=== PATIENT | male | born 1960 | race American Indian/Alaskan Native ===

== ENCOUNTER 2017-04-11 05:03 | Emergency (ER) | payer BC, OTHER ==
[2017-04-11 05:11] VITALS: BP 169/98
--- NOTE | 2017-04-11 05:18 | EDM.PDOC ---
ED HPI GENERAL MEDICAL PROBLEM - General Chief Complaint: Fever Stated Complaint: CHILLS AND CANT WARM UP Time Seen by Provider: 04/11/17 05:17 Source of Information: Reports: Patient History Limitations: Reports: No Limitations - History of Present Illness INITIAL COMMENTS - FREE TEXT/NARRATIVE: c/o chills shaky past few hours not getting any better. - Related Data Allergies Allergy/AdvReac Type Severity Reaction Status Date / Time No Known Allergies Allergy Verified 04/11/17 05:13 Home Meds: Home Meds Acetaminophen [Tylenol] 650 mg PO TID 04/11/17 [History] Aspirin [Ecotrin] 81 mg PO DAILY 04/11/17 [History] Gabapentin [Neurontin] 300 mg PO TID 04/11/17 [History] Insulin Aspart [NovoLOG] 18 unit SUBCUT TIDAC 04/11/17 [History] Insulin Detemir [Levemir] 32 unit SQ BID 04/11/17 [History] Lisinopril [Prinivil] 5 mg PO DAILY 04/11/17 [History] Past Medical History HEENT History: Reports: Impaired Vision Cardiovascular History: Reports: Hypertension Genitourinary History: Reports: Diabetic Nephropathy Musculoskeletal History: Reports: Osteoarthritis Neurological History: Reports: Neuropathy, Diabetic Endocrine/Metabolic History: Reports: Diabetes, Type II, Obesity/BMI 30+ - Past Surgical History GI Surgical History: Reports: Cholecystectomy Social & Family History - Family History Family Medical History: Noncontributory - Tobacco Use Smoking Status *Q: Former Smoker (quit at age 40.) Second Hand Smoke Exposure: No - Recreational Drug Use Recreational Drug Use: No - Living Situation & Occupation Living situation: Reports: with Family Occupation: Disabled ED ROS GENERAL - Review of Systems Review Of Systems: ROS reveals no pertinent complaints other than HPI. ED EXAM, GENERAL - Physical Exam Exam: See Below Exam Limited By: No Limitations General Appearance: Alert, WD/WN, Mild Distress, Other (general discomfort) Ears: Hearing Grossly Normal Throat/Mouth: Normal Voice, No Airway Compromise, Inflammation Head: Atraumatic Neck: Non-Tender, Full Range of Motion Respiratory/Chest: No Respiratory Distress, Lungs Clear, Normal Breath Sounds Cardiovascular: Regular Rate, Rhythm GI/Abdominal: Soft, Non-Tender Neurological: Alert, Oriented, Normal Cognition, Normal Gait, No Motor/Sensory Deficits Psychiatric: Tearful Skin Exam: Warm, Dry Lymphatic: No Adenopathy Course - Vital Signs Last Recorded V/S: Last Vital Signs Temp 37.6 C 04/11/17 05:09 Pulse 118 H 04/11/17 05:09 Resp 16 04/11/17 05:09 BP 169/98 H 04/11/17 05:09 Pulse Ox 95 04/11/17 05:09 - Orders/Labs/Meds Orders: Active Orders 24 hr Category Date Time Status CULTURE STREP A CONFIRMATION [] Stat Lab 04/11/17 05:12 Results STREP SCRN A RAPID W CULT CONF [] Stat Lab 04/11/17 05:12 Results Ketorolac [Toradol] Med 04/11/17 05:53 Once 30 mg IM ONETIME ONE cefTRIAXone 1 GM,Lidocaine 1% 2.1 ML Med 04/11/17 05:53 Ordered cefTRIAXone [Rocephin] 1 gm Lidocaine 1% [Xylocaine-MPF 1%] 2.1 ml IM ONETIME - Re-Assessments/Exams Free Text/Narrative Re-Assessment/Exam: 04/11/17 05:54 results discussed with pt & spouse Departure - Departure Time of Disposition: 05:54 Disposition: Home, Self-Care 01 Condition: Good Clinical Impression: Tonsillitis, Viral syndrome - Discharge Information Instructions: Fever, Adult, [id number] Forms: ED Department Discharge Additional Instructions: 1) drink lots of liquids 2) take aspirin 4 hourly for fever & chills 3) recheck as needed - My Orders Last 24 Hours: My Active Orders 04/11/17 05:12 CULTURE STREP A CONFIRMATION [] Stat STREP SCRN A RAPID W CULT CONF [] Stat 04/11/17 05:53 Ketorolac [Toradol] 30 mg IM ONETIME ONE cefTRIAXone 1 GM,Lidocaine 1% 2.1 ML cefTRIAXone [Rocephin] 1 gm Lidocaine 1% [ Xylocaine-MPF 1%] 2.1 ml IM ONETIME - Assessment/Plan Last 24 Hours: My Active Orders 04/11/17 05:12 CULTURE STREP A CONFIRMATION [RM] Stat STREP SCRN A RAPID W CULT CONF [] Stat 04/11/17 05:53 Ketorolac [Toradol] 30 mg IM ONETIME ONE cefTRIAXone 1 GM,Lidocaine 1% 2.1 ML cefTRIAXone [Rocephin] 1 gm Lidocaine 1% [ Xylocaine-MPF 1%] 2.1 ml IM ONETIME
[2017-04-11] MEDS ORDERED: cefTRIAXone 1 GM, Lidocaine 1% 2.1 ML IM ONE ×2 (05:53)
[2017-04-11] MEDS ORDERED: Ketorolac 30 MG/ML SDV IM ONE (05:53)
== END 2017-04-11 06:26 | disposition home or self-care (01) ==
LOC: DL.ED 05:03
DX: J03.90 Acute tonsillitis, unspecified (principal); B34.9 Viral infection, unspecified; H54.7 Unspecified visual loss; I10 Essential (primary) hypertension; E11.21 Type 2 diabetes mellitus with diabetic nephropathy; E11.40 Type 2 diabetes mellitus with diabetic neuropathy, unspecified; E66.9 Obesity, unspecified; Z90.49 Acquired absence of other specified parts of digestive tract; Z87.891 Personal history of nicotine dependence; Z79.899 Other long term (current) drug therapy; Z79.82 Long term (current) use of aspirin; Z79.4 Long term (current) use of insulin
CPT/HCPCS: 87081; 87430; 87804; 99283; J0696; J1885

== ENCOUNTER 2017-06-04 11:08 | Emergency (ER) | payer OTHER ==
[2017-06-04] MEDS ORDERED: Sodium Chloride 0.9% 10 ML Syringe FLUSH PRN (11:26)
--- NOTE | 2017-06-04 11:52 | EDM.PDOC ---
<Kaylie Cruz - Last Filed: 06/04/17 18:08> ED HPI GENERAL MEDICAL PROBLEM - General Chief Complaint: General Stated Complaint: Weakness, nausea, vomiting Time Seen by Provider: 06/04/17 11:15 Source of Information: Reports: Patient, Family History Limitations: Reports: No Limitations - History of Present Illness INITIAL COMMENTS - FREE TEXT/NARRATIVE: Patient presents to the clinic with his with c/o weakness beginning Wednesday. The weakness has been increasing throughout the week with nausea and vomiting beginning yesterday. states they do have a grandchild in the home that has strep throat. The patient states he is diabetic and is blood sugars have been running high. states he has been running fevers for the past few days. Denies chest pains or sob. Onset: Gradual Onset Date: 05/31/17 Severity: Moderate Improves with: Reports: None Worsens with: Reports: Movement Associated Symptoms: Reports: Nausea/Vomiting, Weakness - Related Data Allergies Allergy/AdvReac Type Severity Reaction Status Date / Time No Known Allergies Allergy Verified 04/11/17 05:13 Home Meds: Home Meds Acetaminophen [Tylenol] 650 mg PO TID 04/11/17 [History] Aspirin [Ecotrin] 81 mg PO DAILY 04/11/17 [History] Gabapentin [Neurontin] 300 mg PO TID 04/11/17 [History] Insulin Aspart [NovoLOG] 18 unit SUBCUT TIDAC 04/11/17 [History] Insulin Detemir [Levemir] 32 unit SQ BID 04/11/17 [History] Losartan [Cozaar] 1 tab PO DAILY 06/04/17 [History] Pioglitazone [Actos] 1 tab PO DAILY 06/04/17 [History] Tamsulosin HCl 1 tab PO DAILY 06/04/17 [History] Past Medical History HEENT History: Reports: Impaired Vision Cardiovascular History: Reports: Hypertension Genitourinary History: Reports: Diabetic Nephropathy Musculoskeletal History: Reports: Osteoarthritis Neurological History: Reports: Neuropathy, Diabetic Endocrine/Metabolic History: Reports: Diabetes, Type II, Obesity/BMI 30+ - Infectious Disease History Infectious Disease History: Reports: None - Past Surgical History GI Surgical History: Reports: Cholecystectomy Social & Family History - Family History Family Medical History: Noncontributory - Tobacco Use Smoking Status *Q: Former Smoker (quit at age 40.) Used Tobacco, but Quit: Yes Month Tobacco Last Used: 1999 Second Hand Smoke Exposure: No - Caffeine Use Caffeine Use: Reports: Coffee, Soda, Tea - Recreational Drug Use Recreational Drug Use: No - Living Situation & Occupation Living situation: Reports: with Family Occupation: Disabled ED ROS GENERAL - Review of Systems Review Of Systems: ROS reveals no pertinent complaints other than HPI. ED EXAM, GENERAL - Physical Exam Exam: See Below Exam Limited By: No Limitations General Appearance: Alert, WD/WN, Anxious Eye Exam: Bilateral Eye: Normal Inspection, PERRL Ears: Normal External Exam Nose: Normal Inspection Throat/Mouth: Normal Inspection Head: Atraumatic, Normocephalic Neck: Normal Inspection Respiratory/Chest: No Respiratory Distress, Lungs Clear, Normal Breath Sounds, No Accessory Muscle Use, Chest Non-Tender Cardiovascular: Normal Peripheral Pulses, Regular Rate, Rhythm, No Edema, No Gallop, No JVD, No Murmur, No Rub Peripheral Pulses: 1+: Radial (L), Radial (R) GI/Abdominal: Normal Bowel Sounds, Soft, Non-Tender (Male) Exam: Deferred Rectal (Males) Exam: Deferred Back Exam: Normal Inspection, Full Range of Motion Extremities: Normal Inspection, Normal Range of Motion Neurological: Alert, Oriented, Normal Cognition Psychiatric: Anxious Skin Exam: Warm, Dry, Intact Lymphatic: No Adenopathy Course - Vital Signs Last Recorded V/S: Last Vital Signs Temp 36.3 C 06/04/17 11:16 Pulse 90 06/04/17 11:16 Resp 36 H 06/04/17 11:16 BP 154/87 H 06/04/17 11:16 Pulse Ox 98 06/04/17 11:16 - Orders/Labs/Meds Orders: Active Orders 24 hr Category Date Time Status Blood Glucose Check, Bedside [RC] ONETIME Care 06/04/17 11:10 Active EKG Documentation Completion [RC] STAT Care 06/04/17 11:26 Active Peripheral IV Care [RC] . DIRECTED Care 06/04/17 11:29 Active Peripheral IV Insertion Adult [OM.PC] Stat Oth 06/04/17 11:26 Ordered Labs: Laboratory Tests 06/04/17 06/04/17 06/04/17 Range/Units 11:22 11:40 11:40 WBC 11.9 H (5.0-10.0) 10^3/uL RBC 5.97 (4.6-6.2) 10^6/uL Hgb 15.5 (14.0-18.0) g/dL Hct 48.0 (40.0-54.0) % MCV 80.4 (80-100) fL MCH 26.0 L (27.0-34.0) pg MCHC 32.3 L (33.0-35.0) g/dL Plt Count 210 (150-450) 10^3/uL Neut % (Auto) 82.5 H (42.2-75.2) % Lymph % (Auto) 10.6 L (20.5-50.1) % Bennett % (Auto) 6.3 (2-8) % Eos % (Auto) 0.2 L (1.0-3.0) % Baso % (Auto) 0.4 (0.0-1.0) % Sodium 138 (135-145) mmol/L Potassium 4.1 (3.6-5.0) mmol/L Chloride 103 (101-111) mmol/L Carbon Dioxide 24.0 (21.0-31.0) mmol/L Anion Gap 15.1 BUN 30 H (7-18) mg/dL Creatinine 1.7 H (0.6-1.3) mg/dL Est Cr Clr Drug Dosing TNP Estimated GFR (MDRD) 42 BUN/Creatinine Ratio 17.64 Glucose 315 H (74-105) mg/dL POC Glucose 321 H (70-105) mg/dl Lactic Acid (0.5-2.2) mmol/L Calcium 9.0 (8.4-10.2) mg/dl Magnesium 2.1 (1.8-2.5) mg/dL Total Bilirubin 0.5 (0.2-1.0) mg/dL AST 18 (10-42) IU/L ALT 25 (10-60) IU/L Alkaline Phosphatase 90 (42-121) IU/L Troponin I < 0.02 (0.00-0.02) ng/ml C-Reactive Protein (0.0-1.3) mg/dL Total Protein 7.4 (6.7-8.2) g/dl Albumin 3.2 (3.2-5.5) g/dl Globulin 4.2 Albumin/Globulin Ratio 0.76 TSH, Ultra Sensitive (0.35-7.0) uIu/mL 06/04/17 06/04/17 Range/Units 11:40 11:40 WBC (5.0-10.0) 10^3/uL RBC (4.6-6.2) 10^6/uL Hgb (14.0-18.0) g/dL Hct (40.0-54.0) % MCV (80-100) fL MCH (27.0-34.0) pg MCHC (33.0-35.0) g/dL Plt Count (150-450) 10^3/uL Neut % (Auto) (42.2-75.2) % Lymph % (Auto) (20.5-50.1) % Bennett % (Auto) (2-8) % Eos % (Auto) (1.0-3.0) % Baso % (Auto) (0.0-1.0) % Sodium (135-145) mmol/L Potassium (3.6-5.0) mmol/L Chloride (101-111) mmol/L Carbon Dioxide (21.0-31.0) mmol/L Anion Gap BUN (7-18) mg/dL Creatinine (0.6-1.3) mg/dL Est Cr Clr Drug Dosing Estimated GFR (MDRD) BUN/Creatinine Ratio Glucose (74-105) mg/dL POC Glucose (70-105) mg/dl Lactic Acid 1.9 (0.5-2.2) mmol/L Calcium (8.4-10.2) mg/dl Magnesium (1.8-2.5) mg/dL Total Bilirubin (0.2-1.0) mg/dL AST (10-42) IU/L ALT (10-60) IU/L Alkaline Phosphatase (42-121) IU/L Troponin I (0.00-0.02) ng/ml C-Reactive Protein 0.7 (0.0-1.3) mg/dL Total Protein (6.7-8.2) g/dl Albumin (3.2-5.5) g/dl Globulin Albumin/Globulin Ratio TSH, Ultra Sensitive 1.24 (0.35-7.0) uIu/mL Meds: Medications Discontinued Medications Generic Name Dose Route Start Last Admin Trade Name Freq PRN Reason Stop Dose Admin Ondansetron HCl 4 mg 06/04/17 12:16 06/04/17 12:24 Zofran IV 06/04/17 12:17 4 mg ONETIME ONE Administration Sodium Chloride 10 ml 06/04/17 11:26 06/04/17 11:23 Saline Flush FLUSH 10 ml ASDIRECTED PRN Administration Keep Vein Open Departure - Departure Time of Disposition: 12:56 Disposition: DC/Tfer to Acute Hospital 02 Clinical Impression: CVA, Cerebrovascular accident Nontraumatic cerebellar hemorrhage Qualifiers: Laterality: unspecified laterality Qualified Code(s): I61.4 - Nontraumatic intracerebral hemorrhage in cerebellum - Discharge Information Referrals: Skip Reyez [Primary Care Provider] - Forms: ED Department Discharge, Interfacility Transfer EMTDOMENICA <Huang Payne - Last Filed: 06/05/17 10:57> Course - Radiology Interpretation Free Text/Narrative:: CT Head: acute cerebellar hemorrhage, see Rad. report. Departure - Departure Condition: Critical
[2017-06-04 12:06] LABS: CHLORIDE,CL 103 mmol/L (101-111); SODIUM,NA 138 mmol/L (135-145)
--- NOTE | 2017-06-04 12:10 | CT ---
Clinical history: 57-year-old morbidly obese hypertensive, insulin-dependent diabetic with severe shelly tigo (baby aspirin). Scan technique: Volume acquisition of data emergency unenhanced CT scan of the head and brain obtaine d with patient lying supine on the Siemens multi slice scanner [facility]. All data archived in the PACS system for storage, reformatting axial/sagittal/coronal plane s and study (bone/brain windows). Interpretation: Abnormal. 1. *Prominent 2.2 cm diameter hematoma (acute bleed) cerebellum on the right with surrounding edema a nd mass effect, partially compromising the fourth ventricle in the posterior fossa. 2. No sign of acute supratentorial intracerebral/intraventricular/subarachnoid blood. No epidural or subdural hematoma. 3. Mirror-image normal lateral ventricles and midline third ventricle. No supratentorial or posterior fossa mass lesion. 4. Brainstem unremarkable. 5. Uniformly thick bony calvarium. Symmetric clear pneumatization of the mastoid and paranasal sinuse s.
--- NOTE | 2017-06-04 12:12 | CR ---
Clinical history: 57-year-old hypertensive diabetic male with severe vertigo (acute posterior fossa, cerebellar, bleed). Interpretation: No acute cardiopulmonary abnormality identified despite less than optimal inspiratory effort obese patient. Normal cardiac silhouette without alveolar edema or dependent effusion. No lung mass, hilar lymphadenopathy or focal lobar pneumonia. No atelectasis/collapse. No pneumothorax.
[2017-06-04] MEDS ORDERED: Ondansetron 4 MG/2 ML SDV IV ONE (12:16)
[2017-06-04 12:17] VITALS: BP 154/87
--- NOTE | 2017-06-06 13:13 | EKG ---
06/04/2017 - AVTAR BETANCUR - A 12-lead EKG interpretation shows possible atrial flutter with irregular rate. No significant ST elevation or ST depression noted on this 12-lead EKG. Nonspecific ST-T wave changes noted on lead V2 and V3. [facility] /[id number]
== END 2017-06-04 12:56 ==
LOC: DL.ED 11:08
DX: I61.4 Nontraumatic intracerebral hemorrhage in cerebellum (principal); H54.7 Unspecified visual loss; I10 Essential (primary) hypertension; E66.9 Obesity, unspecified; E11.40 Type 2 diabetes mellitus with diabetic neuropathy, unspecified; M19.90 Unspecified osteoarthritis, unspecified site; Z87.891 Personal history of nicotine dependence; Z79.82 Long term (current) use of aspirin; Z90.49 Acquired absence of other specified parts of digestive tract
CPT/HCPCS: 36415; 70450; 71010; 80053; 82962; 83605; 83735; 84443; 84484; 85025; 86140; 87430; 93005; 96374; 99285; J2405; J7050

== ENCOUNTER 2017-06-23 20:35 | Emergency (ER) | payer OTHER ==
[2017-06-23 21:46] VITALS: BP 159/116
[2017-06-23] MEDS ORDERED: Insulin Regular, Human 100 Units/ML 3 ML Vial IV ONE (21:55)
[2017-06-23] MEDS ORDERED: Morphine 2 MG/ML Syringe IVPUSH ONE (22:03)
[2017-06-23] MEDS ORDERED: HYDROmorphone 1 MG/ML Syringe IVPUSH ONE (22:08)
[2017-06-23] MEDS ORDERED: Sodium Chloride 0.9% 1,000 ML IV ONE (22:09)
--- NOTE | 2017-06-24 05:46 | EDM.PDOC ---
ED HPI GENERAL MEDICAL PROBLEM - General Chief Complaint: Neuro Symptoms/Deficits Stated Complaint: HX OF BRAIN BLEED,SPEECH ETC, [id number] Time Seen by Provider: 06/23/17 21:45 Source of Information: Reports: Patient History Limitations: Reports: No Limitations - History of Present Illness INITIAL COMMENTS - FREE TEXT/NARRATIVE: ED with with c/o increased weakness and tremor to left arm, with confusion. Hx intracranial bleed 06/04 and surgery to remove mass on 06/12. reports blod sugar last eleazar 528 and in 300 range today. Patient had been on steroids but thinks he has completed course. Unsure of current medications. BP medications have changed. Frontal Headache Pain Score (Numeric/FACES): 8 - Related Data Allergies Allergy/AdvReac Type Severity Reaction Status Date / Time No Known Allergies Allergy Verified 04/11/17 05:13 Home Meds: Home Meds Acetaminophen [Tylenol] 650 mg PO TID 04/11/17 [History] Aspirin [Ecotrin] 81 mg PO DAILY 04/11/17 [History] Gabapentin [Neurontin] 300 mg PO TID 04/11/17 [History] Insulin Aspart [NovoLOG] 18 unit SUBCUT TIDAC 04/11/17 [History] Insulin Detemir [Levemir] 32 unit SQ BID 04/11/17 [History] Losartan [Cozaar] 1 tab PO DAILY 06/04/17 [History] Pioglitazone [Actos] 1 tab PO DAILY 06/04/17 [History] Tamsulosin HCl 1 tab PO DAILY 06/04/17 [History] Past Medical History HEENT History: Reports: Impaired Vision Other HEENT History: wears glasses Cardiovascular History: Reports: Hypertension Genitourinary History: Reports: Diabetic Nephropathy Musculoskeletal History: Reports: Osteoarthritis Neurological History: Reports: Neuropathy, Diabetic Endocrine/Metabolic History: Reports: Diabetes, Type II, Obesity/BMI 30+ - Infectious Disease History Infectious Disease History: Reports: None - Past Surgical History GI Surgical History: Reports: Cholecystectomy Social & Family History - Family History Family Medical History: Noncontributory - Tobacco Use Smoking Status *Q: Unknown Ever Smoked Used Tobacco, but Quit: Yes Month Tobacco Last Used: 1999 Second Hand Smoke Exposure: No - Caffeine Use Caffeine Use: Reports: Coffee, Soda - Recreational Drug Use Recreational Drug Use: No - Living Situation & Occupation Living situation: Reports: with Family Occupation: Disabled ED ROS GENERAL - Review of Systems Review Of Systems: See Below Constitutional: Reports: Weakness HEENT: Reports: No Symptoms Respiratory: Reports: Other (Breathing fast). Denies: Cough Cardiovascular: Reports: No Symptoms Endocrine: Reports: High Glucose GI/Abdominal: Reports: No Symptoms : Reports: Frequency Musculoskeletal: Reports: No Symptoms Skin: Reports: Wound (surgical occipital) Neurological: Reports: Confusion, Headache, Tremors, Difficulty Walking, Gait Disturbance ED EXAM, NEURO - Physical Exam Exam: See Below Exam Limited By: No Limitations General Appearance: Alert, Lethargic Eye Exam: Bilateral Eye: EOMI, Normal Fundi, PERRL Ears: Normal External Exam, Normal TMs Nose: Normal Inspection Throat/Mouth: Normal Inspection Head Exam: Normocephalic, Other (sugical incision occiptial CDI) Respiratory/Chest: Lungs Clear, Other (tachpnea). No: Rales, Rhonchi, Wheezing Cardiovascular: Regular Rate, Rhythm, Tachycardia GI/Abdominal: Normal Bowel Sounds, Soft, Non-Tender Neurological: Alert, Normal Dorsiflexion, Tremor (left), Difficulty Walking ( transfer with assist . equal strong community center worker strength, no pronator drift. ). No: Oriented x 3 (oreinted person, confused time place, question on date would state [place]. responses delayed), Abnormal Finger to Nose Extremities: Normal Inspection Psychiatric: Flat Affect Skin Exam: Warm, Dry, Intact, Normal Color Course - Vital Signs Last Recorded V/S: Last Vital Signs Temp 99.4 F 06/23/17 21:44 Pulse 130 H 06/23/17 21:44 Resp 20 06/23/17 21:44 BP 159/116 H 06/23/17 21:44 Pulse Ox 95 06/23/17 21:44 - Orders/Labs/Meds Orders: Active Orders 24 hr Category Date Time Status Glucose [Blood Glucose Check, Bedside] [RC] ONETIME Care 06/23/17 21:02 Active Glucose [Blood Glucose Check, Bedside] [RC] ONETIME Care 06/23/17 23:40 Active CULTURE BLOOD [BC] Stat Lab 06/23/17 21:30 Received CULTURE BLOOD [BC] Stat Lab 06/23/17 21:48 Received Blood Culture x2 Reflex Set [OM.PC] Stat Oth 06/23/17 21:02 Ordered Labs: Laboratory Tests 06/23/17 06/23/17 06/23/17 Range/Units 21:30 21:30 21:30 WBC 16.8 H (5.0-10.0) 10^3/uL RBC 6.20 (4.6-6.2) 10^6/uL Hgb 16.3 (14.0-18.0) g/dL Hct 48.9 (40.0-54.0) % MCV 78.9 L (80-100) fL MCH 26.3 L (27.0-34.0) pg MCHC 33.3 (33.0-35.0) g/dL Plt Count 297 D (150-450) 10^3/uL Neut % (Auto) 87.1 H (42.2-75.2) % Lymph % (Auto) 5.8 L (20.5-50.1) % [place] % (Auto) 5.8 (2-8) % Eos % (Auto) 1.1 (1.0-3.0) % Baso % (Auto) 0.2 (0.0-1.0) % PT 9.0 (9.0-12.0) SEC INR 0.9 (0.9-1.2) Sodium 126 L D (135-145) mmol/L Potassium 5.1 H (3.6-5.0) mmol/L Chloride 91 L D (101-111) mmol/L Carbon Dioxide 24.0 (21.0-31.0) mmol/L Anion Gap 16.1 BUN 46 H (7-18) mg/dL Creatinine 2.0 H (0.6-1.3) mg/dL Est Cr Clr Drug Dosing 40.75 mL/min Estimated GFR (MDRD) 35 BUN/Creatinine Ratio 23.00 Glucose 382 H (74-105) mg/dL POC Glucose (70-105) mg/dl Lactic Acid (0.5-2.2) mmol/L Calcium 8.4 (8.4-10.2) mg/dl Total Bilirubin 0.4 (0.2-1.0) mg/dL AST 52 H (10-42) IU/L ALT 112 H (10-60) IU/L Alkaline Phosphatase 198 H (42-121) IU/L Total Protein 7.1 (6.7-8.2) g/dl Albumin 2.5 L (3.2-5.5) g/dl Globulin 4.6 Albumin/Globulin Ratio 0.54 Urine Color (YELLOW) Urine Appearance (CLEAR) Urine pH (5.0-9.0) Ur Specific [place] (1.005-1.030) Urine Protein (NEGATIVE) Urine Glucose (UA) (NEGATIVE) Urine Ketones (NEGATIVE) Urine Occult Blood (NEGATIVE) Urine Nitrite (NEGATIVE) Urine Bilirubin (NEGATIVE) Urine Urobilinogen (0.2-1.0) mg/dL Ur Leukocyte Esterase (NEGATIVE) Urine RBC /HPF Urine WBC (0-5/HPF) /HPF Ur Epithelial Cells /HPF Amorphous Sediment (0/HPF) /HPF Urine Bacteria (0-FEW/HPF) /HPF Granular Casts /LPF Fine Granular Casts (0/LPF) /LPF 06/23/17 06/23/17 06/23/17 Range/Units 21:30 21:41 22:10 WBC (5.0-10.0) 10^3/uL RBC (4.6-6.2) 10^6/uL Hgb (14.0-18.0) g/dL Hct (40.0-54.0) % MCV (80-100) fL MCH (27.0-34.0) pg MCHC (33.0-35.0) g/dL Plt Count (150-450) 10^3/uL Neut % (Auto) (42.2-75.2) % Lymph % (Auto) (20.5-50.1) % [place] % (Auto) (2-8) % Eos % (Auto) (1.0-3.0) % Baso % (Auto) (0.0-1.0) % PT (9.0-12.0) SEC INR (0.9-1.2) Sodium (135-145) mmol/L Potassium (3.6-5.0) mmol/L Chloride (101-111) mmol/L Carbon Dioxide (21.0-31.0) mmol/L Anion Gap BUN (7-18) mg/dL Creatinine (0.6-1.3) mg/dL Est Cr Clr Drug Dosing mL/min Estimated GFR (MDRD) BUN/Creatinine Ratio Glucose (74-105) mg/dL POC Glucose 417 H* (70-105) mg/dl Lactic Acid 1.5 (0.5-2.2) mmol/L Calcium (8.4-10.2) mg/dl Total Bilirubin (0.2-1.0) mg/dL AST (10-42) IU/L ALT (10-60) IU/L Alkaline Phosphatase (42-121) IU/L Total Protein (6.7-8.2) g/dl Albumin (3.2-5.5) g/dl Globulin Albumin/Globulin Ratio Urine Color Dark yellow (YELLOW) Urine Appearance Cloudy (CLEAR) Urine pH 5.0 (5.0-9.0) Ur Specific [place] 1.020 (1.005-1.030) Urine Protein >=300 H (NEGATIVE) Urine Glucose (UA) 500 H (NEGATIVE) Urine Ketones Negative (NEGATIVE) Urine Occult Blood Moderate H (NEGATIVE) Urine Nitrite Negative (NEGATIVE) Urine Bilirubin Negative (NEGATIVE) Urine Urobilinogen 0.2 (0.2-1.0) mg/dL Ur Leukocyte Esterase Negative (NEGATIVE) Urine RBC 5-10 H /HPF Urine WBC 0-5 (0-5/HPF) /HPF Ur Epithelial Cells Rare /HPF Amorphous Sediment Few (0/HPF) /HPF Urine Bacteria Few (0-FEW/HPF) /HPF Granular Casts Moderate /LPF Fine Granular Casts Rare H (0/LPF) /LPF 06/23/17 Range/Units 23:44 WBC (5.0-10.0) 10^3/uL RBC (4.6-6.2) 10^6/uL Hgb (14.0-18.0) g/dL Hct (40.0-54.0) % MCV (80-100) fL MCH (27.0-34.0) pg MCHC (33.0-35.0) g/dL Plt Count (150-450) 10^3/uL Neut % (Auto) (42.2-75.2) % Lymph % (Auto) (20.5-50.1) % [place] % (Auto) (2-8) % Eos % (Auto) (1.0-3.0) % Baso % (Auto) (0.0-1.0) % PT (9.0-12.0) SEC INR (0.9-1.2) Sodium (135-145) mmol/L Potassium (3.6-5.0) mmol/L Chloride (101-111) mmol/L Carbon Dioxide (21.0-31.0) mmol/L Anion Gap BUN (7-18) mg/dL Creatinine (0.6-1.3) mg/dL Est Cr Clr Drug Dosing mL/min Estimated GFR (MDRD) BUN/Creatinine Ratio Glucose (74-105) mg/dL POC Glucose 309 H (70-105) mg/dl Lactic Acid (0.5-2.2) mmol/L Calcium (8.4-10.2) mg/dl Total Bilirubin (0.2-1.0) mg/dL AST (10-42) IU/L ALT (10-60) IU/L Alkaline Phosphatase (42-121) IU/L Total Protein (6.7-8.2) g/dl Albumin (3.2-5.5) g/dl Globulin Albumin/Globulin Ratio Urine Color (YELLOW) Urine Appearance (CLEAR) Urine pH (5.0-9.0) Ur Specific [place] (1.005-1.030) Urine Protein (NEGATIVE) Urine Glucose (UA) (NEGATIVE) Urine Ketones (NEGATIVE) Urine Occult Blood (NEGATIVE) Urine Nitrite (NEGATIVE) Urine Bilirubin (NEGATIVE) Urine Urobilinogen (0.2-1.0) mg/dL Ur Leukocyte Esterase (NEGATIVE) Urine RBC /HPF Urine WBC (0-5/HPF) /HPF Ur Epithelial Cells /HPF Amorphous Sediment (0/HPF) /HPF Urine Bacteria (0-FEW/HPF) /HPF Granular Casts /LPF Fine Granular Casts (0/LPF) /LPF Meds: Medications Discontinued Medications Generic Name Dose Route Start Last Admin Trade Name Freq PRN Reason Stop Dose Admin Hydromorphone HCl 1 mg 06/23/17 22:08 06/23/17 22:25 Dilaudid IVPUSH 06/23/17 22:09 1 mg ONETIME ONE Administration Sodium Chloride 1,000 mls @ 200 mls/hr 06/23/17 22:09 06/23/17 22:25 Normal Saline IV 06/24/17 03:08 200 mls/hr .BOLUS ONE Administration Insulin Human Regular 5 unit 06/23/17 21:55 06/23/17 22:27 Humulin R IV 06/23/17 21:56 5 units ONETIME ONE Administration Protocol Morphine Sulfate 2 mg 06/23/17 22:03 06/23/17 22:29 Morphine IVPUSH 06/23/17 22:04 Not Given ONETIME ONE - Radiology Interpretation Free Text/Narrative:: CT head- no acute hemorrhage or ischemia. Scattered globules of extra axial fat density with in ventricular system of uncertain etiology. 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 David Romeo, accepting of patient in transfer for further evaluation and mangement. Departure - Departure Time of Disposition: 00:15 Disposition: DC/Tfer to Acute Hospital 02 Condition: Undetermined Clinical Impression: Recent cerebral hemorrhage Altered mental status Qualifiers: Altered mental status type: disorientation Qualified Code(s): R41.0 - Disorientation, unspecified Hyperglycemia due to type 2 diabetes mellitus Qualifiers: Diabetes mellitus terminal computer operator insulin use: unspecified terminal computer operator insulin use status Qualified Code(s): E11.65 - Type 2 diabetes mellitus with hyperglycemia - Discharge Information Referrals: Norm Carrasquillo MD [Primary Care Provider] - Forms: ED Department Discharge - My Orders Last 24 Hours: My Active Orders 06/23/17 21:02 Glucose [Blood Glucose Check, Bedside] [RC] ONETIME Blood Culture x2 Reflex Set [OM.PC] Stat 06/23/17 21:30 CULTURE BLOOD [BC] Stat 06/23/17 21:48 CULTURE BLOOD [BC] Stat 06/23/17 23:40 Glucose [Blood Glucose Check, Bedside] [RC] ONETIME - Assessment/Plan Last 24 Hours: My Active Orders 06/23/17 21:02 Glucose [Blood Glucose Check, Bedside] [RC] ONETIME Blood Culture x2 Reflex Set [OM.PC] Stat 06/23/17 21:30 CULTURE BLOOD [BC] Stat 06/23/17 21:48 CULTURE BLOOD [BC] Stat 06/23/17 23:40 Glucose [Blood Glucose Check, Bedside] [RC] ONETIME
== END 2017-06-24 00:35 ==
LOC: DL.ED 20:35
DX: I61.4 Nontraumatic intracerebral hemorrhage in cerebellum (principal); E11.65 Type 2 diabetes mellitus with hyperglycemia; I10 Essential (primary) hypertension; E11.40 Type 2 diabetes mellitus with diabetic neuropathy, unspecified; E66.9 Obesity, unspecified; R41.0 Disorientation, unspecified; Z79.82 Long term (current) use of aspirin; Z79.899 Other long term (current) drug therapy; Z79.4 Long term (current) use of insulin
CPT/HCPCS: 36415; 70450; 80053; 81001; 82962; 83605; 85025; 85610; 87040; 96361; 96374; 96375; 99285; J1170; J1815; J7030

== ENCOUNTER 2017-07-12 21:26 | Emergency (ER) | payer OTHER ==
[2017-07-12 21:58] VITALS: BP 113/64
--- NOTE | 2017-07-13 00:09 | EDM.PDOC ---
ED HPI GENERAL MEDICAL PROBLEM - General Chief Complaint: General Stated Complaint: PIC LINE REMOVED, LINE GOING UP ARM Time Seen by Provider: 07/12/17 22:00 Source of Information: Reports: Patient History Limitations: Reports: No Limitations - History of Present Illness INITIAL COMMENTS - FREE TEXT/NARRATIVE: ED with family. voices concern with redness to right upper arm. Patient had PICC line removed yesterday. Hx of CVA, craniotomy, followed by meningitis. Still drainage from base of surical wound. Surgeon aware. No fever or tenderness to right arm. Diabetic, no recent spikes in blood sugars. Onset: Today - Related Data Allergies Allergy/AdvReac Type Severity Reaction Status Date / Time No Known Allergies Allergy Verified 07/12/17 21:58 Home Meds: Home Meds Acetaminophen [Tylenol] 650 mg PO TID 04/11/17 [History] Aspirin [Ecotrin] 81 mg PO DAILY 04/11/17 [History] Gabapentin [Neurontin] 300 mg PO TID 04/11/17 [History] Insulin Aspart [NovoLOG] 18 unit SUBCUT TIDAC 04/11/17 [History] Insulin Detemir [Levemir] 32 unit SQ BID 04/11/17 [History] Losartan [Cozaar] 1 tab PO DAILY 06/04/17 [History] Pioglitazone [Actos] 1 tab PO DAILY 06/04/17 [History] Tamsulosin HCl 1 tab PO DAILY 06/04/17 [History] Past Medical History HEENT History: Reports: Impaired Vision Other HEENT History: wears glasses Cardiovascular History: Reports: High Cholesterol, Hypertension Respiratory History: Reports: Intubation, Previous Genitourinary History: Reports: Diabetic Nephropathy Musculoskeletal History: Reports: Osteoarthritis Neurological History: Reports: Neuropathy, Diabetic Endocrine/Metabolic History: Reports: Diabetes, Type II, Obesity/BMI 30+ - Infectious Disease History Infectious Disease History: Reports: None - Past Surgical History GI Surgical History: Reports: Cholecystectomy Musculoskeletal Surgical History: Reports: Hip Replacement Social & Family History - Family History Family Medical History: Noncontributory - Tobacco Use Smoking Status *Q: Former Smoker Years of Tobacco use: 20 Packs/Tins Daily: 1.5 Used Tobacco, but Quit: Yes Month Tobacco Last Used: dec Second Hand Smoke Exposure: No - Caffeine Use Caffeine Use: Reports: Coffee - Recreational Drug Use Recreational Drug Use: No - Living Situation & Occupation Living situation: Reports: with Family Occupation: Disabled ED ROS GENERAL - Review of Systems Review Of Systems: See Below Constitutional: Denies: Fever ED EXAM, GENERAL - Physical Exam Exam: See Below Exam Limited By: No Limitations General Appearance: Alert, No Apparent Distress, Obese (morbid) Eye Exam: Bilateral Eye: EOMI Ears: Normal External Exam Nose: Normal Inspection Throat/Mouth: Normal Inspection Head: Atraumatic, Normocephalic Neck: Other (posterior inscision from mid java lead developer to base of skull, small amount clear yellow drainag from base of wound). No: Limited Range of Motion, Tender Midline Respiratory/Chest: No Respiratory Distress, Lungs Clear, Normal Breath Sounds Cardiovascular: Normal Peripheral Pulses, Regular Rate, Rhythm GI/Abdominal: Normal Bowel Sounds, Soft Extremities: Normal Inspection, Normal Range of Motion Neurological: Alert, Oriented, Normal Cognition Psychiatric: Normal Affect Skin Exam: Warm, Dry, Other (red area of concernmid lateral upper arm, rectangular outline of dressing. No warmth surrounding area. No open area of redness. Pic line insertion site,scabbed. No redness or swelling. ) Course - Vital Signs Last Recorded V/S: Last Vital Signs Temp 98.8 F 07/12/17 21:53 Pulse 96 07/12/17 21:53 Resp 16 07/12/17 21:53 BP 113/64 07/12/17 21:53 Pulse Ox 95 07/12/17 21:53 - Orders/Labs/Meds Orders: Active Orders 24 hr Category Date Time Status CULTURE BLOOD [BC] Stat Lab 07/12/17 22:35 Received CULTURE BLOOD [BC] Stat Lab 07/12/17 22:40 Received CULTURE WOUND [RM] Stat Lab 07/12/17 22:38 Received Blood Culture x2 Reflex Set [OM.PC] Stat Oth 07/12/17 22:21 Ordered Labs: Laboratory Tests 07/12/17 07/12/17 07/12/17 Range/Units 22:35 22:35 22:35 WBC 7.1 (5.0-10.0) 10^3/uL RBC 4.65 (4.6-6.2) 10^6/uL Hgb 12.3 L D (14.0-18.0) g/dL Hct 38.2 L (40.0-54.0) % MCV 82.2 D (80-100) fL MCH 26.5 L (27.0-34.0) pg MCHC 32.2 L (33.0-35.0) g/dL Plt Count 199 D (150-450) 10^3/uL Neut % (Auto) 56.8 (42.2-75.2) % Lymph % (Auto) 24.4 (20.5-50.1) % [place] % (Auto) 10.4 H (2-8) % Eos % (Auto) 8.1 H (1.0-3.0) % Baso % (Auto) 0.3 (0.0-1.0) % Add Manual Diff Yes Neutrophils % (Manual) 65 (42-75) % Lymphocytes % (Manual) 20 (20-50) % Monocytes % (Manual) 7 (2-8) % Eosinophils % (Manual) 8 H (1-3) % Sodium 135 (135-145) mmol/L Potassium 4.3 (3.6-5.0) mmol/L Chloride 101 (101-111) mmol/L Carbon Dioxide 26.0 (21.0-31.0) mmol/L Anion Gap 12.3 BUN 27 H (7-18) mg/dL Creatinine 1.7 H (0.6-1.3) mg/dL Est Cr Clr Drug Dosing 49.11 mL/min Estimated GFR (MDRD) 42 BUN/Creatinine Ratio 15.88 Glucose 327 H (74-105) mg/dL Lactic Acid 1.2 (0.5-2.2) mmol/L Calcium 8.4 (8.4-10.2) mg/dl Total Bilirubin 0.5 (0.2-1.0) mg/dL AST 16 (10-42) IU/L ALT 24 (10-60) IU/L Alkaline Phosphatase 148 H (42-121) IU/L Total Protein 6.5 L (6.7-8.2) g/dl Albumin 2.7 L (3.2-5.5) g/dl Globulin 3.8 Albumin/Globulin Ratio 0.71 Departure - Departure Time of Disposition: 00:03 Disposition: Home, Self-Care 01 Condition: Good Clinical Impression: Hyperglycemia, Drainage of transplant surgical wound without infection, Skin irritation - Discharge Information Instructions: Wound Infection Referrals: PCP,Unobtain [Primary Care Provider] - Forms: ED Department Discharge Additional Instructions: monitor area around previous picc line and tape burn, follow up if any increased redness monitor drainage from surgical wound, follow up if increase or change follow up if develop fever - My Orders Last 24 Hours: My Active Orders 07/12/17 22:21 Blood Culture x2 Reflex Set [OM.PC] Stat 07/12/17 22:35 CULTURE BLOOD [BC] Stat 07/12/17 22:38 CULTURE WOUND [RM] Stat 07/12/17 22:40 CULTURE BLOOD [BC] Stat - Assessment/Plan Last 24 Hours: My Active Orders 07/12/17 22:21 Blood Culture x2 Reflex Set [OM.PC] Stat 07/12/17 22:35 CULTURE BLOOD [BC] Stat 07/12/17 22:38 CULTURE WOUND [RM] Stat 07/12/17 22:40 CULTURE BLOOD [BC] Stat
== END 2017-07-13 00:21 | disposition home or self-care (01) ==
LOC: DL.ED 21:26
DX: E11.65 Type 2 diabetes mellitus with hyperglycemia (principal); I10 Essential (primary) hypertension; E66.9 Obesity, unspecified; Z87.891 Personal history of nicotine dependence; Z79.4 Long term (current) use of insulin; Z79.82 Long term (current) use of aspirin; Z79.899 Other long term (current) drug therapy; Z98.890 Other specified postprocedural states
CPT/HCPCS: 36415; 80053; 83605; 85025; 87040; 87070; 99282

== ENCOUNTER 2017-07-25 14:17 | Emergency (ER) | payer OTHER ==
[2017-07-25 14:33] VITALS: BP 120/74
--- NOTE | 2017-07-25 14:39 | EDM.PDOC ---
ED HPI GENERAL MEDICAL PROBLEM - General Chief Complaint: Skin Complaint Stated Complaint: [id number] NECK Time Seen by Provider: 07/25/17 14:36 Source of Information: Reports: Patient History Limitations: Reports: No Limitations - History of Present Illness INITIAL COMMENTS - FREE TEXT/NARRATIVE: 57 yo [place] male c/o posterior neck wound dehiscence 2nd time since surgery June 11, 2017. No fever Onset: Today Onset Date: 07/25/17 Onset Time: 17:00 Duration: Day(s): Location: Reports: Neck Quality: Reports: Same as Previous Episode Severity: Mild Improves with: Reports: None Worsens with: Reports: None Context: Reports: Other (previous surgery 06/11/2017) Associated Symptoms: Reports: No Other Symptoms - Related Data Allergies Allergy/AdvReac Type Severity Reaction Status Date / Time No Known Allergies Allergy Verified 07/12/17 21:58 Home Meds: Home Meds Acetaminophen [Tylenol] 650 mg PO TID 04/11/17 [History] Aspirin [Ecotrin] 81 mg PO DAILY 04/11/17 [History] Gabapentin [Neurontin] 300 mg PO TID 04/11/17 [History] Insulin Aspart [NovoLOG] 18 unit SUBCUT TIDAC 04/11/17 [History] Insulin Detemir [Levemir] 32 unit SQ BID 04/11/17 [History] Losartan [Cozaar] 1 tab PO DAILY 06/04/17 [History] Pioglitazone [Actos] 1 tab PO DAILY 06/04/17 [History] Tamsulosin HCl 1 tab PO DAILY 06/04/17 [History] Past Medical History HEENT History: Reports: Impaired Vision Other HEENT History: wears glasses Cardiovascular History: Reports: High Cholesterol, Hypertension Respiratory History: Reports: Intubation, Previous Genitourinary History: Reports: Diabetic Nephropathy Musculoskeletal History: Reports: Osteoarthritis Neurological History: Reports: Neuropathy, Diabetic Endocrine/Metabolic History: Reports: Diabetes, Type II, Obesity/BMI 30+ - Infectious Disease History Infectious Disease History: Reports: None - Past Surgical History GI Surgical History: Reports: Cholecystectomy Musculoskeletal Surgical History: Reports: Hip Replacement Social & Family History - Family History Family Medical History: Noncontributory - Tobacco Use Smoking Status *Q: Former Smoker Years of Tobacco use: 20 Packs/Tins Daily: 1.5 Used Tobacco, but Quit: Yes Month Tobacco Last Used: dec Second Hand Smoke Exposure: No - Caffeine Use Caffeine Use: Reports: Coffee - Recreational Drug Use Recreational Drug Use: No - Living Situation & Occupation Living situation: Reports: with Family Occupation: Disabled ED ROS GENERAL - Review of Systems Review Of Systems: See Below Constitutional: Reports: No Symptoms HEENT: Reports: No Symptoms Respiratory: Reports: No Symptoms Cardiovascular: Reports: No Symptoms Endocrine: Reports: No Symptoms GI/Abdominal: Reports: No Symptoms : Reports: No Symptoms Musculoskeletal: Reports: No Symptoms Skin: Reports: Wound (posterior neck) Neurological: Reports: No Symptoms Psychiatric: Reports: No Symptoms Hematologic/Lymphatic: Reports: No Symptoms Immunologic: Reports: No Symptoms ED EXAM, SKIN/RASH Exam: See Below Exam Limited By: No Limitations General Appearance: Alert, Obese Eye Exam: Bilateral Eye: PERRL Ears: Normal External Exam Nose: Normal Inspection Throat/Mouth: Normal Inspection Head: Atraumatic Neck: Normal Inspection, Other (recent surgery posteriorly) Respiratory/Chest: No Respiratory Distress, Lungs Clear Cardiovascular: Normal Peripheral Pulses, Regular Rate, Rhythm GI/Abdominal: Normal Bowel Sounds Back Exam: Normal Inspection Extremities: Normal Inspection Neurological: Alert, Oriented, CN II-XII Intact Psychiatric: Normal Affect Skin: Wound/Incision (partial wound dehiscence w/ [address] from last week. No sign of infection. no drainage) Location, Skin: Neck (posterior) Lymphatic: No Adenopathy Course - Vital Signs Last Recorded V/S: Last Vital Signs Temp 36.6 C 07/25/17 14:32 Pulse 84 07/25/17 14:32 Resp 16 07/25/17 14:32 BP 120/74 07/25/17 14:32 Pulse Ox 97 07/25/17 14:32 Departure - Departure Time of Disposition: 14:57 Disposition: Home, Self-Care 01 Condition: Good Clinical Impression: Postoperative wound dehiscence Qualifiers: Encounter type: initial encounter Qualified Code(s): T81.31XA - Disruption of external operation (surgical) wound, not elsewhere classified, initial encounter - Discharge Information Forms: ED Department Discharge Additional Instructions: Leave Dressing and cervical collar in place until seen by your Surgeon Wednesday @ 11AM
[2017-07-25] MEDS ORDERED: Mupirocin Oint 22 GM Tube TOP ONE (14:51)
== END 2017-07-25 15:10 | disposition home or self-care (01) ==
LOC: DL.ED 14:17
DX: T81.31XA Disruption of external operation (surgical) wound, not elsewhere classified, initial encounter (principal); I10 Essential (primary) hypertension; E78.00 Pure hypercholesterolemia, unspecified; E11.42 Type 2 diabetes mellitus with diabetic polyneuropathy; Z90.49 Acquired absence of other specified parts of digestive tract; Z96.649 Presence of unspecified artificial hip joint; Z87.891 Personal history of nicotine dependence; Z79.4 Long term (current) use of insulin; Z79.82 Long term (current) use of aspirin; Z79.899 Other long term (current) drug therapy
CPT/HCPCS: 99283; A9270

== ENCOUNTER 2017-11-26 11:45 | Inpatient (IN) | payer OTHER ==
--- NOTE | 2017-11-26 12:15 | EDM.PDOC ---
ED HPI GENERAL MEDICAL PROBLEM - General Chief Complaint: Cardiovascular Problem Stated Complaint: [id number] VOMMITTING AND SHAKING HAS HIGH BP DIABETI Time Seen by Provider: 11/26/17 12:15 Source of Information: Reports: Patient, Family, Old Records, RN, RN Notes Reviewed History Limitations: Reports: No Limitations - History of Present Illness INITIAL COMMENTS - FREE TEXT/NARRATIVE: Arrives from home by POV with c/o waking this morning with fevers, cold sweats, cough, generalized weakness, nausea, loss of appetite and gen. upper abdominal pain. He denies chest pain, sputum production with cough, chest pain, edema, orthopnea, vomiting, constipation, diarrhea, or black/dark/bloody, or melanotic stools. Pt admits to feeling short of breath. Onset: Today, Sudden Duration: Constant, Getting Worse Location: Reports: Generalized Quality: Reports: Ache Severity: Moderate Improves with: Reports: None Worsens with: Reports: None Associated Symptoms: Reports: No Other Symptoms Treatments [employer] ASSISTANT: Reports: Acetaminophen - Related Data Allergies Allergy/AdvReac Type Severity Reaction Status Date / Time No Known Allergies Allergy Verified 07/12/17 21:58 Home Meds: Home Meds Acetaminophen [Tylenol] 650 mg PO TID 04/11/17 [History] Aspirin [Ecotrin] 81 mg PO DAILY 04/11/17 [History] Gabapentin [Neurontin] 200 mg PO BID 04/11/17 [History] Insulin Aspart [NovoLOG] 15 unit SUBCUT TIDAC 04/11/17 [History] Insulin Detemir [Levemir] 40 unit SQ BID 04/11/17 [History] Metoprolol Tartrate 50 mg PO BID 07/25/17 [History] NIFEdipine [Nifedipine ER] 30 mg PO DAILY 07/25/17 [History] oxyCODONE HCl/Acetaminophen [oxyCODONE-Acetaminophen 5-325] 1 tab PO Q6H PRN [History] Past Medical History HEENT History: Reports: Impaired Vision Other HEENT History: wears glasses Cardiovascular History: Reports: High Cholesterol, Hypertension Respiratory History: Reports: Intubation, Previous Genitourinary History: Reports: Chronic Renal Insuffiency (CKD Stage 3), Diabetic Nephropathy Musculoskeletal History: Reports: Osteoarthritis Neurological History: Reports: CVA (hemorrhagic), Neuropathy, Diabetic Endocrine/Metabolic History: Reports: Diabetes, Type II, Obesity/BMI 30+ - Infectious Disease History Infectious Disease History: Reports: None - Past Surgical History GI Surgical History: Reports: Cholecystectomy Musculoskeletal Surgical History: Reports: Hip Replacement Social & Family History - Family History Family Medical History: Noncontributory - Tobacco Use Smoking Status *Q: Former Smoker Tobacco Use Within Last Twelve Months: Cigarettes Years of Tobacco use: 20 Packs/Tins Daily: 1.5 Used Tobacco, but Quit: Yes Month Tobacco Last Used: dec Second Hand Smoke Exposure: No - Caffeine Use Caffeine Use: Reports: None - Recreational Drug Use Recreational Drug Use: No - Living Situation & Occupation Living situation: Reports: with Family Occupation: Disabled ED ROS GENERAL - Review of Systems Review Of Systems: ROS reveals no pertinent complaints other than HPI. ED EXAM, GENERAL - Physical Exam Exam: See Below Exam Limited By: No Limitations General Appearance: Alert, Obese, Other (ill but non-toxic appearing) Eye Exam: Bilateral Eye: Normal Inspection Ears: Normal External Exam, Hearing Grossly Normal Nose: Normal Inspection, Normal Mucosa, No Blood Throat/Mouth: Normal Lips, Normal Gums, Normal Voice, No Airway Compromise, Other (mild pharyngeal erythema) Head: Atraumatic, Normocephalic Neck: Normal Inspection, Supple, Non-Tender, Full Range of Motion, Other (no nuchal rigidity). No: Lymphadenopathy (L), Lymphadenopathy (R) Respiratory/Chest: No Respiratory Distress, No Accessory Muscle Use, Chest Non- Tender, Decreased Breath Sounds, Crackles, Wheezing (mild scattered wheezes), Other (course breath sounds, occasional dry cough). No: Rales, Rhonchi Cardiovascular: Regular Rate, Rhythm, Tachycardia GI/Abdominal: Normal Bowel Sounds, Soft, No Distention, No Abnormal Bruit, Tender (mild epigastric tenderness). No: Guarding, Rigid, Rebound (Male) Exam: Deferred Rectal (Males) Exam: Deferred Back Exam: Normal Inspection Extremities: Normal Inspection, Other (chronic Rt shoulder tenderness with chronically decreased ROM) Neurological: Alert, Oriented, CN II-XII Intact, Normal Cognition, No Motor/ Sensory Deficits, Other (generalized non-focal weakness) Psychiatric: Normal Mood Skin Exam: Warm, Dry, Intact, Normal Color, No Rash EKG INTERPRETATION EKG Date: 11/26/17 Time: 12:05 Rhythm: Other (Sinus Tach) Rate (Beats/Min): 100 [place]: Normal P-Wave: Present QRS: Normal ST-T: Normal QT: Normal Comparison: NA - No Prior EKG EKG Interpretation Comments: No acute ischemic changes. Course - Vital Signs Last Recorded V/S: Last Vital Signs Temp 37.8 C 11/26/17 11:57 Pulse 90 11/26/17 12:50 Resp 20 11/26/17 11:57 BP 161/83 H 11/26/17 11:57 Pulse Ox 100 11/26/17 11:57 - Orders/Labs/Meds Orders: Active Orders 24 hr Category Date Time Status Blood Glucose Check, Bedside [] ONETIME Care 11/26/17 12:17 Active EKG 12 Lead [EKG Documentation Completion] [] STAT Care 11/26/17 12:15 Active Peripheral IV Care [RC] . DIRECTED Care 11/26/17 12:17 Active RT Aerosol Therapy [] ASDIRECTED Care 11/26/17 12:40 Active CULTURE BLOOD [] Stat Lab 11/26/17 12:05 Received CULTURE BLOOD [BC] Stat Lab 11/26/17 12:50 Received Levofloxacin/Dextrose 5%-Water [Levaquin in D5W 750 MG/ Med 11/26/17 12:37 Active 150 ML] 750 mg Premix Bag 1 bag IV ONETIME Sodium Chloride 0.9% [Normal Saline] 1,000 ml Med 11/26/17 12:36 Active IV .BOLUS Sodium Chloride 0.9% [Saline Flush] Med 11/26/17 12:16 Active 10 ml FLUSH ASDIRECTED PRN Blood Culture x2 Reflex Set [OM.PC] Stat Oth 11/26/17 12:16 Ordered Peripheral IV Insertion Adult [OM.PC] Stat Oth 11/26/17 12:15 Ordered Medication Orders Sodium Chloride (Normal Saline) 1,000 mls @ 999 mls/hr IV .BOLUS ONE Stop: 11/26/17 13:36 Last Admin: 11/26/17 12:47 Dose: 999 mls/hr Levofloxacin/Dextrose 750 mg/ (Premix) 150 mls @ 100 mls/hr IV ONETIME ONE Stop: 11/26/17 14:06 Last Admin: 11/26/17 12:47 Dose: 100 mls/hr Sodium Chloride (Saline Flush) 10 ml FLUSH ASDIRECTED PRN PRN Reason: Keep Vein Open Last Admin: 11/26/17 12:47 Dose: 10 ml Labs: Laboratory Tests 11/26/17 11/26/17 11/26/17 Range/Units 12:05 12:05 12:05 WBC 25.5 H* (5.0-10.0) 10^3/uL RBC 5.76 (4.6-6.2) 10^6/uL Hgb 14.9 D (14.0-18.0) g/dL Hct 46.3 (40.0-54.0) % MCV 80.4 (80-100) fL MCH 25.9 L (27.0-34.0) pg MCHC 32.2 L (33.0-35.0) g/dL Plt Count 200 (150-450) 10^3/uL Neut % (Auto) 92.5 H (42.2-75.2) % Lymph % (Auto) 3.2 L (20.5-50.1) % Lake % (Auto) 4.2 (2-8) % Eos % (Auto) 0.0 L (1.0-3.0) % Baso % (Auto) 0.1 (0.0-1.0) % Add Manual Diff Yes Neutrophils % (Manual) 73 (42-75) % Band Neutrophils % 18 % Lymphocytes % (Manual) 6 L (20-50) % Monocytes % (Manual) 3 (2-8) % Sodium 133 L (135-145) mmol/L Potassium 4.9 (3.6-5.0) mmol/L Chloride 103 (101-111) mmol/L Carbon Dioxide 23.0 (21.0-31.0) mmol/L Anion Gap 11.9 BUN 41 H (7-18) mg/dL Creatinine 2.1 H (0.6-1.3) mg/dL Est Cr Clr Drug Dosing 38.81 mL/min Estimated GFR (MDRD) 33 BUN/Creatinine Ratio 19.52 Glucose 208 H (74-105) mg/dL POC Glucose (70-105) mg/dl Lactic Acid (0.5-2.2) mmol/L Calcium 8.1 L (8.4-10.2) mg/dl Total Bilirubin 0.6 (0.2-1.0) mg/dL AST 75 H (10-42) IU/L ALT 74 H (10-60) IU/L Alkaline Phosphatase 136 H (42-121) IU/L Creatine Kinase 140 (26-174) IU/L Creatine Kinase Index 2.5 H (0-2.4) % CK-MB (CK-2) 3.50 (0.4-4.7) ng/mL Troponin I 0.02 (0.00-0.02) ng/ml B-Natriuretic Peptide 118 H (0-100) pg/ml Total Protein 7.6 (6.7-8.2) g/dl Albumin 3.2 (3.2-5.5) g/dl Globulin 4.4 Albumin/Globulin Ratio 0.73 Amylase 48 (28-100) U/L Lipase 16 L (22-51) U/L Urine Color (YELLOW) Urine Appearance (CLEAR) Urine pH (5.0-9.0) Ur Specific [place] (1.005-1.030) Urine Protein (NEGATIVE) Urine Glucose (UA) (NEGATIVE) Urine Ketones (NEGATIVE) Urine Occult Blood (NEGATIVE) Urine Nitrite (NEGATIVE) Urine Bilirubin (NEGATIVE) Urine Urobilinogen (0.2-1.0) mg/dL Ur Leukocyte Esterase (NEGATIVE) Urine RBC /HPF Urine WBC (0-5/HPF) /HPF Ur Epithelial Cells /HPF Urine Bacteria (0-FEW/HPF) /HPF Fine Granular Casts (0/LPF) /LPF Urine Mucus /LPF 11/26/17 11/26/17 11/26/17 Range/Units 12:05 12:10 12:31 WBC (5.0-10.0) 10^3/uL RBC (4.6-6.2) 10^6/uL Hgb (14.0-18.0) g/dL Hct (40.0-54.0) % MCV (80-100) fL MCH (27.0-34.0) pg MCHC (33.0-35.0) g/dL Plt Count (150-450) 10^3/uL Neut % (Auto) (42.2-75.2) % Lymph % (Auto) (20.5-50.1) % Lake % (Auto) (2-8) % Eos % (Auto) (1.0-3.0) % Baso % (Auto) (0.0-1.0) % Add Manual Diff Neutrophils % (Manual) (42-75) % Band Neutrophils % % Lymphocytes % (Manual) (20-50) % Monocytes % (Manual) (2-8) % Sodium (135-145) mmol/L Potassium (3.6-5.0) mmol/L Chloride (101-111) mmol/L Carbon Dioxide (21.0-31.0) mmol/L Anion Gap BUN (7-18) mg/dL Creatinine (0.6-1.3) mg/dL Est Cr Clr Drug Dosing mL/min Estimated GFR (MDRD) BUN/Creatinine Ratio Glucose (74-105) mg/dL POC Glucose 183 H (70-105) mg/dl Lactic Acid 2.1 (0.5-2.2) mmol/L Calcium (8.4-10.2) mg/dl Total Bilirubin (0.2-1.0) mg/dL AST (10-42) IU/L ALT (10-60) IU/L Alkaline Phosphatase (42-121) IU/L Creatine Kinase (26-174) IU/L Creatine Kinase Index (0-2.4) % CK-MB (CK-2) (0.4-4.7) ng/mL Troponin I (0.00-0.02) ng/ml B-Natriuretic Peptide (0-100) pg/ml Total Protein (6.7-8.2) g/dl Albumin (3.2-5.5) g/dl Globulin Albumin/Globulin Ratio Amylase (28-100) U/L Lipase (22-51) U/L Urine Color Yellow (YELLOW) Urine Appearance Slightly cloudy (CLEAR) Urine pH 5.5 (5.0-9.0) Ur Specific [place] 1.020 (1.005-1.030) Urine Protein >=300 H (NEGATIVE) Urine Glucose (UA) Negative (NEGATIVE) Urine Ketones Negative (NEGATIVE) Urine Occult Blood Moderate H (NEGATIVE) Urine Nitrite Negative (NEGATIVE) Urine Bilirubin Negative (NEGATIVE) Urine Urobilinogen 0.2 (0.2-1.0) mg/dL Ur Leukocyte Esterase Negative (NEGATIVE) Urine RBC 5-10 H /HPF Urine WBC 0-5 (0-5/HPF) /HPF Ur Epithelial Cells Few /HPF Urine Bacteria Moderate H (0-FEW/HPF) /HPF Fine Granular Casts Few H (0/LPF) /LPF Urine Mucus Few H /LPF Meds: Medications Generic Name Dose Route Start Last Admin Trade Name Freq PRN Reason Stop Dose Admin Sodium Chloride 1,000 mls @ 999 mls/hr 11/26/17 12:36 11/26/17 12:47 Normal Saline IV 11/26/17 13:36 999 mls/hr .BOLUS ONE Administration Levofloxacin/Dextrose 750 mg/ 150 mls @ 100 mls/hr 11/26/17 12:37 11/26/17 12 :47 Premix IV 11/26/17 14:06 100 mls/hr ONETIME ONE Administration Sodium Chloride 10 ml 11/26/17 12:16 11/26/17 12:47 Saline Flush FLUSH 10 ml ASDIRECTED PRN Administration Keep Vein Open Discontinued Medications Generic Name Dose Route Start Last Admin Trade Name Freq PRN Reason Stop Dose Admin Albuterol/Ipratropium 3 ml 11/26/17 12:40 11/26/17 12:47 Duoneb 3.0-0.5 Mg/3 Ml NEB 11/26/17 12:41 3 ml ONETIME ONE Administration Ondansetron HCl 4 mg 11/26/17 12:36 11/26/17 12:46 Zofran IV 11/26/17 12:37 4 mg ONETIME ONE Administration Penicillin G Procaine/Benzathine 1.2 millunits 11/26/17 12:55 11/26/17 13:16 Bicillin C-R 600/600 IM 11/26/17 12:56 1.2 millunits ONETIME ONE Administration - Radiology Interpretation Free Text/Narrative:: CONFIDENTIALITY STATEMENT This report is intended only for use by the referring physician, and only in accordance with law. If you received this in error, call [phone]. Page 1 of 1 EXAM: XR Chest, 1 View CLINICAL HISTORY: 57 years old, male; Chest pain; Fever, diaphoretic TECHNIQUE: Frontal view of the chest. COMPARISON: XR CHEST 06/04/2017 FINDINGS: Lungs: There is right basilar airspace disease which could be due to pneumonia, aspiration pneumonitis, or atelectasis. Pleural space: No pleural effusion or pneumothorax. Heart: The heart is not enlarged. Mediastinum: The mediastinal contours are normal. Bones/joints: No acute osseous abnormality. Upper abdomen: The right hemidiaphragm is elevated, present before. IMPRESSION: Right basilar airspace disease. Thank you for allowing us to participate in the care of your patient. Dictated and Authenticated by: Markus Carlson MD 11/26/2017 1:08 PM Central Time ([place] & [place]) Departure - Departure Time of Disposition: 13:21 (admitted to Dr. Garcia) Disposition: Admitted As Inpatient 66 Condition: Fair Clinical Impression: Strep pharyngitis Pneumonia Qualifiers: Pneumonia type: due to unspecified organism Laterality: right Lung location: lower lobe of lung Qualified Code(s): J18.1 - Lobar pneumonia, unspecified organism Forms: ED Department Discharge - My Orders Last 24 Hours: My Active Orders 11/26/17 12:05 CULTURE BLOOD [BC] Stat 11/26/17 12:15 EKG 12 Lead [EKG Documentation Completion] [RC] STAT Peripheral IV Insertion Adult [OM.PC] Stat 11/26/17 12:16 Sodium Chloride 0.9% [Saline Flush] 10 ml FLUSH ASDIRECTED PRN Blood Culture x2 Reflex Set [OM.PC] Stat 11/26/17 12:17 Blood Glucose Check, Bedside [RC] ONETIME Peripheral IV Care [RC] . DIRECTED 11/26/17 12:36 Sodium Chloride 0.9% [Normal Saline] 1,000 ml IV .BOLUS 11/26/17 12:37 Levofloxacin/Dextrose 5%-Water [Levaquin in D5W 750 MG/150 ML] 750 mg Premix Bag 1 bag IV ONETIME 11/26/17 12:40 RT Aerosol Therapy [RC] ASDIRECTED 11/26/17 12:50 CULTURE BLOOD [BC] Stat - Assessment/Plan Last 24 Hours: My Active Orders 11/26/17 12:05 CULTURE BLOOD [BC] Stat 11/26/17 12:15 EKG 12 Lead [EKG Documentation Completion] [RC] STAT Peripheral IV Insertion Adult [OM.PC] Stat 11/26/17 12:16 Sodium Chloride 0.9% [Saline Flush] 10 ml FLUSH ASDIRECTED PRN Blood Culture x2 Reflex Set [OM.PC] Stat 11/26/17 12:17 Blood Glucose Check, Bedside [RC] ONETIME Peripheral IV Care [RC] . DIRECTED 11/26/17 12:36 Sodium Chloride 0.9% [Normal Saline] 1,000 ml IV .BOLUS 11/26/17 12:37 Levofloxacin/Dextrose 5%-Water [Levaquin in D5W 750 MG/150 ML] 750 mg Premix Bag 1 bag IV ONETIME 11/26/17 12:40 RT Aerosol Therapy [RC] ASDIRECTED 11/26/17 12:50 CULTURE BLOOD [BC] Stat
[2017-11-26] MEDS ORDERED: Sodium Chloride 0.9% 10 ML Syringe FLUSH PRN ×2 (12:16→15:32)
[2017-11-26] MEDS ORDERED: Sodium Chloride 0.9% 1,000 ML IV ONE (12:36)
[2017-11-26] MEDS ORDERED: Ondansetron 4 MG/2 ML SDV IV ONE (12:36)
[2017-11-26] MEDS ORDERED: Levofloxacin/Dextrose 5%-Water 750 MG in Premix Bag 1 BAG IV ONE (12:37)
[2017-11-26] MEDS ORDERED: Albuterol/Ipratropium 3.0-0.5 MG/3 ML Neb Soln NEB ONE (12:40)
[2017-11-26] MEDS ORDERED: Penicillin G Benzathine/Procaine 600-600 1.2 Millunits/2 ML Syringe IM ONE (12:55)
[2017-11-26] MEDS ORDERED: Docusate Sodium 100 MG Cap PO PRN (15:32)
[2017-11-26] MEDS ORDERED: Ondansetron 4 MG/2 ML SDV IVPUSH PRN (15:32)
[2017-11-26] MEDS ORDERED: cefTRIAXone 1,000 MG in Sodium Chloride 0.9% 50 ML IV SCH (15:45)
[2017-11-26] MEDS: Sodium Chloride 0.9% 1,000 ML IV SCH (15:59)
--- NOTE | 2017-11-26 16:00 | PCM.HP ---
H&P History of Present Illness - General Date of Service: 11/26/17 Admit Problem/Dx: Admission Diagnosis/Problem Admission Diagnosis/Problem Right lower lobe pneumonia Source of Information: Patient History Limitations: Reports: No Limitations - History of Present Illness Initial Comments - Free Text/Narative: 57 yo M with PMH of hypertension, Type 2 DM on insulin, recent cerebellar hemorrhage s/p neurosurgery, recent meningitis s/p treatment who comes to the ED with one day history of cough, shortness of breath and pleuritic chest pain. Patient reports onset of symptoms yesterday evening. Preceding these symptoms, he had a recent ear infection one week ago which is getting better, treated with ear drops by his PCP. Cough is non-productive of phlegm. Shortness of breath is not related to exertion. He's not sure if he had a fever, but no chills or rigors. Reports two episodes of vomiting. No dysuria, no abdominal pain. Onset of Symptoms: Reports: Sudden Symptom Onset Date: 11/25/17 Duration of Symptoms: Reports: Day(s): (1) Location: Reports: Chest Severity: Moderate Improves with: Reports: None Worsens with: Reports: None Associated Symptoms: Reports: Cough, Nausea/Vomiting - Related Data Allergies/Adverse Reactions: Allergies Allergy/AdvReac Type Severity Reaction Status Date / Time No Known Allergies Allergy Verified 11/26/17 14:51 Home Medications: Home Meds Acetaminophen [Tylenol] 650 mg PO TID PRN 04/11/17 [History] Aspirin [Ecotrin] 81 mg PO DAILY 04/11/17 [History] Gabapentin [Neurontin] 200 mg PO BID 04/11/17 [History] Insulin Aspart [NovoLOG] 18 unit SUBCUT BIDAC 04/11/17 [History] Insulin Detemir [Levemir] 34 unit SQ BID 04/11/17 [History] Metoprolol Tartrate 50 mg PO BID 07/25/17 [History] NIFEdipine [Nifedipine ER] 30 mg PO .NOON 07/25/17 [History] Omeprazole 20 mg PO DAILY 11/26/17 [History] atorvaSTATin Calcium [Atorvastatin Calcium] 40 mg PO .NOON 11/26/17 [History] Past Medical History HEENT History: Reports: Impaired Vision Other HEENT History: wears glasses Cardiovascular History: Reports: High Cholesterol, Hypertension Respiratory History: Reports: Intubation, Previous Genitourinary History: Reports: Chronic Renal Insuffiency, Diabetic Nephropathy Musculoskeletal History: Reports: Osteoarthritis Neurological History: Reports: CVA, Neuropathy, Diabetic Endocrine/Metabolic History: Reports: Diabetes, Type II, Obesity/BMI 30+ - Infectious Disease History Infectious Disease History: Reports: None - Past Surgical History GI Surgical History: Reports: Cholecystectomy Musculoskeletal Surgical History: Reports: Hip Replacement Social & Family History - Family History Family Medical History: Noncontributory - Tobacco Use Smoking Status *Q: Never Smoker Years of Tobacco use: 20 Packs/Tins Daily: 1.5 Used Tobacco, but Quit: Yes Month Tobacco Last Used: dec Second Hand Smoke Exposure: No - Caffeine Use Caffeine Use: Reports: None - Recreational Drug Use Recreational Drug Use: No - Living Situation & Occupation Living situation: Reports: with Family Occupation: Disabled H&P Review of Systems - Review of Systems: Review Of Systems: See Below HEENT: Reports: No Symptoms Pulmonary: Reports: Shortness of Breath, Pleuritic Chest Pain, Cough Cardiovascular: Reports: No Symptoms, Chest Pain Gastrointestinal: Reports: Vomiting Genitourinary: Reports: No Symptoms Musculoskeletal: Reports: No Symptoms Skin: Reports: No Symptoms Exam - Exam Exam: See Below - Vital Signs Vital Signs: Last Vital Signs Temp 37.5 C 11/26/17 15:00 Pulse 91 11/26/17 15:00 Resp 24 H 11/26/17 15:00 BP 154/69 H 11/26/17 15:00 Pulse Ox 96 11/26/17 15:34 Weight: 157.397 kg - Exam General: Alert, Oriented HEENT: Conjunctiva Clear Neck: Supple, Trachea Midline Lungs: Crackles, Other (right lower lobe crackles) Cardiovascular: Regular Rate, Regular Rhythm GI/Abdominal Exam: Normal Bowel Sounds Extremities: Normal Inspection, Normal Range of Motion, Non-Tender, No Pedal Edema, Normal Capillary Refill Neurological: Cranial Nerves Intact, Reflexes Equal Bilateral Neuro Extensive - Mental Status: Alert, Oriented x3, Normal Mood/Affect, Normal Cognition Psychiatric: Alert, Normal Affect, Normal Mood - Patient Data Result Diagrams: 11/26/17 12:05 11/26/17 12:05 EKG INTERPRETATION Rhythm: NSR *Q Meaningful Use (ADM) - VTE *Q VTE Criteria *Q: - Stroke *Q Stroke Criteria *Q: - AMI *Q AMI Criteria *Q: - Problem List (1) JONNY (acute kidney injury) SNOMED Code(s): 85529289 ICD Code: N17.9 - ACUTE KIDNEY FAILURE, UNSPECIFIED Status: Acute Current Visit: Yes (2) Pneumonia SNOMED Code(s): 151529199 ICD Code: J18.9 - PNEUMONIA, UNSPECIFIED ORGANISM Status: Acute Current Visit: Yes Qualifiers: Pneumonia type: due to unspecified organism Laterality: right Lung location: lower lobe of lung Qualified Code(s): J18.1 - Lobar pneumonia, unspecified organism (3) Hypertension SNOMED Code(s): 49733051 ICD Code: I10 - ESSENTIAL (PRIMARY) HYPERTENSION Status: Acute Current Visit: Yes (4) Sepsis SNOMED Code(s): 05742080 ICD Code: A41.9 - SEPSIS, UNSPECIFIED ORGANISM Status: Acute Current Visit: Yes (5) Hyperglycemia due to type 2 diabetes mellitus SNOMED Code(s): 592558826422382 ICD Code: E11.65 - TYPE 2 DIABETES MELLITUS WITH HYPERGLYCEMIA Status: Acute Current Visit: No Qualifiers: Diabetes mellitus residential insulin use: unspecified residential insulin use status Qualified Code(s): E11.65 - Type 2 diabetes mellitus with hyperglycemia Problem List Initiated/Reviewed/Updated: Yes Orders Last 24hrs: Active Orders 24 hr Category Date Time Status Patient Status [ADT] Routine ADT 11/26/17 15:33 Ordered Ambulate [RC] ASDIRECTED Care 11/26/17 15:32 Ordered Blood Glucose Check, Bedside [RC] TIDMEALS Care 11/26/17 15:32 Ordered Flutter Valve Therapy [RT Chest Physiotherapy] [RC] Care 11/26/17 15:46 Ordered ASDIRECTED Intake and Output [RC] QSHIFT Care 11/26/17 15:34 Ordered May Shower [RC] ASDIRECTED Care 11/26/17 15:32 Ordered Oxygen Therapy [RC] PRN Care 11/26/17 15:33 Ordered Peripheral IV Care [RC] . DIRECTED Care 11/26/17 15:37 Ordered Pulse Oximetry [RC] PRN Care 11/26/17 15:34 Ordered RT Incentive Spirometry [RC] ASDIRECTED Care 11/26/17 15:46 Ordered Up With Assistance [RC] ASDIRECTED Care 11/26/17 15:32 Ordered Up ad Tania [RC] ASDIRECTED Care 11/26/17 15:32 Ordered Up to Chair [RC] ASDIRECTED Care 11/26/17 15:32 Ordered VTE/DVT Education [RC] PER UNIT ROUTINE Care 11/26/17 15:33 Ordered Vital Signs [RC] Q4H Care 11/26/17 15:33 Ordered Consistent Carbohydrate Diet [DIET] Diet 11/26/17 Dinner Ordered BASIC METABOLIC PANEL,BMP [CHEM] AM Lab 11/27/17 05:11 Ordered CBC WITH AUTO DIFF [HEME] AM Lab 11/27/17 05:11 Ordered HEPATIC FUNCTION PANEL,HFP [CHEM] AM Lab 11/27/17 05:11 Ordered MAGNESIUM [CHEM] AM Lab 11/27/17 05:11 Ordered PHOSPHORUS [CHEM] AM Lab 11/27/17 05:11 Ordered Acetaminophen [Tylenol] Med 11/26/17 15:32 Ordered 650 mg PO Q4H PRN Aspirin [Halfprin] Med 11/27/17 09:00 Ordered 81 mg PO DAILY Azithromycin [Zithromax] Med 11/26/17 15:45 Ordered 500 mg PO DAILY Docusate Sodium [Colace] Med 11/26/17 15:32 Ordered 100 mg PO BID PRN Gabapentin [Neurontin] Med 11/26/17 21:00 Ordered 200 mg PO BID Heparin Sodium Med 11/26/17 22:00 Ordered 5,000 units SUBCUT Q8HR Insulin Aspart [NovoLOG] Med 11/26/17 17:00 Ordered 18 unit SUBCUT BIDAC Insulin Aspart [NovoLOG] Med 11/26/17 18:00 Ordered See Protocol SUBCUT TIDMEALS Insulin Detemir Med 11/26/17 21:00 Ordered 34 unit SQ BID Metoprolol Tartrate [Lopressor] Med 11/26/17 21:00 Ordered 50 mg PO BID NIFEdipine [Nifedipine ER] Med 11/26/17 15:45 Ordered 30 mg PO .NOON Omeprazole [Omeprazole] Med 11/27/17 09:00 Ordered 20 mg PO DAILY Ondansetron [Zofran] Med 11/26/17 15:32 Ordered 4 mg IVPUSH Q6H PRN Sodium Chloride 0.9% @ 125 MLS/HR (1000ml) Med 11/26/17 15:45 Ordered Sodium Chloride 0.9% [Normal Saline] 1,000 ml IV ASDIRECTED Sodium Chloride 0.9% [Saline Flush] Med 11/26/17 15:32 Ordered 10 ml FLUSH ASDIRECTED PRN atorvaSTATin Calcium [Atorvastatin Calcium] Med 11/26/17 15:45 Ordered 40 mg PO .NOON cefTRIAXone [Rocephin] 1,000 mg Med 11/26/17 15:45 Ordered Sodium Chloride 0.9% [Normal Saline] 50 ml IV Q24H Peripheral IV Insertion Adult [OM.PC] Routine Oth 11/26/17 15:32 Ordered Saline Lock Insert [OM.PC] Routine Oth 11/26/17 15:32 Ordered Resuscitation Status Routine Resus Stat 11/26/17 15:32 Ordered Medication Orders Acetaminophen (Tylenol) 650 mg PO Q4H PRN PRN Reason: Fever Aspirin (Halfprin) 81 mg PO DAILY DL Atorvastatin Calcium (Lipitor) 40 mg PO 1200 DL Azithromycin (Zithromax) 500 mg PO DAILY DL Docusate Sodium (Colace) 100 mg PO BID PRN PRN Reason: Constipation Gabapentin (Neurontin) 200 mg PO BID DL Heparin Sodium (Porcine) (Heparin Sodium) 5,000 units SUBCUT Q8HR DL Sodium Chloride (Normal Saline) 1,000 mls @ 125 mls/hr IV ASDIRECTED DL Ceftriaxone Sodium 1,000 mg/ (Sodium Chloride) 50 mls @ 100 mls/hr IV Q24H DL Insulin Aspart (Novolog) 18 unit SUBCUT BIDAC DL Insulin Aspart (Novolog) 0 unit SUBCUT TIDMEALS DL PRN Reason: Protocol Insulin Detemir (Levemir) 34 unit SUBCUT BID DL Metoprolol Tartrate (Lopressor) 50 mg PO BID DL Nifedipine (Procardia Xl) 30 mg PO 1200 DL Omeprazole (Omeprazole) 20 mg PO ACBRK DL Ondansetron HCl (Zofran) 4 mg IVPUSH Q6H PRN PRN Reason: Nausea/Vomiting Sodium Chloride (Saline Flush) 10 ml FLUSH ASDIRECTED PRN PRN Reason: Keep Vein Open Last Admin: 11/26/17 12:47 Dose: 10 ml Sodium Chloride (Saline Flush) 10 ml FLUSH ASDIRECTED PRN PRN Reason: Keep Vein Open Assessment/Plan Comment:: 57 yo M with PMH of hypertension, DM2 presenting with cough, shortness of breath. # Right lower lobe pneumonia, Sepsis POA CXR shows findings of RLL infiltrate, WBC markedly increased, JONNY Follow up blood cultures, if sputum produced, check sputum culture IV ceftriaxone + azithromycin Oxygen therapy to keep sats > 92% # JONNY likely 2/2 sepsis IV fluid hydration Trend Cr daily Avoid nephrotoxics # Hypertension SBP elevated continue nifedipine, home medication # DM2 Accuchecks, Insulin sliding scale Continue home insulin regimen Carb controlled diet # DVT ppx SC heparin # Full code
[2017-11-26] MEDS: cefTRIAXone 1 GM Vial IVPUSH SCH (16:13)
[2017-11-26] MEDS: NIFEdipine 30 MG Tab.ER PO SCH (16:14)
[2017-11-26] MEDS: Azithromycin 250 MG Tab PO SCH (16:14)
[2017-11-26] MEDS: atorvaSTATin 20 MG Tab PO SCH (16:14)
[2017-11-26] MEDS: Acetaminophen 325 MG Tab PO PRN ×2 (16:21→19:59)
[2017-11-26] MEDS ORDERED: Insulin Aspart 100 Units/ML 3 ML Pen SUBCUT SCH (17:00)
[2017-11-26] MEDS: Insulin Aspart 100 Units/ML 3 ML Pen SUBCUT SCH (17:17)
[2017-11-26] MEDS: Metoprolol Tartrate 50 MG Tab PO SCH (21:33)
[2017-11-26] MEDS: Gabapentin 100 MG Cap PO SCH (21:34)
[2017-11-26] MEDS: Insulin Detemir 100 Units/ML 3 ML Pen SUBCUT SCH (21:34)
[2017-11-26] MEDS: Heparin Sodium 5,000 Units/ML Vial SUBCUT SCH (21:35)
[2017-11-27] MEDS: Sodium Chloride 0.9% 1,000 ML IV SCH ×3 (00:04→15:54)
[2017-11-27] MEDS: Acetaminophen 325 MG Tab PO PRN ×2 (00:06→18:05)
[2017-11-27] MEDS: Omeprazole 20 MG Cap.CR PO SCH (06:09)
[2017-11-27] MEDS: Heparin Sodium 5,000 Units/ML Vial SUBCUT SCH ×3 (06:10→21:04)
[2017-11-27] MEDS: Gabapentin 100 MG Cap PO SCH ×2 (08:15→20:51)
[2017-11-27] MEDS: Aspirin 81 MG Tab.EC PO SCH (08:16)
[2017-11-27] MEDS: Azithromycin 250 MG Tab PO SCH (08:16)
[2017-11-27] MEDS: Insulin Aspart 100 Units/ML 3 ML Pen SUBCUT SCH ×5 (08:16→18:04)
[2017-11-27] MEDS: Metoprolol Tartrate 50 MG Tab PO SCH ×2 (08:16→20:50)
[2017-11-27] MEDS: Insulin Detemir 100 Units/ML 3 ML Pen SUBCUT SCH ×2 (08:17→20:59)
--- NOTE | 2017-11-27 10:37 | PCM.PN ---
- General Info Date of Service: 11/27/17 Admission Dx/Problem (Free Text): Admission Diagnosis/Problem Admission Diagnosis/Problem Right lower lobe pneumonia Subjective Update: 57 yo M admitted with cough, sob found to have RLL pneumonia. Patient seen and examined by me. Sitting in chair SOB and cough has improved. - Review of Systems General: Reports: No Symptoms HEENT: Reports: No Symptoms Pulmonary: Reports: No Symptoms, Shortness of Breath, Cough, Other (improved cough and SOB) Cardiovascular: Reports: No Symptoms Gastrointestinal: Reports: No Symptoms Genitourinary: Reports: No Symptoms Musculoskeletal: Reports: No Symptoms - Patient Data Vitals - Most Recent: Last Vital Signs Temp 36.5 C 11/27/17 08:10 Pulse 91 11/27/17 08:16 Resp 20 11/27/17 08:10 BP 113/70 11/27/17 08:16 Pulse Ox 96 11/27/17 08:10 Weight - Most Recent: 159.211 kg I&O - Last 24 Hours: Intake & Output 11/26/17 11/27/17 11/27/17 22:59 06:59 14:59 Intake Total 2374 Balance 2374 Lab Results Last 24 Hours: Laboratory Results - last 24 hr 11/26/17 11/27/17 11/27/17 Range/Units 16:32 06:10 06:10 WBC 10.8 H (5.0-10.0) 10^3/uL RBC 4.92 (4.6-6.2) 10^6/uL Hgb 12.7 L D (14.0-18.0) g/dL Hct 40.3 (40.0-54.0) % MCV 81.9 (80-100) fL MCH 25.8 L (27.0-34.0) pg MCHC 31.5 L (33.0-35.0) g/dL Plt Count 149 L (150-450) 10^3/uL Neut % (Auto) 79.9 H (42.2-75.2) % Lymph % (Auto) 11.0 L (20.5-50.1) % Dare % (Auto) 8.9 H (2-8) % Eos % (Auto) 0.0 L (1.0-3.0) % Baso % (Auto) 0.2 (0.0-1.0) % Sodium 133 L (135-145) mmol/L Potassium 4.6 (3.6-5.0) mmol/L Chloride 103 (101-111) mmol/L Carbon Dioxide 23.0 (21.0-31.0) mmol/L Anion Gap 11.6 BUN 46 H (7-18) mg/dL Creatinine 2.5 H (0.6-1.3) mg/dL Est Cr Clr Drug Dosing 33.66 mL/min Estimated GFR (MDRD) 27 Glucose 190 H (74-105) mg/dL POC Glucose 244 H (70-105) mg/dl Calcium 7.5 L (8.4-10.2) mg/dl Phosphorus 3.2 (2.5-4.6) mg/dL Magnesium 1.8 (1.8-2.5) mg/dL Total Bilirubin 0.6 (0.2-1.0) mg/dL Direct Bilirubin 0.2 (0.0-0.2) mg/dL Indirect Bilirubin 0.4 AST 67 H (10-42) IU/L ALT 93 H (10-60) IU/L Alkaline Phosphatase 111 (42-121) IU/L Total Protein 6.3 L (6.7-8.2) g/dl Albumin 2.5 L (3.2-5.5) g/dl Globulin 3.8 Albumin/Globulin Ratio 0.66 03/03/18 Range/Units 07:48 WBC (5.0-10.0) 10^3/uL RBC (4.6-6.2) 10^6/uL Hgb (14.0-18.0) g/dL Hct (40.0-54.0) % MCV (80-100) fL MCH (27.0-34.0) pg MCHC (33.0-35.0) g/dL Plt Count (150-450) 10^3/uL Neut % (Auto) (42.2-75.2) % Lymph % (Auto) (20.5-50.1) % Dare % (Auto) (2-8) % Eos % (Auto) (1.0-3.0) % Baso % (Auto) (0.0-1.0) % Sodium (135-145) mmol/L Potassium (3.6-5.0) mmol/L Chloride (101-111) mmol/L Carbon Dioxide (21.0-31.0) mmol/L Anion Gap BUN (7-18) mg/dL Creatinine (0.6-1.3) mg/dL Est Cr Clr Drug Dosing mL/min Estimated GFR (MDRD) Glucose (74-105) mg/dL POC Glucose 167 H (70-105) mg/dl Calcium (8.4-10.2) mg/dl Phosphorus (2.5-4.6) mg/dL Magnesium (1.8-2.5) mg/dL Total Bilirubin (0.2-1.0) mg/dL Direct Bilirubin (0.0-0.2) mg/dL Indirect Bilirubin AST (10-42) IU/L ALT (10-60) IU/L Alkaline Phosphatase (42-121) IU/L Total Protein (6.7-8.2) g/dl Albumin (3.2-5.5) g/dl Globulin Albumin/Globulin Ratio Med Orders - Current: Current Medications Acetaminophen (Tylenol) 650 mg PO Q4H PRN PRN Reason: Fever Last Admin: 11/27/17 00:06 Dose: 650 mg Aspirin (Halfprin) 81 mg PO DAILY [facility] Last Admin: 11/27/17 08:16 Dose: 81 mg Atorvastatin Calcium (Lipitor) 40 mg PO 1200 [facility] Last Admin: 11/26/17 16:14 Dose: 40 mg Azithromycin (Zithromax) 500 mg PO DAILY [facility] Last Admin: 11/27/17 08:16 Dose: 500 mg Ceftriaxone Sodium (Rocephin) 1 gm IVPUSH Q24H [facility] Last Admin: 11/26/17 16:13 Dose: 1 gm Docusate Sodium (Colace) 100 mg PO BID PRN PRN Reason: Constipation Gabapentin (Neurontin) 200 mg PO BID [facility] Last Admin: 11/27/17 08:15 Dose: 200 mg Heparin Sodium (Porcine) (Heparin Sodium) 5,000 units SUBCUT Q8HR [facility] Last Admin: 11/27/17 06:10 Dose: 5,000 units Sodium Chloride (Normal Saline) 1,000 mls @ 125 mls/hr IV ASDIRECTED [facility] Last Admin: 11/27/17 08:15 Dose: 125 mls/hr Insulin Aspart (Novolog) 0 unit SUBCUT TIDMEALS [facility] PRN Reason: Protocol Last Admin: 11/27/17 08:16 Dose: 3 units Insulin Aspart (Novolog) 18 unit SUBCUT BID@0800,1700 [facility] Last Admin: 11/27/17 08:17 Dose: 18 units Insulin Detemir (Levemir) 34 unit SUBCUT BID [facility] Last Admin: 11/27/17 08:17 Dose: 34 units Metoprolol Tartrate (Lopressor) 50 mg PO BID [facility] Last Admin: 11/27/17 08:16 Dose: 50 mg Nifedipine (Procardia Xl) 30 mg PO 1200 [facility] Last Admin: 11/26/17 16:14 Dose: 30 mg Omeprazole (Omeprazole) 20 mg PO ACBRK [facility] Last Admin: 11/27/17 06:09 Dose: 20 mg Ondansetron HCl (Zofran) 4 mg IVPUSH Q6H PRN PRN Reason: Nausea/Vomiting Last Admin: 11/26/17 16:14 Dose: 4 mg Sodium Chloride (Saline Flush) 10 ml FLUSH ASDIRECTED PRN PRN Reason: Keep Vein Open Last Admin: 11/26/17 12:47 Dose: 10 ml Sodium Chloride (Saline Flush) 10 ml FLUSH ASDIRECTED PRN PRN Reason: Keep Vein Open Discontinued Medications Albuterol/Ipratropium (Duoneb 3.0-0.5 Mg/3 Ml) 3 ml NEB ONETIME ONE Stop: 11/26/17 12:41 Last Admin: 11/26/17 12:47 Dose: 3 ml Sodium Chloride (Normal Saline) 1,000 mls @ 999 mls/hr IV .BOLUS ONE Stop: 11/26/17 13:36 Last Admin: 11/26/17 12:47 Dose: 999 mls/hr Levofloxacin/Dextrose 750 mg/ (Premix) 150 mls @ 100 mls/hr IV ONETIME ONE Stop: 11/26/17 14:06 Last Admin: 11/26/17 12:47 Dose: 100 mls/hr Insulin Aspart (Novolog) 18 unit SUBCUT BIDAC [facility] Last Admin: 11/26/17 17:16 Dose: 18 units Ondansetron HCl (Zofran) 4 mg IV ONETIME ONE Stop: 11/26/17 12:37 Last Admin: 11/26/17 12:46 Dose: 4 mg Penicillin G Procaine/Benzathine (Bicillin C-R 600/600) 1.2 millunits IM ONETIME ONE Stop: 11/26/17 12:56 Last Admin: 11/26/17 13:16 Dose: 1.2 millunits - Exam General: Alert, Oriented HEENT: Pupils Equal, Pupils Reactive, EOMI, Mucous Membr. Moist/[place] Neck: Supple Lungs: Clear to Auscultation, Normal Respiratory Effort Cardiovascular: Regular Rate, Regular Rhythm GI/Abdominal Exam: Normal Bowel Sounds, Soft, Non-Tender, No Organomegaly, No Distention, No Abnormal Bruit, No Mass, Pelvis Stable - Problem List & Annotations (1) JONNY (acute kidney injury) SNOMED Code(s): 33234966 Code(s): N17.9 - ACUTE KIDNEY FAILURE, UNSPECIFIED Status: Acute Current Visit: Yes (2) Pneumonia SNOMED Code(s): 392030897 Code(s): J18.9 - PNEUMONIA, UNSPECIFIED ORGANISM Status: Acute Current Visit: Yes Qualifiers: Pneumonia type: due to unspecified organism Laterality: right Lung location: lower lobe of lung Qualified Code(s): J18.1 - Lobar pneumonia, unspecified organism (3) Hypertension SNOMED Code(s): 50122781 Code(s): I10 - ESSENTIAL (PRIMARY) HYPERTENSION Status: Acute Current Visit: Yes (4) Sepsis SNOMED Code(s): 00920935 Code(s): A41.9 - SEPSIS, UNSPECIFIED ORGANISM Status: Acute Current Visit : Yes (5) Hyperglycemia due to type 2 diabetes mellitus SNOMED Code(s): 469745637913551 Code(s): E11.65 - TYPE 2 DIABETES MELLITUS WITH HYPERGLYCEMIA Status: Acute Current Visit: Yes Qualifiers: Diabetes mellitus [facility]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 Qualified Code(s): E11.65 - Type 2 diabetes mellitus with hyperglycemia - Problem List Review Problem List Initiated/Reviewed/Updated: Yes - My Orders Last 24 Hours: My Active Orders 11/26/17 15:45 Azithromycin [Zithromax] 500 mg PO DAILY NIFEdipine [Procardia XL] 30 mg PO 1200 atorvaSTATin [Lipitor] 40 mg PO 1200 11/26/17 15:46 Flutter Valve Therapy [RT Chest Physiotherapy] [RC] ASDIRECTED RT Incentive Spirometry [RC] ASDIRECTED 11/26/17 16:00 cefTRIAXone [Rocephin] 1 gm IVPUSH Q24H 11/26/17 18:00 Insulin Aspart [NovoLOG] See Protocol SUBCUT TIDMEALS 11/26/17 21:00 Gabapentin [Neurontin] 200 mg PO BID Insulin Detemir [Levemir] 34 unit SUBCUT BID Metoprolol Tartrate [Lopressor] 50 mg PO BID 11/27/17 06:00 Omeprazole 20 mg PO ACBRK 11/27/17 08:00 Insulin Aspart [NovoLOG] 18 unit SUBCUT BID@0800,1700 11/27/17 09:00 Aspirin [Halfprin] 81 mg PO DAILY - Plan Plan:: 57 yo M with PMH of hypertension, DM2 presenting with cough, shortness of breath. # Right lower lobe pneumonia, Sepsis POA CXR shows findings of RLL infiltrate, WBC markedly increased, JONNY Follow up blood cultures, if sputum produced, check sputum culture IV ceftriaxone + azithromycin Oxygen therapy to keep sats > 92% # JONNY likely 2/2 sepsis IV fluid hydration Trend Cr daily Avoid nephrotoxics # Hypertension SBP elevated continue nifedipine, home medication # DM2 Accuchecks, Insulin sliding scale Continue home insulin regimen Carb controlled diet # DVT ppx SC heparin # Full code
[2017-11-27] MEDS: atorvaSTATin 20 MG Tab PO SCH (14:03)
[2017-11-27] MEDS: NIFEdipine 30 MG Tab.ER PO SCH (14:04)
[2017-11-27] MEDS ORDERED: Furosemide 40 MG/4 ML VIAL IVPUSH ONE (15:23)
[2017-11-27] MEDS: cefTRIAXone 1 GM Vial IVPUSH SCH (15:50)
[2017-11-28] MEDS: Sodium Chloride 0.9% 1,000 ML IV SCH ×3 (00:17→18:00)
[2017-11-28] MEDS: Omeprazole 20 MG Cap.CR PO SCH (06:23)
[2017-11-28] MEDS: Heparin Sodium 5,000 Units/ML Vial SUBCUT SCH ×3 (06:25→21:12)
[2017-11-28] MEDS: Acetaminophen 325 MG Tab PO PRN ×2 (09:08→14:05)
[2017-11-28] MEDS: Gabapentin 100 MG Cap PO SCH ×2 (09:09→21:04)
[2017-11-28] MEDS: Metoprolol Tartrate 50 MG Tab PO SCH ×2 (09:09→21:04)
[2017-11-28] MEDS: Azithromycin 250 MG Tab PO SCH (09:09)
[2017-11-28] MEDS: Aspirin 81 MG Tab.EC PO SCH (09:10)
[2017-11-28] MEDS: Insulin Detemir 100 Units/ML 3 ML Pen SUBCUT SCH ×2 (09:11→21:10)
[2017-11-28] MEDS: Insulin Aspart 100 Units/ML 3 ML Pen SUBCUT SCH ×5 (09:12→17:26)
--- NOTE | 2017-11-28 10:27 | PCM.PN ---
- General Info Date of Service: 11/28/17 Admission Dx/Problem (Free Text): Admission Diagnosis/Problem Admission Diagnosis/Problem Right lower lobe pneumonia Subjective Update: 57 yo M admitted with cough, sob found to have RLL pneumonia. Patient seen and examined by me. Sitting in chair SOB and cough has improved. left leg redness, swelling, pain noted - Review of Systems General: Reports: No Symptoms HEENT: Reports: No Symptoms Pulmonary: Reports: No Symptoms Cardiovascular: Reports: No Symptoms Gastrointestinal: Reports: No Symptoms Genitourinary: Reports: No Symptoms Skin: Reports: Other (left leg redness) - Patient Data Vitals - Most Recent: Last Vital Signs Temp 37.2 C 11/28/17 08:25 Pulse 91 11/28/17 09:09 Resp 20 11/28/17 08:25 BP 160/79 H 11/28/17 09:09 Pulse Ox 95 11/28/17 08:25 Weight - Most Recent: 159.211 kg I&O - Last 24 Hours: Intake & Output 11/27/17 11/28/17 11/28/17 22:59 06:59 14:59 Intake Total 400 1719 723 Balance 400 1719 723 Lab Results Last 24 Hours: Laboratory Results - last 24 hr 11/27/17 11/27/17 11/27/17 Range/Units 11:19 17:03 20:54 Sodium (135-145) mmol/L Potassium (3.6-5.0) mmol/L Chloride (101-111) mmol/L Carbon Dioxide (21.0-31.0) mmol/L Anion Gap BUN (7-18) mg/dL Creatinine (0.6-1.3) mg/dL Est Cr Clr Drug Dosing mL/min Estimated GFR (MDRD) Glucose (74-105) mg/dL POC Glucose 172 H 213 H 195 H (70-105) mg/dl Calcium (8.4-10.2) mg/dl 11/28/17 Range/Units 06:36 Sodium 135 (135-145) mmol/L Potassium 4.5 (3.6-5.0) mmol/L Chloride 106 (101-111) mmol/L Carbon Dioxide 23.0 (21.0-31.0) mmol/L Anion Gap 10.5 BUN 43 H (7-18) mg/dL Creatinine 2.3 H (0.6-1.3) mg/dL Est Cr Clr Drug Dosing 36.59 mL/min Estimated GFR (MDRD) 29 Glucose 136 H (74-105) mg/dL POC Glucose (70-105) mg/dl Calcium 7.7 L (8.4-10.2) mg/dl Med Orders - Current: Current Medications Acetaminophen (Tylenol) 650 mg PO Q4H PRN PRN Reason: Fever Last Admin: 11/28/17 09:08 Dose: 650 mg Aspirin (Halfprin) 81 mg PO DAILY [facility] Last Admin: 11/28/17 09:10 Dose: 81 mg Atorvastatin Calcium (Lipitor) 40 mg PO 1200 [facility] Last Admin: 11/27/17 14:03 Dose: 40 mg Azithromycin (Zithromax) 500 mg PO DAILY [facility] Last Admin: 11/28/17 09:09 Dose: 500 mg Ceftriaxone Sodium (Rocephin) 1 gm IVPUSH Q24H [facility] Last Admin: 11/27/17 15:50 Dose: 1 gm Docusate Sodium (Colace) 100 mg PO BID PRN PRN Reason: Constipation Gabapentin (Neurontin) 200 mg PO BID [facility] Last Admin: 11/28/17 09:09 Dose: 200 mg Heparin Sodium (Porcine) (Heparin Sodium) 5,000 units SUBCUT Q8HR [facility] Last Admin: 11/28/17 06:25 Dose: 5,000 units Sodium Chloride (Normal Saline) 1,000 mls @ 125 mls/hr IV ASDIRECTED [facility] Last Admin: 11/28/17 08:54 Dose: 125 mls/hr Insulin Aspart (Novolog) 0 unit SUBCUT TIDMEALS [facility] PRN Reason: Protocol Last Admin: 11/28/17 09:12 Dose: 3 units Insulin Aspart (Novolog) 18 unit SUBCUT BID@0800,1700 [facility] Last Admin: 11/28/17 09:13 Dose: 18 units Insulin Detemir (Levemir) 34 unit SUBCUT BID [facility] Last Admin: 11/28/17 09:11 Dose: 34 units Metoprolol Tartrate (Lopressor) 50 mg PO BID [facility] Last Admin: 11/28/17 09:09 Dose: 50 mg Nifedipine (Procardia Xl) 30 mg PO 1200 [facility] Last Admin: 11/27/17 14:04 Dose: 30 mg Omeprazole (Omeprazole) 20 mg PO ACBRK [facility] Last Admin: 11/28/17 06:23 Dose: 20 mg Ondansetron HCl (Zofran) 4 mg IVPUSH Q6H PRN PRN Reason: Nausea/Vomiting Last Admin: 11/26/17 16:14 Dose: 4 mg Sodium Chloride (Saline Flush) 10 ml FLUSH ASDIRECTED PRN PRN Reason: Keep Vein Open Last Admin: 11/26/17 12:47 Dose: 10 ml Sodium Chloride (Saline Flush) 10 ml FLUSH ASDIRECTED PRN PRN Reason: Keep Vein Open Discontinued Medications Albuterol/Ipratropium (Duoneb 3.0-0.5 Mg/3 Ml) 3 ml NEB ONETIME ONE Stop: 11/26/17 12:41 Last Admin: 11/26/17 12:47 Dose: 3 ml Furosemide (Lasix) 40 mg IVPUSH NOW ONE Stop: 11/27/17 15:24 Last Admin: 11/27/17 15:50 Dose: 40 mg Sodium Chloride (Normal Saline) 1,000 mls @ 999 mls/hr IV .BOLUS ONE Stop: 11/26/17 13:36 Last Admin: 11/26/17 12:47 Dose: 999 mls/hr Levofloxacin/Dextrose 750 mg/ (Premix) 150 mls @ 100 mls/hr IV ONETIME ONE Stop: 11/26/17 14:06 Last Admin: 11/26/17 12:47 Dose: 100 mls/hr Insulin Aspart (Novolog) 18 unit SUBCUT BIDAC [facility] Last Admin: 11/26/17 17:16 Dose: 18 units Ondansetron HCl (Zofran) 4 mg IV ONETIME ONE Stop: 11/26/17 12:37 Last Admin: 11/26/17 12:46 Dose: 4 mg Penicillin G Procaine/Benzathine (Bicillin C-R 600/600) 1.2 millunits IM ONETIME ONE Stop: 11/26/17 12:56 Last Admin: 11/26/17 13:16 Dose: 1.2 millunits - Exam General: Alert, Oriented HEENT: Pupils Equal, Pupils Reactive, EOMI, Mucous Membr. Moist/[place] Neck: Supple Lungs: Clear to Auscultation, Normal Respiratory Effort Cardiovascular: Regular Rate, Regular Rhythm Skin: Other (lef leg swelling, redness, tenderness) - Problem List & Annotations (1) JONNY (acute kidney injury) SNOMED Code(s): 84908396 Code(s): N17.9 - ACUTE KIDNEY FAILURE, UNSPECIFIED Status: Acute Current Visit: Yes (2) Pneumonia SNOMED Code(s): 458479400 Code(s): J18.9 - PNEUMONIA, UNSPECIFIED ORGANISM Status: Acute Current Visit: Yes Qualifiers: Pneumonia type: due to unspecified organism Laterality: right Lung location: lower lobe of lung Qualified Code(s): J18.1 - Lobar pneumonia, unspecified organism (3) Hypertension SNOMED Code(s): 17137133 Code(s): I10 - ESSENTIAL (PRIMARY) HYPERTENSION Status: Acute Current Visit: Yes (4) Sepsis SNOMED Code(s): 15374325 Code(s): A41.9 - SEPSIS, UNSPECIFIED ORGANISM Status: Acute Current Visit : Yes (5) Hyperglycemia due to type 2 diabetes mellitus SNOMED Code(s): 918459898219004 Code(s): E11.65 - TYPE 2 DIABETES MELLITUS WITH HYPERGLYCEMIA Status: Acute Current Visit: Yes Qualifiers: 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 # Left leg cellulitis continue on IV ceftriaxone # Right lower lobe pneumonia, Sepsis POA CXR shows findings of RLL infiltrate, WBC markedly increased, JONNY Follow up blood cultures, if sputum produced, check sputum culture IV ceftriaxone + azithromycin Oxygen therapy to keep sats > 92% # JONNY improving continue IV fluid hydration Trend Cr daily Avoid nephrotoxics # Hypertension continue nifedipine, home medication # DM2 Accuchecks, Insulin sliding scale Continue home insulin regimen Carb controlled diet # DVT ppx SC heparin # Full code
[2017-11-28] MEDS: NIFEdipine 30 MG Tab.ER PO SCH (14:05)
[2017-11-28] MEDS: atorvaSTATin 20 MG Tab PO SCH (14:05)
[2017-11-28] MEDS: cefTRIAXone 1 GM Vial IVPUSH SCH (17:25)
[2017-11-29] MEDS: Sodium Chloride 0.9% 1,000 ML IV SCH (02:03)
[2017-11-29] MEDS: Omeprazole 20 MG Cap.CR PO SCH (06:20)
[2017-11-29] MEDS: Heparin Sodium 5,000 Units/ML Vial SUBCUT SCH (06:21)
[2017-11-29] MEDS: Acetaminophen 325 MG Tab PO PRN (08:52)
[2017-11-29] MEDS: Metoprolol Tartrate 50 MG Tab PO SCH (08:53)
[2017-11-29] MEDS: Azithromycin 250 MG Tab PO SCH (08:53)
[2017-11-29] MEDS: Aspirin 81 MG Tab.EC PO SCH (08:53)
[2017-11-29] MEDS: Gabapentin 100 MG Cap PO SCH (08:53)
[2017-11-29] MEDS: Insulin Aspart 100 Units/ML 3 ML Pen SUBCUT SCH ×3 (08:54→12:21)
[2017-11-29] MEDS: Insulin Detemir 100 Units/ML 3 ML Pen SUBCUT SCH (08:55)
--- NOTE | 2017-11-29 11:56 | PCM.DCSUM1 ---
Discharge Summary - Hospital Course Free Text/Narrative:: 57 yo M admitted with cough, sob found to have RLL pneumonia. Patient seen and examined by me. Sitting in chair SOB and cough has improved. left leg redness, swelling, pain noted # Left leg cellulitis continue on oral ceflex for 10 days # Right lower lobe pneumonia, Sepsis POA discharge on oral ceflex for 10 days # JONNY improving f/u with PCP for BMP check in one week # Hypertension continue nifedipine, home medication # DM2 Continue home insulin regimen Carb controlled diet - Discharge Data Discharge Date: 11/29/17 Discharge Disposition: Home, Self-Care 01 Condition: Good - Discharge Diagnosis/Problem(s) (1) JONNY (acute kidney injury) SNOMED Code(s): 69368933 ICD Code: N17.9 - ACUTE KIDNEY FAILURE, UNSPECIFIED Status: Acute Current Visit: Yes (2) Pneumonia SNOMED Code(s): 100864675 ICD Code: J18.9 - PNEUMONIA, UNSPECIFIED ORGANISM Status: Acute Current Visit: Yes Qualifiers: Pneumonia type: due to unspecified organism Laterality: right Lung location: lower lobe of lung Qualified Code(s): J18.1 - Lobar pneumonia, unspecified organism (3) Hypertension SNOMED Code(s): 92830244 ICD Code: I10 - ESSENTIAL (PRIMARY) HYPERTENSION Status: Acute Current Visit: Yes (4) Sepsis SNOMED Code(s): 77654167 ICD Code: A41.9 - SEPSIS, UNSPECIFIED ORGANISM Status: Acute Current Visit: Yes (5) Hyperglycemia due to type 2 diabetes mellitus SNOMED Code(s): 695737142461906 ICD Code: E11.65 - TYPE 2 DIABETES MELLITUS WITH HYPERGLYCEMIA Status: Acute Current Visit: Yes 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 Qualified Code(s): E11.65 - Type 2 diabetes mellitus with hyperglycemia - Patient Instructions Diet: Diabetic Diet Activity: As Tolerated Showering/Bathing: May Shower - Discharge Plan Prescriptions/Med Rec: Cephalexin [Keflex] 500 mg PO QID 10 Days capsule Home Medications: Home Meds Acetaminophen [Tylenol] 650 mg PO TID PRN 04/11/17 [History] Aspirin [Ecotrin] 81 mg PO DAILY 04/11/17 [History] Gabapentin [Neurontin] 200 mg PO BID 04/11/17 [History] Insulin Aspart [NovoLOG] 18 unit SUBCUT BIDAC 04/11/17 [History] Insulin Detemir [Levemir] 34 unit SQ BID 04/11/17 [History] Metoprolol Tartrate 50 mg PO BID 07/25/17 [History] NIFEdipine [Nifedipine ER] 30 mg PO .NOON 07/25/17 [History] Omeprazole 20 mg PO DAILY 11/26/17 [History] atorvaSTATin Calcium [Atorvastatin Calcium] 40 mg PO .NOON 11/26/17 [History] Cephalexin [Keflex] 500 mg PO QID 10 Days capsule 11/29/17 [Rx] Patient Handouts: Community-Acquired Pneumonia, Adult, [id number] - Discharge Summary/Plan Comment DC Time >30 min.: Yes - General Info Admission Dx/Problem (Free Text: Admission Diagnosis/Problem Admission Diagnosis/Problem Right lower lobe pneumonia Subjective Update: 57 yo M admitted with cough, sob found to have RLL pneumonia. Patient seen and examined by me. Sitting in chair SOB and cough has improved. left leg redness, swelling, has improved. left leg pain has resolved Functional Status: Reports: Pain Controlled - Review of Systems General: Reports: No Symptoms HEENT: Reports: No Symptoms Pulmonary: Reports: No Symptoms Cardiovascular: Reports: No Symptoms Gastrointestinal: Reports: No Symptoms Genitourinary: Reports: No Symptoms - Patient Data Vitals - Most Recent: Last Vital Signs Temp 36.6 C 11/29/17 07:56 Pulse 87 11/29/17 08:53 Resp 20 11/29/17 07:56 BP 148/77 H 11/29/17 08:53 Pulse Ox 95 11/29/17 07:56 Weight - Most Recent: 159.392 kg I&O - Last 24 hours: Intake & Output 11/28/17 11/29/17 11/29/17 22:59 06:59 14:59 Intake Total 1050 1495 1747 Output Total 800 2100 Balance 250 -605 1747 Lab Results - Last 24 hrs: Laboratory Results - last 24 hr 11/28/17 11/29/17 Range/Units 16:44 08:00 Sodium 139 (135-145) mmol/L Potassium 4.3 (3.6-5.0) mmol/L Chloride 109 (101-111) mmol/L Carbon Dioxide 23.0 (21.0-31.0) mmol/L Anion Gap 11.3 BUN 32 H (7-18) mg/dL Creatinine 1.8 H (0.6-1.3) mg/dL Est Cr Clr Drug Dosing 46.75 mL/min Estimated GFR (MDRD) 39 Glucose 145 H (74-105) mg/dL POC Glucose 161 H (70-105) mg/dl Calcium 8.1 L (8.4-10.2) mg/dl Med Orders - Current: Current Medications Acetaminophen (Tylenol) 650 mg PO Q4H PRN PRN Reason: Fever Last Admin: 11/29/17 08:52 Dose: 650 mg Aspirin (Halfprin) 81 mg PO DAILY [facility] Last Admin: 11/29/17 08:53 Dose: 81 mg Atorvastatin Calcium (Lipitor) 40 mg PO 1200 [facility] Last Admin: 11/28/17 14:05 Dose: 40 mg Azithromycin (Zithromax) 500 mg PO DAILY [facility] Last Admin: 11/29/17 08:53 Dose: 500 mg Ceftriaxone Sodium (Rocephin) 1 gm IVPUSH Q24H [facility] Last Admin: 11/28/17 17:25 Dose: 1 gm Docusate Sodium (Colace) 100 mg PO BID PRN PRN Reason: Constipation Gabapentin (Neurontin) 200 mg PO BID [facility] Last Admin: 11/29/17 08:53 Dose: 200 mg Heparin Sodium (Porcine) (Heparin Sodium) 5,000 units SUBCUT Q8HR [facility] Last Admin: 11/29/17 06:21 Dose: 5,000 units Sodium Chloride (Normal Saline) 1,000 mls @ 125 mls/hr IV ASDIRECTED [facility] Last Infusion: 11/29/17 10:50 Dose: Infused Insulin Aspart (Novolog) 0 unit SUBCUT TIDMEALS [facility] PRN Reason: Protocol Last Admin: 11/29/17 08:54 Dose: 3 units Insulin Aspart (Novolog) 18 unit SUBCUT BID@0800,1700 [facility] Last Admin: 11/29/17 08:54 Dose: 18 units Insulin Detemir (Levemir) 34 unit SUBCUT BID [facility] Last Admin: 11/29/17 08:55 Dose: 34 units Metoprolol Tartrate (Lopressor) 50 mg PO BID [facility] Last Admin: 11/29/17 08:53 Dose: 50 mg Nifedipine (Procardia Xl) 30 mg PO 1200 [facility] Last Admin: 11/28/17 14:05 Dose: 30 mg Omeprazole (Omeprazole) 20 mg PO ACBRK [facility] Last Admin: 11/29/17 06:20 Dose: 20 mg Ondansetron HCl (Zofran) 4 mg IVPUSH Q6H PRN PRN Reason: Nausea/Vomiting Last Admin: 11/26/17 16:14 Dose: 4 mg Sodium Chloride (Saline Flush) 10 ml FLUSH ASDIRECTED PRN PRN Reason: Keep Vein Open Discontinued Medications Albuterol/Ipratropium (Duoneb 3.0-0.5 Mg/3 Ml) 3 ml NEB ONETIME ONE Stop: 11/26/17 12:41 Last Admin: 11/26/17 12:47 Dose: 3 ml Furosemide (Lasix) 40 mg IVPUSH NOW ONE Stop: 11/27/17 15:24 Last Admin: 11/27/17 15:50 Dose: 40 mg Sodium Chloride (Normal Saline) 1,000 mls @ 999 mls/hr IV .BOLUS ONE Stop: 11/26/17 13:36 Last Admin: 11/26/17 12:47 Dose: 999 mls/hr Levofloxacin/Dextrose 750 mg/ (Premix) 150 mls @ 100 mls/hr IV ONETIME ONE Stop: 11/26/17 14:06 Last Admin: 11/26/17 12:47 Dose: 100 mls/hr Insulin Aspart (Novolog) 18 unit SUBCUT BIDAC [facility] Last Admin: 11/26/17 17:16 Dose: 18 units Ondansetron HCl (Zofran) 4 mg IV ONETIME ONE Stop: 11/26/17 12:37 Last Admin: 11/26/17 12:46 Dose: 4 mg Penicillin G Procaine/Benzathine (Bicillin C-R 600/600) 1.2 millunits IM ONETIME ONE Stop: 11/26/17 12:56 Last Admin: 11/26/17 13:16 Dose: 1.2 millunits Sodium Chloride (Saline Flush) 10 ml FLUSH ASDIRECTED PRN PRN Reason: Keep Vein Open Last Admin: 11/26/17 12:47 Dose: 10 ml - Exam General: Reports: Alert, Oriented HEENT: Reports: Pupils Equal Neck: Reports: Supple Lungs: Reports: Clear to Auscultation Cardiovascular: Reports: Regular Rate GI/Abdominal Exam: Normal Bowel Sounds, Soft (Male) Exam: No Hernia *Q Meaningful Use (DIS) - VTE *Q VTE Criteria *Q: - Stroke *Q Stroke Criteria *Q: - AMI *Q AMI Criteria *Q:
[2017-11-29] MEDS: NIFEdipine 30 MG Tab.ER PO SCH (13:02)
[2017-11-29] MEDS: atorvaSTATin 20 MG Tab PO SCH (13:02)
[2017-11-29 13:03] VITALS: BP 149/86
--- NOTE | 2017-11-30 11:39 | EKG ---
11/26/2017 - AVTAR BETANCUR - TIME: 12:05 p.m. The EKG interpretation is performed by me. EKG shows sinus tachycardia with a rate 100 beats per minutes, normal axis, normal QRS complex, normal ST segments, and T-wave. [facility] /[id number]
== END 2017-11-29 13:14 | disposition home or self-care (01) | DRG 871 ==
LOC: DL.ED 11:45 → UNDOADMIN 14:24 → DL.MS 14:24
PROVIDERS: ADMIT Hospitalist; ATTEND Hospitalist
DX: A41.9 Sepsis, unspecified organism (principal); J18.9 Pneumonia, unspecified organism; N17.9 Acute kidney failure, unspecified; L03.116 Cellulitis of left lower limb; J02.0 Streptococcal pharyngitis; I10 Essential (primary) hypertension; E78.00 Pure hypercholesterolemia, unspecified; E11.65 Type 2 diabetes mellitus with hyperglycemia; E11.21 Type 2 diabetes mellitus with diabetic nephropathy; I12.9 Hypertensive chronic kidney disease with stage 1 through stage 4 chronic kidney disease, or unspecified chronic kidney disease; E11.22 Type 2 diabetes mellitus with diabetic chronic kidney disease; N18.9 Chronic kidney disease, unspecified; E66.9 Obesity, unspecified; Z86.73 Personal history of transient ischemic attack (TIA), and cerebral infarction without residual deficits; Z79.82 Long term (current) use of aspirin; Z79.4 Long term (current) use of insulin; Z79.899 Other long term (current) drug therapy; Z87.891 Personal history of nicotine dependence
CPT/HCPCS: 36415; 71045; 80048; 80053; 80076; 81001; 82150; 82550; 82553; 82962; 83605; 83690; 83735; 83880; 84100; 84484; 85025; 87040; 87430; 87804; 93005; 94640; 96365; 96366; 96372; 96375; 99285; A9270-GY; J0558; J0696; J1644; J1815-GY; J1940; J1956; J2405; J7030; J7050

== ENCOUNTER 2017-12-16 02:01 | Emergency (ER) | payer OTHER ==
[2017-12-16] MEDS ORDERED: Ondansetron 4 MG Tab.DIS PO ONE (02:02)
[2017-12-16] MEDS ORDERED: Sodium Polystyrene Sulfonate 15 GM/60 ML Susp 60 ML Bot PO ONE (02:02)
[2017-12-16] MEDS ORDERED: Albuterol 0.083% 2.5 MG/3 ML Neb Soln INH ONE (02:02)
[2017-12-16] MEDS ORDERED: Ondansetron 4 MG/2 ML SDV IV ONE (02:28)
[2017-12-16 02:55] LABS: CHLORIDE,CL 105 mmol/L (101-111); SODIUM,NA 135 mmol/L (135-145)
[2017-12-16] MEDS ORDERED: Albuterol 0.083% 2.5 MG/3 ML Neb Soln NEB ONE (02:57)
[2017-12-16] MEDS ORDERED: Ondansetron 4 MG Tab.DIS ONE (03:27)
[2017-12-16] MEDS ORDERED: Sodium Polystyrene Sulfonate 15 GM/60 ML Susp 60 ML Bot ONE (03:28)
[2017-12-16] MEDS ORDERED: Albuterol 0.083% 2.5 MG/3 ML Neb Soln ONE (03:28)
--- NOTE | 2017-12-16 03:38 | EDM.PDOC ---
ED HPI GENERAL MEDICAL PROBLEM - General Chief Complaint: General Stated Complaint: KIERAN [id number] Time Seen by Provider: 12/16/17 02:10 Source of Information: Reports: Patient, Family, RN Notes Reviewed History Limitations: Reports: No Limitations - History of Present Illness INITIAL COMMENTS - FREE TEXT/NARRATIVE: ED with c/o generalized weakness and shaking. Had had one emesis tonight and many loose diarrhea stools. Diabetic, blood sugar greater than 200 [employer] TIP. Nausea still present, denies pain ,. Recent hospitalization for pneumonia, released on 12/03 with antibiotic and completed course on 12/13 Notes that since finishing antibiotic does seem to be feeling worse. - Related Data Allergies Allergy/AdvReac Type Severity Reaction Status Date / Time No Known Allergies Allergy Verified 12/16/17 02:05 Home Meds: Home Meds Acetaminophen [Tylenol] 650 mg PO TID PRN 04/11/17 [History] Aspirin [Ecotrin] 81 mg PO DAILY 04/11/17 [History] Gabapentin [Neurontin] 200 mg PO BID 04/11/17 [History] Insulin Aspart [NovoLOG] 18 unit SUBCUT BIDAC 04/11/17 [History] Insulin Detemir [Levemir] 34 unit SQ BID 04/11/17 [History] Metoprolol Tartrate 50 mg PO BID 07/25/17 [History] NIFEdipine [Nifedipine ER] 30 mg PO .NOON 07/25/17 [History] Omeprazole 20 mg PO DAILY 11/26/17 [History] atorvaSTATin Calcium [Atorvastatin Calcium] 40 mg PO .NOON 11/26/17 [History] Cephalexin [Keflex] 500 mg PO QID 10 Days capsule 11/29/17 [Rx] Past Medical History HEENT History: Reports: Impaired Vision Other HEENT History: wears glasses Cardiovascular History: Reports: High Cholesterol, Hypertension Respiratory History: Reports: Intubation, Previous Genitourinary History: Reports: Chronic Renal Insuffiency, Diabetic Nephropathy Musculoskeletal History: Reports: Osteoarthritis Neurological History: Reports: CVA, Neuropathy, Diabetic Psychiatric History: Reports: None Endocrine/Metabolic History: Reports: Diabetes, Type II, Obesity/BMI 30+ Hematologic History: Reports: None Immunologic History: Reports: None Oncologic (Cancer) History: Reports: None Dermatologic History: Reports: None - Infectious Disease History Infectious Disease History: Reports: None - Past Surgical History GI Surgical History: Reports: Cholecystectomy Musculoskeletal Surgical History: Reports: Hip Replacement Social & Family History - Family History Family Medical History: Noncontributory - Tobacco Use Smoking Status *Q: Never Smoker Years of Tobacco use: 20 Packs/Tins Daily: 1.5 Used Tobacco, but Quit: Yes Month/Year Tobacco Last Used: dec Second Hand Smoke Exposure: No - Caffeine Use Caffeine Use: Reports: None - Recreational Drug Use Recreational Drug Use: No - Living Situation & Occupation Living situation: Reports: with Family Occupation: Disabled ED ROS GENERAL - Review of Systems Review Of Systems: See Below Constitutional: Reports: Chills, Weakness HEENT: Reports: No Symptoms Respiratory: Reports: No Symptoms Cardiovascular: Reports: No Symptoms Endocrine: Reports: High Glucose GI/Abdominal: Reports: Diarrhea, Decreased Appetite, Nausea, Vomiting. Denies: Abdominal Pain : Reports: No Symptoms Skin: Reports: No Symptoms Neurological: Reports: No Symptoms ED EXAM, GENERAL - Physical Exam Exam: See Below Exam Limited By: No Limitations General Appearance: Alert, Mild Distress Eye Exam: Bilateral Eye: EOMI Ears: Normal External Exam, Normal TMs Nose: Normal Inspection Throat/Mouth: Normal Inspection Head: Atraumatic, Normocephalic Neck: Full Range of Motion Respiratory/Chest: No Respiratory Distress, Decreased Breath Sounds Cardiovascular: Normal Peripheral Pulses GI/Abdominal: Normal Bowel Sounds, Soft, Non-Tender, No Distention Extremities: Normal Inspection Neurological: Alert, Oriented, Normal Cognition, Other (upper body tremors) Psychiatric: Normal Affect, Normal Mood Skin Exam: Warm, Dry, Intact, Normal Color Course - Vital Signs Last Recorded V/S: Last Vital Signs Temp 99.5 F 12/16/17 02:05 Pulse 102 H 12/16/17 03:40 Resp 18 12/16/17 03:40 BP 135/66 12/16/17 03:40 Pulse Ox 92 L 12/16/17 03:40 - Orders/Labs/Meds Orders: Active Orders 24 hr Category Date Time Status RT Aerosol Therapy [RC] ASDIRECTED Care 12/16/17 02:58 Active Chest 1V Frontal [CR] Urgent Exams 12/16/17 02:13 Taken CULTURE BLOOD [BC] Stat Lab 12/16/17 02:20 Received CULTURE BLOOD [BC] Stat Lab 12/16/17 02:25 Received Blood Culture x2 Reflex Set [OM.PC] Stat Oth 12/16/17 02:13 Ordered Labs: Laboratory Tests 12/16/17 12/16/17 12/16/17 Range/Units 02:20 02:20 02:20 WBC 12.8 H (5.0-10.0) 10^3/uL RBC 5.86 (4.6-6.2) 10^6/uL Hgb 15.1 D (14.0-18.0) g/dL Hct 46.9 (40.0-54.0) % MCV 80.0 (80-100) fL MCH 25.8 L (27.0-34.0) pg MCHC 32.2 L (33.0-35.0) g/dL Plt Count 224 D (150-450) 10^3/uL Neut % (Auto) 86.1 H (42.2-75.2) % Lymph % (Auto) 6.6 L (20.5-50.1) % Yates % (Auto) 3.8 (2-8) % Eos % (Auto) 3.1 H (1.0-3.0) % Baso % (Auto) 0.4 (0.0-1.0) % Sodium 135 (135-145) mmol/L Potassium 5.7 H (3.6-5.0) mmol/L Chloride 105 (101-111) mmol/L Carbon Dioxide 22.0 (21.0-31.0) mmol/L Anion Gap 13.7 BUN 45 H (7-18) mg/dL Creatinine 1.9 H (0.6-1.3) mg/dL Est Cr Clr Drug Dosing 43.94 mL/min Estimated GFR (MDRD) 37 BUN/Creatinine Ratio 23.68 Glucose 230 H (74-105) mg/dL Lactic Acid 1.3 (0.5-2.2) mmol/L Calcium 8.3 L (8.4-10.2) mg/dl Total Bilirubin 0.9 (0.2-1.0) mg/dL AST 39 (10-42) IU/L ALT 36 (10-60) IU/L Alkaline Phosphatase 143 H (42-121) IU/L Troponin I < 0.02 (0.00-0.02) ng/ml C-Reactive Protein (0.0-1.3) mg/dL Total Protein 7.7 (6.7-8.2) g/dl Albumin 3.2 (3.2-5.5) g/dl Globulin 4.5 Albumin/Globulin Ratio 0.71 Amylase 68 (28-100) U/L Lipase 35 (22-51) U/L Urine Color (YELLOW) Urine Appearance (CLEAR) Urine pH (5.0-9.0) Ur Specific [place] (1.005-1.030) Urine Protein (NEGATIVE) Urine Glucose (UA) (NEGATIVE) Urine Ketones (NEGATIVE) Urine Occult Blood (NEGATIVE) Urine Nitrite (NEGATIVE) Urine Bilirubin (NEGATIVE) Urine Urobilinogen (0.2-1.0) mg/dL Ur Leukocyte Esterase (NEGATIVE) Urine RBC /HPF Urine WBC (0-5/HPF) /HPF Ur Epithelial Cells /HPF Urine Bacteria (0-FEW/HPF) /HPF 12/16/17 12/16/17 Range/Units 02:20 02:30 WBC (5.0-10.0) 10^3/uL RBC (4.6-6.2) 10^6/uL Hgb (14.0-18.0) g/dL Hct (40.0-54.0) % MCV (80-100) fL MCH (27.0-34.0) pg MCHC (33.0-35.0) g/dL Plt Count (150-450) 10^3/uL Neut % (Auto) (42.2-75.2) % Lymph % (Auto) (20.5-50.1) % [place] % (Auto) (2-8) % Eos % (Auto) (1.0-3.0) % Baso % (Auto) (0.0-1.0) % Sodium (135-145) mmol/L Potassium (3.6-5.0) mmol/L Chloride (101-111) mmol/L Carbon Dioxide (21.0-31.0) mmol/L Anion Gap BUN (7-18) mg/dL Creatinine (0.6-1.3) mg/dL Est Cr Clr Drug Dosing mL/min Estimated GFR (MDRD) BUN/Creatinine Ratio Glucose (74-105) mg/dL Lactic Acid (0.5-2.2) mmol/L Calcium (8.4-10.2) mg/dl Total Bilirubin (0.2-1.0) mg/dL AST (10-42) IU/L ALT (10-60) IU/L Alkaline Phosphatase (42-121) IU/L Troponin I (0.00-0.02) ng/ml C-Reactive Protein 0.9 (0.0-1.3) mg/dL Total Protein (6.7-8.2) g/dl Albumin (3.2-5.5) g/dl Globulin Albumin/Globulin Ratio Amylase (28-100) U/L Lipase (22-51) U/L Urine Color Yellow (YELLOW) Urine Appearance Clear (CLEAR) Urine pH 5.5 (5.0-9.0) Ur Specific [place] 1.020 (1.005-1.030) Urine Protein >=300 H (NEGATIVE) Urine Glucose (UA) 100 H (NEGATIVE) Urine Ketones Negative (NEGATIVE) Urine Occult Blood Moderate H (NEGATIVE) Urine Nitrite Negative (NEGATIVE) Urine Bilirubin Negative (NEGATIVE) Urine Urobilinogen 0.2 (0.2-1.0) mg/dL Ur Leukocyte Esterase Negative (NEGATIVE) Urine RBC 5-10 H /HPF Urine WBC 0-5 (0-5/HPF) /HPF Ur Epithelial Cells Few /HPF Urine Bacteria Few (0-FEW/HPF) /HPF Meds: Medications Discontinued Medications Generic Name Dose Route Start Last Admin Trade Name Elia PRN Reason Stop Dose Admin Albuterol 2.5 mg 12/16/17 02:57 12/16/17 03:01 Proventil Neb Soln NEB 12/16/17 02:58 2.5 mg ONETIME ONE Administration Albuterol Confirm 12/16/17 03:28 12/16/17 03:33 Proventil Neb Soln Administered 12/16/17 03:29 Not Given Dose 5 mg .ROUTE .STK-MED ONE Ondansetron HCl 4 mg 12/16/17 02:28 12/16/17 02:33 Zofran IV 12/16/17 02:29 4 mg ONETIME ONE Administration Ondansetron HCl Confirm 12/16/17 03:27 12/16/17 03:33 Zofran Odt Administered 12/16/17 03:28 Not Given Dose 8 mg .ROUTE .STK-MED ONE Sodium Polystyrene Sulfonate Confirm 12/16/17 03:28 12/16/17 03:33 Kayexalate Administered 12/16/17 03:29 Not Given Dose 15 gm .ROUTE .K-MED ONE - Radiology Interpretation Free Text/Narrative:: CXR left lower lobe atelectasis vs pneumonitis. - Re-Assessments/Exams Free Text/Narrative Re-Assessment/Exam: 12/16/17 03:38 Nausea resolved following zofran. Albuterol nebulizer , improved airexchange fine crackles left base no wheeze. Discussed possible hospitalization due to recent pneumonia and comorbidities. Patient declined. present, agreeable to have hime rechecked in clinic on Wednesday. Informed that even if feeling better, Potassium level would need to be rechecked. Departure - Departure Time of Disposition: 03:30 Disposition: Home, Self-Care 01 Condition: Fair Clinical Impression: Pneumonitis, Nausea vomiting and diarrhea, Hyperkalemia - Discharge Information Instructions: Hyperkalemia, [id number] Referrals: PCP,None [Primary Care Provider] - Forms: ED Department Discharge Additional Instructions: fluids recheck with primary care on Wednesday, sooner if increased weakness, shakes or difficulty breathing omnicef 300mg one twice daily for one week low potassium diet albuterol 2.5mg/3l every 4 hours as needed zofran ODT one every 4 hours as needed for vomiting - My Orders Last 24 Hours: My Active Orders 12/16/17 02:13 Chest 1V Frontal [CR] Urgent Blood Culture x2 Reflex Set [OM.PC] Stat 12/16/17 02:20 CULTURE BLOOD [BC] Stat 12/16/17 02:25 CULTURE BLOOD [BC] Stat 12/16/17 02:58 RT Aerosol Therapy [RC] ASDIRECTED - Assessment/Plan Last 24 Hours: My Active Orders 12/16/17 02:13 Chest 1V Frontal [CR] Urgent Blood Culture x2 Reflex Set [OM.PC] Stat 12/16/17 02:20 CULTURE BLOOD [BC] Stat 12/16/17 02:25 CULTURE BLOOD [BC] Stat 12/16/17 02:58 RT Aerosol Therapy [RC] ASDIRECTED
[2017-12-16 03:41] VITALS: BP 135/66
== END 2017-12-16 03:40 | disposition home or self-care (01) ==
LOC: DL.ED 02:01
DX: J18.9 Pneumonia, unspecified organism (principal); E87.5 Hyperkalemia; R11.2 Nausea with vomiting, unspecified; R19.7 Diarrhea, unspecified; I12.9 Hypertensive chronic kidney disease with stage 1 through stage 4 chronic kidney disease, or unspecified chronic kidney disease; E78.00 Pure hypercholesterolemia, unspecified; E11.21 Type 2 diabetes mellitus with diabetic nephropathy; E11.22 Type 2 diabetes mellitus with diabetic chronic kidney disease; E66.9 Obesity, unspecified; Z79.4 Long term (current) use of insulin; Z79.899 Other long term (current) drug therapy; Z87.891 Personal history of nicotine dependence; Z79.82 Long term (current) use of aspirin
CPT/HCPCS: 36415; 71045; 80053; 81001; 82150; 83605; 83690; 84484; 85025; 86140; 87040; 96374; 99285; A9270; J2405; J7620

== ENCOUNTER 2018-02-16 03:29 | Inpatient (IN) | payer OTHER ==
[2018-02-16] MEDS ORDERED: Sodium Chloride 0.9% 1,000 ML IV ONE (03:38)
[2018-02-16] MEDS ORDERED: Acetaminophen 325 MG Tab PO ONE (03:55)
[2018-02-16 04:14] LABS: CHLORIDE,CL 103 mmol/L (101-111); SODIUM,NA 137 mmol/L (135-145)
[2018-02-16] MEDS ORDERED: Albuterol 0.083% 2.5 MG/3 ML Neb Soln NEB ONE (04:17)
--- NOTE | 2018-02-16 04:26 | EDM.PDOC ---
ED HPI GENERAL MEDICAL PROBLEM - General Chief Complaint: Gastrointestinal Problem Stated Complaint: VOMITING, SHAKING [id number] Time Seen by Provider: 02/16/18 04:00 Source of Information: Reports: Patient, Family History Limitations: Reports: No Limitations - History of Present Illness INITIAL COMMENTS - FREE TEXT/NARRATIVE: ED with spuse, report waking with shakes and body aches. Left ear pain yesterday , otherwise no complaints when went to bed. Similar episodes in November with pneumonia. Diabetic, Blood sugar at home 200 [employer]. Denies cough, GI upset, or weakness. Hip Pain Score (Numeric/FACES): 2 - Related Data Allergies Allergy/AdvReac Type Severity Reaction Status Date / Time No Known Allergies Allergy Verified 02/16/18 04:42 Home Meds: Home Meds Acetaminophen [Tylenol] 650 mg PO TID PRN 04/11/17 [History] Aspirin [Ecotrin] 81 mg PO DAILY 04/11/17 [History] Gabapentin [Neurontin] 200 mg PO BID 04/11/17 [History] Insulin Aspart [NovoLOG] 18 unit SUBCUT BIDAC 04/11/17 [History] Insulin Detemir [Levemir] 34 unit SQ BID 04/11/17 [History] Metoprolol Tartrate 50 mg PO BID 07/25/17 [History] NIFEdipine [Nifedipine ER] 30 mg PO .NOON 07/25/17 [History] Omeprazole 20 mg PO DAILY 11/26/17 [History] atorvaSTATin Calcium [Atorvastatin Calcium] 40 mg PO .NOON 11/26/17 [History] Cephalexin [Keflex] 500 mg PO QID 10 Days capsule 11/29/17 [Rx] Bumetanide 1 tab PO BID 02/16/18 [History] Past Medical History HEENT History: Reports: Impaired Vision Other HEENT History: wears glasses Cardiovascular History: Reports: High Cholesterol, Hypertension Respiratory History: Reports: Intubation, Previous Genitourinary History: Reports: Chronic Renal Insuffiency, Diabetic Nephropathy Musculoskeletal History: Reports: Osteoarthritis Neurological History: Reports: CVA, Neuropathy, Diabetic Psychiatric History: Reports: None Endocrine/Metabolic History: Reports: Diabetes, Type II, Obesity/BMI 30+ Hematologic History: Reports: None Immunologic History: Reports: None Oncologic (Cancer) History: Reports: None Dermatologic History: Reports: None - Infectious Disease History Infectious Disease History: Reports: None - Past Surgical History GI Surgical History: Reports: Cholecystectomy Musculoskeletal Surgical History: Reports: Hip Replacement Social & Family History - Family History Family Medical History: Noncontributory - Tobacco Use Smoking Status *Q: Never Smoker - Caffeine Use Caffeine Use: Reports: Coffee, Soda - Recreational Drug Use Recreational Drug Use: No - Living Situation & Occupation Living situation: Reports: with Family Occupation: Disabled ED ROS GENERAL - Review of Systems Review Of Systems: See Below Constitutional: Reports: Fever, Chills HEENT: Reports: Ear Pain (left) Respiratory: Reports: Wheezing. Denies: Shortness of Breath, Cough Cardiovascular: Reports: No Symptoms Endocrine: Reports: High Glucose GI/Abdominal: Reports: No Symptoms Skin: Reports: No Symptoms Neurological: Reports: No Symptoms ED EXAM, GENERAL - Physical Exam Exam: See Below Exam Limited By: No Limitations General Appearance: Alert, Mild Distress, Obese Eye Exam: Bilateral Eye: EOMI Ears: Normal External Exam, Other (mild erythem left canal Tm dull, right WNL) Nose: Normal Inspection Throat/Mouth: Normal Inspection Head: Atraumatic, Normocephalic Neck: Normal Inspection Respiratory/Chest: No Respiratory Distress, Wheezing. No: Rales, Rhonchi Cardiovascular: Normal Peripheral Pulses GI/Abdominal: Normal Bowel Sounds, Soft Extremities: Normal Inspection Neurological: Alert, Oriented, Normal Cognition Psychiatric: Normal Affect, Normal Mood Skin Exam: Warm, Intact, Normal Color, Other (moist) Course - Vital Signs Last Recorded V/S: Last Vital Signs Temp 99.9 F 02/16/18 06:18 Pulse 114 H 02/16/18 06:18 Resp 25 H 02/16/18 06:18 BP 114/52 L 02/16/18 06:18 Pulse Ox 96 02/16/18 06:18 - Orders/Labs/Meds Orders: Active Orders 24 hr Category Date Time Status Blood Glucose Check, Bedside [RC] ONETIME Care 02/16/18 03:38 Active EKG 12 Lead [EKG Documentation Completion] [RC] URGENT Care 02/16/18 04:21 Active RT Aerosol Therapy [RC] ASDIRECTED Care 02/16/18 04:17 Active CULTURE BLOOD [BC] Stat Lab 02/16/18 03:45 Received CULTURE BLOOD [BC] Stat Lab 02/16/18 04:25 Received UA W/MICROSCOPIC [URIN] Stat Lab 02/16/18 04:52 Ordered Blood Culture x2 Reflex Set [OM.PC] Stat Oth 02/16/18 03:38 Ordered Labs: Laboratory Tests 02/16/18 02/16/18 02/16/18 Range/Units 03:45 03:45 03:45 WBC (5.0-10.0) 10^3/uL RBC (4.6-6.2) 10^6/uL Hgb (14.0-18.0) g/dL Hct (40.0-54.0) % MCV (80-100) fL MCH (27.0-34.0) pg MCHC (33.0-35.0) g/dL Plt Count (150-450) 10^3/uL Neut % (Auto) (42.2-75.2) % Lymph % (Auto) (20.5-50.1) % [place] % (Auto) (2-8) % Eos % (Auto) (1.0-3.0) % Baso % (Auto) (0.0-1.0) % PT 9.0 (9.0-12.0) SEC INR 0.9 (0.9-1.2) Sodium 137 (135-145) mmol/L Potassium 4.6 (3.6-5.0) mmol/L Chloride 103 (101-111) mmol/L Carbon Dioxide 26.0 (21.0-31.0) mmol/L Anion Gap 12.6 BUN 34 H (7-18) mg/dL Creatinine 2.1 H (0.6-1.3) mg/dL Est Cr Clr Drug Dosing 39.59 mL/min Estimated GFR (MDRD) 33 BUN/Creatinine Ratio 16.19 Glucose 228 H (74-105) mg/dL POC Glucose (70-105) mg/dl Lactic Acid 1.2 (0.5-2.2) mmol/L Calcium 8.5 (8.4-10.2) mg/dl Total Bilirubin 0.4 (0.2-1.0) mg/dL AST 24 (10-42) IU/L ALT 27 (10-60) IU/L Alkaline Phosphatase 138 H (42-121) IU/L Troponin I < 0.02 (0.00-0.02) ng/ml B-Natriuretic Peptide (0-100) pg/ml Total Protein 7.9 (6.7-8.2) g/dl Albumin 3.5 (3.2-5.5) g/dl Globulin 4.4 Albumin/Globulin Ratio 0.80 Amylase 52 (28-100) U/L Lipase 32 (22-51) U/L Urine Color (YELLOW) Urine Appearance (CLEAR) Urine pH (5.0-9.0) Ur Specific [place] (1.005-1.030) Urine Protein (NEGATIVE) Urine Glucose (UA) (NEGATIVE) Urine Ketones (NEGATIVE) Urine Occult Blood (NEGATIVE) Urine Nitrite (NEGATIVE) Urine Bilirubin (NEGATIVE) Urine Urobilinogen (0.2-1.0) mg/dL Ur Leukocyte Esterase (NEGATIVE) Urine RBC /HPF Urine WBC (0-5/HPF) /HPF Ur Epithelial Cells /HPF Amorphous Sediment (0/HPF) /HPF Urine Bacteria (0-FEW/HPF) /HPF Urine Mucus /LPF 02/16/18 02/16/18 02/16/18 Range/Units 03:45 03:46 03:58 WBC 16.7 H (5.0-10.0) 10^3/uL RBC 5.51 (4.6-6.2) 10^6/uL Hgb 14.4 (14.0-18.0) g/dL Hct 46.1 (40.0-54.0) % MCV 83.7 D (80-100) fL MCH 26.1 L (27.0-34.0) pg MCHC 31.2 L (33.0-35.0) g/dL Plt Count 174 (150-450) 10^3/uL Neut % (Auto) 80.9 H (42.2-75.2) % Lymph % (Auto) 10.6 L (20.5-50.1) % [place] % (Auto) 5.6 (2-8) % Eos % (Auto) 2.8 (1.0-3.0) % Baso % (Auto) 0.1 (0.0-1.0) % PT (9.0-12.0) SEC INR (0.9-1.2) Sodium (135-145) mmol/L Potassium (3.6-5.0) mmol/L Chloride (101-111) mmol/L Carbon Dioxide (21.0-31.0) mmol/L Anion Gap BUN (7-18) mg/dL Creatinine (0.6-1.3) mg/dL Est Cr Clr Drug Dosing mL/min Estimated GFR (MDRD) BUN/Creatinine Ratio Glucose (74-105) mg/dL POC Glucose 197 H (70-105) mg/dl Lactic Acid (0.5-2.2) mmol/L Calcium (8.4-10.2) mg/dl Total Bilirubin (0.2-1.0) mg/dL AST (10-42) IU/L ALT (10-60) IU/L Alkaline Phosphatase (42-121) IU/L Troponin I (0.00-0.02) ng/ml B-Natriuretic Peptide 47 (0-100) pg/ml Total Protein (6.7-8.2) g/dl Albumin (3.2-5.5) g/dl Globulin Albumin/Globulin Ratio Amylase (28-100) U/L Lipase (22-51) U/L Urine Color (YELLOW) Urine Appearance (CLEAR) Urine pH (5.0-9.0) Ur Specific [place] (1.005-1.030) Urine Protein (NEGATIVE) Urine Glucose (UA) (NEGATIVE) Urine Ketones (NEGATIVE) Urine Occult Blood (NEGATIVE) Urine Nitrite (NEGATIVE) Urine Bilirubin (NEGATIVE) Urine Urobilinogen (0.2-1.0) mg/dL Ur Leukocyte Esterase (NEGATIVE) Urine RBC /HPF Urine WBC (0-5/HPF) /HPF Ur Epithelial Cells /HPF Amorphous Sediment (0/HPF) /HPF Urine Bacteria (0-FEW/HPF) /HPF Urine Mucus /LPF 02/16/18 Range/Units 04:52 WBC (5.0-10.0) 10^3/uL RBC (4.6-6.2) 10^6/uL Hgb (14.0-18.0) g/dL Hct (40.0-54.0) % MCV (80-100) fL MCH (27.0-34.0) pg MCHC (33.0-35.0) g/dL Plt Count (150-450) 10^3/uL Neut % (Auto) (42.2-75.2) % Lymph % (Auto) (20.5-50.1) % [place] % (Auto) (2-8) % Eos % (Auto) (1.0-3.0) % Baso % (Auto) (0.0-1.0) % PT (9.0-12.0) SEC INR (0.9-1.2) Sodium (135-145) mmol/L Potassium (3.6-5.0) mmol/L Chloride (101-111) mmol/L Carbon Dioxide (21.0-31.0) mmol/L Anion Gap BUN (7-18) mg/dL Creatinine (0.6-1.3) mg/dL Est Cr Clr Drug Dosing mL/min Estimated GFR (MDRD) BUN/Creatinine Ratio Glucose (74-105) mg/dL POC Glucose (70-105) mg/dl Lactic Acid (0.5-2.2) mmol/L Calcium (8.4-10.2) mg/dl Total Bilirubin (0.2-1.0) mg/dL AST (10-42) IU/L ALT (10-60) IU/L Alkaline Phosphatase (42-121) IU/L Troponin I (0.00-0.02) ng/ml B-Natriuretic Peptide (0-100) pg/ml Total Protein (6.7-8.2) g/dl Albumin (3.2-5.5) g/dl Globulin Albumin/Globulin Ratio Amylase (28-100) U/L Lipase (22-51) U/L Urine Color Yellow (YELLOW) Urine Appearance Clear (CLEAR) Urine pH 5.5 (5.0-9.0) Ur Specific [place] 1.020 (1.005-1.030) Urine Protein >=300 H (NEGATIVE) Urine Glucose (UA) 100 H (NEGATIVE) Urine Ketones Negative (NEGATIVE) Urine Occult Blood Moderate H (NEGATIVE) Urine Nitrite Negative (NEGATIVE) Urine Bilirubin Negative (NEGATIVE) Urine Urobilinogen 0.2 (0.2-1.0) mg/dL Ur Leukocyte Esterase Negative (NEGATIVE) Urine RBC 5-10 H /HPF Urine WBC 0-5 (0-5/HPF) /HPF Ur Epithelial Cells Few /HPF Amorphous Sediment Few (0/HPF) /HPF Urine Bacteria Few (0-FEW/HPF) /HPF Urine Mucus Few H /LPF Meds: Medications Discontinued Medications Generic Name Dose Route Start Last Admin Trade Name Freq PRN Reason Stop Dose Admin Acetaminophen 650 mg 02/16/18 03:55 02/16/18 04:05 Tylenol PO 02/16/18 03:56 650 mg NOW ONE Administration Albuterol 2.5 mg 02/16/18 04:17 02/16/18 04:20 Proventil Neb Soln NEB 02/16/18 04:18 2.5 mg ONETIME ONE Administration Sodium Chloride 1,000 mls @ 500 mls/hr 02/16/18 03:38 02/16/18 04:02 Normal Saline IV 02/16/18 05:37 500 mls/hr .BOLUS ONE Administration Levofloxacin/Dextrose 750 mg/ 150 mls @ 100 mls/hr 02/16/18 04:28 02/16/18 04 :38 Premix IV 02/16/18 05:57 100 mls/hr ONETIME ONE Administration Lorazepam 1 mg 02/16/18 04:28 02/16/18 04:37 Ativan IVPUSH 02/16/18 04:29 1 mg ONETIME ONE Administration Metoprolol Tartrate 5 mg 02/16/18 05:39 02/16/18 05:46 Lopressor IVPUSH 02/16/18 05:40 5 mg ONETIME ONE Administration - Re-Assessments/Exams Free Text/Narrative Re-Assessment/Exam: 02/16/18 06:[address] Bynum, accepting of patient at [facility] for acute admission. Departure - Departure Time of Disposition: 06:22 Disposition: Admitted As Inpatient 66 Condition: Good Clinical Impression: IDDM (insulin dependent diabetes mellitus), Hypoxia RML pneumonia Qualifiers: Pneumonia type: due to unspecified organism Qualified Code(s): J18.1 - Lobar pneumonia, unspecified organism CKD (chronic kidney disease) Qualifiers: Chronic kidney disease stage: unspecified stage Qualified Code(s): N18.9 - Chronic kidney disease, unspecified - Discharge Information Forms: ED Department Discharge - My Orders Last 24 Hours: My Active Orders 02/16/18 03:38 Blood Glucose Check, Bedside [RC] ONETIME Blood Culture x2 Reflex Set [OM.PC] Stat 02/16/18 03:45 CULTURE BLOOD [BC] Stat 02/16/18 04:17 RT Aerosol Therapy [RC] ASDIRECTED 02/16/18 04:21 EKG 12 Lead [EKG Documentation Completion] [RC] URGENT 05/23/18 04:25 CULTURE BLOOD [BC] Stat 02/16/18 04:52 UA W/MICROSCOPIC [URIN] Stat - Assessment/Plan Last 24 Hours: My Active Orders 02/16/18 03:38 Blood Glucose Check, Bedside [] ONETIME Blood Culture x2 Reflex Set [OM.PC] Stat 02/16/18 03:45 CULTURE BLOOD [BC] Stat 02/16/18 04:17 RT Aerosol Therapy [] ASDIRECTED 02/16/18 04:21 EKG 12 Lead [EKG Documentation Completion] [RC] URGENT 02/16/18 04:25 CULTURE BLOOD [BC] Stat 02/16/18 04:52 UA W/MICROSCOPIC [URIN] Stat
[2018-02-16] MEDS ORDERED: LORazepam 2 MG/ML Syringe IVPUSH ONE (04:28)
[2018-02-16] MEDS ORDERED: Levofloxacin/Dextrose 5%-Water 750 MG in Premix Bag 1 BAG IV ONE (04:28)
[2018-02-16] MEDS ORDERED: Metoprolol Tartrate 5 MG/5 ML SDV IVPUSH ONE (05:39)
[2018-02-16] MEDS ORDERED: Sodium Chloride 0.9% 1,000 ML IV SCH ×3 (08:00→18:30)
[2018-02-16] MEDS ORDERED: Azithromycin 500 MG in Sodium Chloride 0.9% 250 ML IV SCH (08:00)
[2018-02-16] MEDS ORDERED: cefTRIAXone 1 GM Vial IVPUSH SCH (09:00)
--- NOTE | 2018-02-16 10:21 | PCM.HP ---
H&P History of Present Illness - General Date of Service: 02/16/18 Admit Problem/Dx: Admission Diagnosis/Problem Admission Diagnosis/Problem Pneumonia due to organism Source of Information: Patient History Limitations: Reports: No Limitations - History of Present Illness Initial Comments - Free Text/Narative: The patient presented to the emergency room with complaint of shaking chills that started last night about midnight. Initially was mild but significant it got worse over time. He was having associated generalized body malaise and generalized body ache. He was febrile with temperature up to 38. Patient was also having associated headache. [place] nauseous but no vomiting. No chest pain and no shortness of breath. Denies significant cough or wheezing. He does have a reddish area on the left lower extremity. It is tender to touch. Quality: Reports: Ache Severity: Moderate Associated Symptoms: Reports: No Other Symptoms Hip Pain Score (Numeric/FACES): 2 - Related Data Allergies/Adverse Reactions: Allergies Allergy/AdvReac Type Severity Reaction Status Date / Time No Known Allergies Allergy Verified 02/16/18 07:22 Home Medications: Home Meds Acetaminophen [Tylenol] 650 mg PO TID PRN 04/11/17 [History] Aspirin [Ecotrin] 81 mg PO DAILY 04/11/17 [History] Gabapentin [Neurontin] 200 mg PO BID 04/11/17 [History] Insulin Aspart [NovoLOG] 18 unit SUBCUT BIDAC 04/11/17 [History] Insulin Detemir [Levemir] 34 unit SQ BID 04/11/17 [History] Metoprolol Tartrate 50 mg PO BID 07/25/17 [History] NIFEdipine [Nifedipine ER] 30 mg PO .NOON 07/25/17 [History] Omeprazole 20 mg PO DAILY 11/26/17 [History] atorvaSTATin Calcium [Atorvastatin Calcium] 40 mg PO .NOON 11/26/17 [History] Bumetanide 1 mg PO BID 02/16/18 [History] Past Medical History HEENT History: Reports: Impaired Vision Other HEENT History: wears glasses Cardiovascular History: Reports: High Cholesterol, Hypertension Respiratory History: Reports: Intubation, Previous Gastrointestinal History: Reports: None Genitourinary History: Reports: Chronic Renal Insuffiency, Diabetic Nephropathy Musculoskeletal History: Reports: Osteoarthritis Neurological History: Reports: CVA, Neuropathy, Diabetic Other Neuro History: may 2017 - CVA, no deficits Psychiatric History: Reports: None Endocrine/Metabolic History: Reports: Diabetes, Type II, Obesity/BMI 30+ Hematologic History: Reports: None Immunologic History: Reports: None Oncologic (Cancer) History: Reports: None Dermatologic History: Reports: None - Infectious Disease History Infectious Disease History: Reports: None - Past Surgical History GI Surgical History: Reports: Cholecystectomy Musculoskeletal Surgical History: Reports: Hip Replacement Social & Family History - Family History Family Medical History: Noncontributory - Tobacco Use Smoking Status *Q: Never Smoker Years of Tobacco use: 20 Packs/Tins Daily: 1 Used Tobacco, but Quit: Yes Month/Year Tobacco Last Used: august 2003 Second Hand Smoke Exposure: No - Caffeine Use Caffeine Use: Reports: Coffee, Soda - Recreational Drug Use Recreational Drug Use: No - Living Situation & Occupation Living situation: Reports: with Family Occupation: Disabled H&P Review of Systems - Review of Systems: Review Of Systems: See Below General: Reports: Fever, Chills HEENT: Reports: No Symptoms Pulmonary: Reports: No Symptoms Cardiovascular: Reports: No Symptoms Gastrointestinal: Reports: No Symptoms Musculoskeletal: Reports: No Symptoms Skin: Reports: Change in Color (Left lower leg) Neurological: Reports: No Symptoms Hematologic/Lymphatic: Reports: No Symptoms Exam - Exam Exam: See Below - Vital Signs Vital Signs: Last Vital Signs Temp 38.3 C H 02/16/18 07:42 Pulse 83 02/16/18 07:42 Resp 27 H 02/16/18 07:42 BP 150/79 H 02/16/18 07:42 Pulse Ox 96 02/16/18 07:42 Weight: 159.528 kg - Exam General: Alert, Oriented, Cooperative HEENT: PERRLA, Hearing Intact, Mucosa Moist & [place], Nares Patent, Normal Nasal Septum, Posterior Pharynx Clear, Conjunctiva Clear, EOMI, EACs Clear, TMs Clear Neck: Supple, Trachea Midline, 2 Lungs: Decreased Breath Sounds Cardiovascular: Tachycardia GI/Abdominal Exam: Normal Bowel Sounds, Soft, Non-Tender Extremities: Increased Warmth, Redness (Left lower leg) Neuro Extensive - Mental Status: Alert, Oriented x3 Psychiatric: Alert, Normal Affect - Patient Data Lab Results Last 24 hrs: Laboratory Results - last 24 hr 02/16/18 02/16/18 02/16/18 Range/Units 03:45 03:45 03:45 WBC (5.0-10.0) 10^3/uL RBC (4.6-6.2) 10^6/uL Hgb (14.0-18.0) g/dL Hct (40.0-54.0) % MCV (80-100) fL MCH (27.0-34.0) pg MCHC (33.0-35.0) g/dL Plt Count (150-450) 10^3/uL Neut % (Auto) (42.2-75.2) % Lymph % (Auto) (20.5-50.1) % [place] % (Auto) (2-8) % Eos % (Auto) (1.0-3.0) % Baso % (Auto) (0.0-1.0) % PT 9.0 (9.0-12.0) SEC INR 0.9 (0.9-1.2) Sodium 137 (135-145) mmol/L Potassium 4.6 (3.6-5.0) mmol/L Chloride 103 (101-111) mmol/L Carbon Dioxide 26.0 (21.0-31.0) mmol/L Anion Gap 12.6 BUN 34 H (7-18) mg/dL Creatinine 2.1 H (0.6-1.3) mg/dL Est Cr Clr Drug Dosing 39.59 mL/min Estimated GFR (MDRD) 33 BUN/Creatinine Ratio 16.19 Glucose 228 H (74-105) mg/dL POC Glucose (70-105) mg/dl Lactic Acid 1.2 (0.5-2.2) mmol/L Calcium 8.5 (8.4-10.2) mg/dl Total Bilirubin 0.4 (0.2-1.0) mg/dL AST 24 (10-42) IU/L ALT 27 (10-60) IU/L Alkaline Phosphatase 138 H (42-121) IU/L Troponin I < 0.02 (0.00-0.02) ng/ml B-Natriuretic Peptide (0-100) pg/ml Total Protein 7.9 (6.7-8.2) g/dl Albumin 3.5 (3.2-5.5) g/dl Globulin 4.4 Albumin/Globulin Ratio 0.80 Amylase 52 (28-100) U/L Lipase 32 (22-51) U/L Urine Color (YELLOW) Urine Appearance (CLEAR) Urine pH (5.0-9.0) Ur Specific [place] (1.005-1.030) Urine Protein (NEGATIVE) Urine Glucose (UA) (NEGATIVE) Urine Ketones (NEGATIVE) Urine Occult Blood (NEGATIVE) Urine Nitrite (NEGATIVE) Urine Bilirubin (NEGATIVE) Urine Urobilinogen (0.2-1.0) mg/dL Ur Leukocyte Esterase (NEGATIVE) Urine RBC /HPF Urine WBC (0-5/HPF) /HPF Ur Epithelial Cells /HPF Amorphous Sediment (0/HPF) /HPF Urine Bacteria (0-FEW/HPF) /HPF Urine Mucus /LPF 02/16/18 02/16/18 02/16/18 Range/Units 03:45 03:46 03:58 WBC 16.7 H (5.0-10.0) 10^3/uL RBC 5.51 (4.6-6.2) 10^6/uL Hgb 14.4 (14.0-18.0) g/dL Hct 46.1 (40.0-54.0) % MCV 83.7 D (80-100) fL MCH 26.1 L (27.0-34.0) pg MCHC 31.2 L (33.0-35.0) g/dL Plt Count 174 (150-450) 10^3/uL Neut % (Auto) 80.9 H (42.2-75.2) % Lymph % (Auto) 10.6 L (20.5-50.1) % [place] % (Auto) 5.6 (2-8) % Eos % (Auto) 2.8 (1.0-3.0) % Baso % (Auto) 0.1 (0.0-1.0) % PT (9.0-12.0) SEC INR (0.9-1.2) Sodium (135-145) mmol/L Potassium (3.6-5.0) mmol/L Chloride (101-111) mmol/L Carbon Dioxide (21.0-31.0) mmol/L Anion Gap BUN (7-18) mg/dL Creatinine (0.6-1.3) mg/dL Est Cr Clr Drug Dosing mL/min Estimated GFR (MDRD) BUN/Creatinine Ratio Glucose (74-105) mg/dL POC Glucose 197 H (70-105) mg/dl Lactic Acid (0.5-2.2) mmol/L Calcium (8.4-10.2) mg/dl Total Bilirubin (0.2-1.0) mg/dL AST (10-42) IU/L ALT (10-60) IU/L Alkaline Phosphatase (42-121) IU/L Troponin I (0.00-0.02) ng/ml B-Natriuretic Peptide 47 (0-100) pg/ml Total Protein (6.7-8.2) g/dl Albumin (3.2-5.5) g/dl Globulin Albumin/Globulin Ratio Amylase (28-100) U/L Lipase (22-51) U/L Urine Color (YELLOW) Urine Appearance (CLEAR) Urine pH (5.0-9.0) Ur Specific [place] (1.005-1.030) Urine Protein (NEGATIVE) Urine Glucose (UA) (NEGATIVE) Urine Ketones (NEGATIVE) Urine Occult Blood (NEGATIVE) Urine Nitrite (NEGATIVE) Urine Bilirubin (NEGATIVE) Urine Urobilinogen (0.2-1.0) mg/dL Ur Leukocyte Esterase (NEGATIVE) Urine RBC /HPF Urine WBC (0-5/HPF) /HPF Ur Epithelial Cells /HPF Amorphous Sediment (0/HPF) /HPF Urine Bacteria (0-FEW/HPF) /HPF Urine Mucus /LPF 02/16/18 02/16/18 Range/Units 04:52 07:55 WBC (5.0-10.0) 10^3/uL RBC (4.6-6.2) 10^6/uL Hgb (14.0-18.0) g/dL Hct (40.0-54.0) % MCV (80-100) fL MCH (27.0-34.0) pg MCHC (33.0-35.0) g/dL Plt Count (150-450) 10^3/uL Neut % (Auto) (42.2-75.2) % Lymph % (Auto) (20.5-50.1) % [place] % (Auto) (2-8) % Eos % (Auto) (1.0-3.0) % Baso % (Auto) (0.0-1.0) % PT (9.0-12.0) SEC INR (0.9-1.2) Sodium (135-145) mmol/L Potassium (3.6-5.0) mmol/L Chloride (101-111) mmol/L Carbon Dioxide (21.0-31.0) mmol/L Anion Gap BUN (7-18) mg/dL Creatinine (0.6-1.3) mg/dL Est Cr Clr Drug Dosing mL/min Estimated GFR (MDRD) BUN/Creatinine Ratio Glucose (74-105) mg/dL POC Glucose 237 H (70-105) mg/dl Lactic Acid (0.5-2.2) mmol/L Calcium (8.4-10.2) mg/dl Total Bilirubin (0.2-1.0) mg/dL AST (10-42) IU/L ALT (10-60) IU/L Alkaline Phosphatase (42-121) IU/L Troponin I (0.00-0.02) ng/ml B-Natriuretic Peptide (0-100) pg/ml Total Protein (6.7-8.2) g/dl Albumin (3.2-5.5) g/dl Globulin Albumin/Globulin Ratio Amylase (28-100) U/L Lipase (22-51) U/L Urine Color Yellow (YELLOW) Urine Appearance Clear (CLEAR) Urine pH 5.5 (5.0-9.0) Ur Specific [place] 1.020 (1.005-1.030) Urine Protein >=300 H (NEGATIVE) Urine Glucose (UA) 100 H (NEGATIVE) Urine Ketones Negative (NEGATIVE) Urine Occult Blood Moderate H (NEGATIVE) Urine Nitrite Negative (NEGATIVE) Urine Bilirubin Negative (NEGATIVE) Urine Urobilinogen 0.2 (0.2-1.0) mg/dL Ur Leukocyte Esterase Negative (NEGATIVE) Urine RBC 5-10 H /HPF Urine WBC 0-5 (0-5/HPF) /HPF Ur Epithelial Cells Few /HPF Amorphous Sediment Few (0/HPF) /HPF Urine Bacteria Few (0-FEW/HPF) /HPF Urine Mucus Few H /LPF Result Diagrams: 02/16/18 03:46 02/16/18 03:45 Александр Results Last 24 hrs: Microbiology 02/16/18 04:08 Influenza Type A Antigen Screen - Final Nasal, Left NEGATIVE INFLUENZA A VIRUS AG Influenza Type B Antigen Screen - Final NEGATIVE INFLUENZA B VIRUS AG Problem List Initiated/Reviewed/Updated: Yes Orders Last 24hrs: Active Orders 24 hr Category Date Time Status Patient Status [ADT] Routine ADT 02/16/18 07:42 Active Accu Check [Blood Glucose Check, Bedside] [] TIDAC Care 02/16/18 10:07 Active Blood Glucose Check, Bedside [RC] ONETIME Care 02/16/18 03:38 Active EKG 12 Lead [EKG Documentation Completion] [RC] URGENT Care 02/16/18 04:21 Active Oxygen Therapy [RC] PRN Care 02/16/18 07:42 Active RT Aerosol Therapy [RC] ASDIRECTED Care 02/16/18 04:17 Active VTE/DVT Education [RC] PER UNIT ROUTINE Care 02/16/18 07:42 Active Vital Signs [RC] Q4H Care 02/16/18 07:42 Active Consistent Carbohydrate Diet [DIET] Diet 02/16/18 Breakfast Active BASIC METABOLIC PANEL,BMP [CHEM] AM Lab 02/17/18 05:11 Ordered CBC WITH AUTO DIFF [HEME] AM Lab 02/17/18 05:11 Ordered CULTURE BLOOD [BC] Stat Lab 02/16/18 03:45 Received CULTURE BLOOD [BC] Stat Lab 02/16/18 04:25 Received CULTURE SPUTUM + SMEAR [RM] Stat Lab 02/16/18 07:42 Ordered UA W/MICROSCOPIC [URIN] Stat Lab 02/16/18 04:52 Ordered Acetaminophen [Tylenol] Med 02/16/18 10:05 Ordered 650 mg PO TID PRN Aspirin [Halfprin] Med 02/17/18 09:00 Ordered 81 mg PO DAILY Azithromycin [Zithromax] 500 mg Med 02/16/18 08:00 Active Sodium Chloride 0.9% [Normal Saline] 250 ml IV Q24H Bumetanide [Bumex] Med 02/16/18 21:00 Ordered 1 mg PO BID Gabapentin [Neurontin] Med 02/16/18 21:00 Ordered 200 mg PO BID Heparin Sodium Med 02/16/18 14:00 Active 5,000 units SUBCUT Q8HR Insulin Aspart [NovoLOG] Med 02/16/18 17:00 Ordered 18 unit SUBCUT BIDAC Insulin Detemir Med 02/16/18 21:00 Ordered 34 unit SQ BID Metoprolol Tartrate [Lopressor] Med 02/16/18 21:00 Ordered 50 mg PO BID NIFEdipine [Nifedipine ER] Med 02/16/18 10:15 Ordered 30 mg PO .NOON Omeprazole [Omeprazole] Med 02/17/18 09:00 Ordered 20 mg PO DAILY Sodium Chloride 0.9% [Normal Saline] 1,000 ml Med 02/16/18 08:00 Active IV ASDIRECTED atorvaSTATin Calcium [Atorvastatin Calcium] Med 02/16/18 10:15 Ordered 40 mg PO .NOON cefTRIAXone [Rocephin] Med 02/16/18 09:00 Active 1 gm IVPUSH Q24H Blood Culture x2 Reflex Set [OM.PC] Stat Oth 02/16/18 03:38 Ordered Resuscitation Status Routine Resus Stat 02/16/18 07:42 Ordered Medication Orders Acetaminophen (Tylenol) 650 mg PO TID PRN PRN Reason: Pain Aspirin (Halfprin) 81 mg PO DAILY [facility] Bumetanide (Bumex) 1 mg PO BID [facility] Ceftriaxone Sodium (Rocephin) 1 gm IVPUSH Q24H [facility] Last Admin: 02/16/18 09:38 Dose: 1 gm Gabapentin (Neurontin) 200 mg PO BID [facility] Heparin Sodium (Porcine) (Heparin Sodium) 5,000 units SUBCUT Q8HR [facility] Azithromycin 500 mg/ Sodium (Chloride) 250 mls @ 250 mls/hr IV Q24H [facility] Last Infusion: 02/16/18 09:37 Dose: 250 mls/hr Admin: 02/16/18 08:17 Dose: 250 mls/hr Sodium Chloride (Normal Saline) 1,000 mls @ 100 mls/hr IV ASDIRECTED [facility] Last Admin: 02/16/18 04:45 Dose: 100 mls/hr Insulin Aspart (Novolog) 18 unit SUBCUT BIDAC [facility] Metoprolol Tartrate (Lopressor) 50 mg PO BID [facility] Non-Formulary Medication (Atorvastatin Calcium [Atorvastatin Calcium]) 40 mg PO .NOON [facility] Non-Formulary Medication (Insulin Detemir) 34 unit SQ BID [facility] Non-Formulary Medication (Nifedipine [Nifedipine Er]) 30 mg PO .NOON [facility] Non-Formulary Medication (Omeprazole [Omeprazole]) 20 mg PO DAILY [facility] Assessment/Plan Comment:: #. Sepsis This is secondary to cellulitis of the left l #. Cellulitis of the left leg Patient has erythema and warmth of the left lower leg. #Diabetes mellitus type 2 Patient is on insulin therapy #Chronic kidney disease Baseline creatinine is at 2.1 #.Hypertension Blood pressure is mostly within acceptable limits. He was elevated initially #. Hypoxia Patient was stated to have hypoxia Normal supplemental oxygen 2 L/m. He appears fluid overloaded Plan: Admit patient to medical floor Start patient on intravenous cefazolin 2 g every 8 hours Monitor blood sugar before meals and at bedtime Obtain repeat basic metabolic panel Obtain repeat complete blood count Cultures obtained. Await results Provide lymphedema wraps to the left lower extremity Close hemodynamic monitoring
--- NOTE | 2018-02-16 13:01 | EKG ---
02/16/2018 - AVTAR BETANCUR - TIME: 4:29 a.m. FINDINGS: EKG shows sinus tachycardia, rate of 131 per minute. [facility] /[id number]
[2018-02-16] MEDS: Bumetanide 1 MG Tab PO SCH (13:13)
[2018-02-16] MEDS: NIFEdipine 30 MG Tab.ER PO SCH (13:14)
[2018-02-16] MEDS: atorvaSTATin 20 MG Tab PO SCH (13:14)
[2018-02-16] MEDS: Heparin Sodium 5,000 Units/ML Vial SUBCUT SCH ×2 (13:16→22:19)
[2018-02-16] MEDS ORDERED: Insulin Aspart 100 Units/ML 3 ML Pen SUBCUT SCH (17:00)
[2018-02-16] MEDS: Acetaminophen 325 MG Tab PO PRN (17:03)
[2018-02-16] MEDS: ceFAZolin 1 GM Vial IVPUSH SCH (18:49)
[2018-02-16] MEDS: Metoprolol Tartrate 50 MG Tab PO SCH (22:17)
[2018-02-16] MEDS: Gabapentin 100 MG Cap PO SCH (22:17)
[2018-02-16] MEDS: Insulin Detemir 100 Units/ML 3 ML Pen SUBCUT SCH (22:20)
[2018-02-17] MEDS: Acetaminophen 325 MG Tab PO PRN (00:05)
[2018-02-17] MEDS: Sodium Chloride 0.9% 10 ML Syringe FLUSH PRN ×2 (03:00→03:14)
[2018-02-17] MEDS: ceFAZolin 1 GM Vial IVPUSH SCH ×2 (03:01→10:26)
[2018-02-17] MEDS: Heparin Sodium 5,000 Units/ML Vial SUBCUT SCH (05:36)
[2018-02-17] MEDS ORDERED: Omeprazole 20 MG Cap.CR PO SCH (06:00)
[2018-02-17] MEDS ORDERED: Insulin Aspart 100 Units/ML 3 ML Pen SUBCUT SCH (07:00)
[2018-02-17] MEDS: Insulin Detemir 100 Units/ML 3 ML Pen SUBCUT SCH (08:47)
[2018-02-17] MEDS ORDERED: Aspirin 81 MG Tab.EC PO SCH (09:00)
[2018-02-17] MEDS: Metoprolol Tartrate 50 MG Tab PO SCH (09:35)
[2018-02-17] MEDS: Gabapentin 100 MG Cap PO SCH (09:37)
[2018-02-17] MEDS: Bumetanide 1 MG Tab PO SCH (09:38)
[2018-02-17 11:27] VITALS: BP 123/71
--- NOTE | 2018-02-17 11:38 | PCM.DCSUM1 ---
Discharge Summary - Hospital Course Free Text/Narrative:: Rashad is a pleasant 58 yo M with PMH of DM type 2 on insulin, hypertension, obesity who was admitted with left lower extremity cellulitis. He was treated with antibiotics and discharge on Keflex to complete a week of antibiotics. Follow up with PCP - Discharge Data Discharge Date: 02/17/18 Discharge Disposition: Home, Self-Care 01 Condition: Good - Discharge Diagnosis/Problem(s) (1) Cellulitis SNOMED Code(s): 172979093 ICD Code: L03.90 - CELLULITIS, UNSPECIFIED Status: Acute Current Visit: Yes (2) Cellulitis SNOMED Code(s): 531767788 ICD Code: L03.90 - CELLULITIS, UNSPECIFIED Status: Acute Current Visit: Yes - Patient Instructions Diet: Heart Healthy Diet, Diabetic Diet Activity: Elevate Extremity Showering/Bathing: May Shower Wound/Incision Care: Keep Operative Site/Wound Site Clean and Dry - Discharge Plan Prescriptions/Med Rec: Cephalexin [Keflex] 500 mg PO Q8H 7 Days #21 cap Home Medications: Home Meds Acetaminophen [Tylenol] 650 mg PO TID PRN 04/11/17 [History] Aspirin [Ecotrin] 81 mg PO DAILY 04/11/17 [History] Gabapentin [Neurontin] 200 mg PO BID 04/11/17 [History] Insulin Aspart [NovoLOG] 18 unit SUBCUT BIDAC 04/11/17 [History] Insulin Detemir [Levemir] 34 unit SQ BID 04/11/17 [History] Metoprolol Tartrate 50 mg PO BID 07/25/17 [History] NIFEdipine [Nifedipine ER] 30 mg PO .NOON 07/25/17 [History] Omeprazole 20 mg PO DAILY 11/26/17 [History] atorvaSTATin Calcium [Atorvastatin Calcium] 40 mg PO .NOON 11/26/17 [History] Bumetanide 1 mg PO BID 02/16/18 [History] Cephalexin [Keflex] 500 mg PO Q8H 7 Days #21 cap 02/17/18 [Rx] Patient Handouts: Cellulitis, Adult, [id number] Referrals: PCP,Unobtain [Ordering Only Provider] - - Discharge Summary/Plan Comment DC Time >30 min.: Yes - Patient Data Vitals - Most Recent: Last Vital Signs Temp 37.5 C 02/17/18 11:25 Pulse 75 02/17/18 11:25 Resp 20 02/17/18 11:25 BP 123/71 02/17/18 11:25 Pulse Ox 98 02/17/18 11:25 Weight - Most Recent: 159.528 kg I&O - Last 24 hours: Intake & Output 02/16/18 02/17/18 02/17/18 22:59 06:59 14:59 Intake Total 200 1766 500 Balance 200 1766 500 Lab Results - Last 24 hrs: Laboratory Results - last 24 hr 02/16/18 02/17/18 02/17/18 Range/Units 16:37 06:29 06:29 WBC 10.2 H (5.0-10.0) 10^3/uL RBC 5.31 (4.6-6.2) 10^6/uL Hgb 13.9 L (14.0-18.0) g/dL Hct 43.7 (40.0-54.0) % MCV 82.3 (80-100) fL MCH 26.2 L (27.0-34.0) pg MCHC 31.8 L (33.0-35.0) g/dL Plt Count 148 L (150-450) 10^3/uL Neut % (Auto) 74.9 (42.2-75.2) % Lymph % (Auto) 16.3 L (20.5-50.1) % [place] % (Auto) 8.5 H (2-8) % Eos % (Auto) 0.1 L (1.0-3.0) % Baso % (Auto) 0.2 (0.0-1.0) % Sodium 134 L (135-145) mmol/L Potassium 4.2 (3.6-5.0) mmol/L Chloride 103 (101-111) mmol/L Carbon Dioxide 24.0 (21.0-31.0) mmol/L Anion Gap 11.2 BUN 39 H (7-18) mg/dL Creatinine 2.3 H (0.6-1.3) mg/dL Est Cr Clr Drug Dosing 36.15 mL/min Estimated GFR (MDRD) 29 Glucose 226 H (74-105) mg/dL POC Glucose 329 H (70-105) mg/dl Calcium 7.8 L (8.4-10.2) mg/dl 02/17/18 Range/Units 07:52 WBC (5.0-10.0) 10^3/uL RBC (4.6-6.2) 10^6/uL Hgb (14.0-18.0) g/dL Hct (40.0-54.0) % MCV (80-100) fL MCH (27.0-34.0) pg MCHC (33.0-35.0) g/dL Plt Count (150-450) 10^3/uL Neut % (Auto) (42.2-75.2) % Lymph % (Auto) (20.5-50.1) % [place] % (Auto) (2-8) % Eos % (Auto) (1.0-3.0) % Baso % (Auto) (0.0-1.0) % Sodium (135-145) mmol/L Potassium (3.6-5.0) mmol/L Chloride (101-111) mmol/L Carbon Dioxide (21.0-31.0) mmol/L Anion Gap BUN (7-18) mg/dL Creatinine (0.6-1.3) mg/dL Est Cr Clr Drug Dosing mL/min Estimated GFR (MDRD) Glucose (74-105) mg/dL POC Glucose 226 H (70-105) mg/dl Calcium (8.4-10.2) mg/dl JASON Results - Last 24 hrs: Microbiology 02/16/18 04:25 Aerobic Blood Culture - Preliminary Blood - Venous - Lab Draw NO GROWTH AFTER 1 DAY Anaerobic Blood Culture - Preliminary NO GROWTH AFTER 1 DAY 02/16/18 03:45 Aerobic Blood Culture - Preliminary Blood - Venous NO GROWTH AFTER 1 DAY Anaerobic Blood Culture - Preliminary NO GROWTH AFTER 1 DAY Med Orders - Current: Current Medications Acetaminophen (Tylenol) 650 mg PO TID PRN PRN Reason: Pain Last Admin: 02/17/18 00:05 Dose: 650 mg Aspirin (Halfprin) 81 mg PO DAILY [facility] Last Admin: 02/17/18 09:39 Dose: 81 mg Atorvastatin Calcium (Lipitor) 40 mg PO DAILY@1200 [facility] Last Admin: 02/16/18 13:14 Dose: 40 mg Bumetanide (Bumex) 1 mg PO BIDDIURETIC [facility] Last Admin: 02/17/18 09:38 Dose: 1 mg Cefazolin Sodium (Ancef) 2 gm IVPUSH Q8H [facility] Last Admin: 02/17/18 10:26 Dose: 2 gm Gabapentin (Neurontin) 200 mg PO BID [facility] Last Admin: 02/17/18 09:37 Dose: 200 mg Heparin Sodium (Porcine) (Heparin Sodium) 5,000 units SUBCUT Q8HR [facility] Last Admin: 02/17/18 05:36 Dose: 5,000 units Sodium Chloride (Normal Saline) 1,000 mls @ 100 mls/hr IV ASDIRECTED [facility] Last Admin: 02/16/18 23:51 Dose: 100 mls/hr Insulin Aspart (Novolog) 18 unit SUBCUT BID@0700,1500 [facility] Last Admin: 02/17/18 08:52 Dose: 18 units Insulin Detemir (Levemir) 34 unit SUBCUT BID [facility] Last Admin: 02/17/18 08:47 Dose: 34 units Metoprolol Tartrate (Lopressor) 50 mg PO BID [facility] Last Admin: 02/17/18 09:35 Dose: 50 mg Nifedipine (Procardia Xl) 30 mg PO DAILY@1200 [facility] Last Admin: 02/16/18 13:14 Dose: 30 mg Omeprazole (Omeprazole) 20 mg PO ACBRK [facility] Last Admin: 02/17/18 05:36 Dose: 20 mg Sodium Chloride (Saline Flush) 10 ml FLUSH ASDIRECTED PRN PRN Reason: Keep Vein Open Last Admin: 02/17/18 03:14 Dose: 10 ml Discontinued Medications Acetaminophen (Tylenol) 650 mg PO NOW ONE Stop: 02/16/18 03:56 Last Admin: 02/16/18 04:05 Dose: 650 mg Albuterol (Proventil Neb Soln) 2.5 mg NEB ONETIME ONE Stop: 02/16/18 04:18 Last Admin: 02/16/18 04:20 Dose: 2.5 mg Ceftriaxone Sodium (Rocephin) 1 gm IVPUSH Q24H [facility] Last Admin: 02/16/18 09:38 Dose: 1 gm Sodium Chloride (Normal Saline) 1,000 mls @ 500 mls/hr IV .BOLUS ONE Stop: 02/16/18 05:37 Last Admin: 02/16/18 04:02 Dose: 500 mls/hr Levofloxacin/Dextrose 750 mg/ (Premix) 150 mls @ 100 mls/hr IV ONETIME ONE Stop: 02/16/18 05:57 Last Infusion: 02/16/18 07:39 Dose: Infused Azithromycin 500 mg/ Sodium (Chloride) 250 mls @ 250 mls/hr IV Q24H [facility] Last Infusion: 02/16/18 09:37 Dose: Infused Sodium Chloride (Normal Saline) 1,000 mls @ 100 mls/hr IV ASDIRECTED DL Last Infusion: 02/16/18 09:15 Dose: 50 mls/hr Sodium Chloride (Normal Saline) 1,000 mls @ 50 mls/hr IV ASDIRECTED DL Insulin Aspart (Novolog) 18 unit SUBCUT BIDAC [facility] Last Admin: 02/16/18 17:04 Dose: 18 units Lorazepam (Ativan) 1 mg IVPUSH ONETIME ONE Stop: 02/16/18 04:29 Last Admin: 02/16/18 04:37 Dose: 1 mg Metoprolol Tartrate (Lopressor) 5 mg IVPUSH ONETIME ONE Stop: 02/16/18 05:40 Last Admin: 02/16/18 05:46 Dose: 5 mg
[2018-02-17] MEDS: atorvaSTATin 20 MG Tab PO SCH (14:09)
[2018-02-17] MEDS: NIFEdipine 30 MG Tab.ER PO SCH (14:10)
== END 2018-02-17 12:30 | disposition home or self-care (01) | DRG 603 ==
LOC: DL.ED 03:29 → UNDOADMIN 06:34 → DL.MS 06:34
PROVIDERS: ADMIT Hospitalist; ATTEND Hospitalist
DX: L03.116 Cellulitis of left lower limb (principal); Z68.43 Body mass index [BMI] 50.0-59.9, adult; E11.22 Type 2 diabetes mellitus with diabetic chronic kidney disease; I12.9 Hypertensive chronic kidney disease with stage 1 through stage 4 chronic kidney disease, or unspecified chronic kidney disease; N18.9 Chronic kidney disease, unspecified; R09.02 Hypoxemia; E66.9 Obesity, unspecified; E78.00 Pure hypercholesterolemia, unspecified; M19.90 Unspecified osteoarthritis, unspecified site; E11.21 Type 2 diabetes mellitus with diabetic nephropathy; E11.40 Type 2 diabetes mellitus with diabetic neuropathy, unspecified; Z79.899 Other long term (current) drug therapy; Z79.82 Long term (current) use of aspirin; Z79.4 Long term (current) use of insulin; Z86.73 Personal history of transient ischemic attack (TIA), and cerebral infarction without residual deficits; Z87.891 Personal history of nicotine dependence
CPT/HCPCS: 36415; 71045; 80048; 80053; 81001; 82150; 82962; 83605; 83690; 83880; 84484; 85025; 85610; 87040; 87804; 93005; 96361; 96365; 96366; 96375; 97165-GO; 99285; A9270-GY; J0456; J0690; J0696; J1644; J1815-GY; J1956; J2060; J3490; J7030; J7050; J7620-GY

== ENCOUNTER 2021-03-28 09:14 | Emergency (ER) | payer BC, OTHER ==
[2021-03-28] MEDS ORDERED: Sodium Chloride 0.9% 10 ML Syringe FLUSH PRN (09:35)
--- NOTE | 2021-03-28 09:41 | EDM.PDOC ---
ED HPI GENERAL MEDICAL PROBLEM - General Chief Complaint: General Stated Complaint: DIALYSIS Time Seen by Provider: 03/28/21 09:38 Source of Information: Reports: Patient History Limitations: Reports: No Limitations - History of Present Illness INITIAL COMMENTS - FREE TEXT/NARRATIVE: The patient is an unfortunate 61-year-old morbidly obese male who presents emerged part today with complaint of fatigue and generalized weakness. The patient reports he was in his normal state of health until approximately 1 hour prior to arrival when he was 1 hour into his dialysis for today and reports that he started feeling weakness and fatigue the nurses noted that he was bradycardic at that time with heart rate of 48 so they stopped dialysis at the 2-hour ginny and sent the patient to the emergency department for further evaluation. The patient denies any chest pain, no fever, no chills, no nausea, no vomiting. He just reports that he is weak all over and that his heart rate was low. The patient did take his insulin this morning and is on dialysis is Accu-Chek upon arrival to the emergency department was 186 - Related Data Allergies Allergy/AdvReac Type Severity Reaction Status Date / Time No Known Allergies Allergy Verified 04/18/19 19:35 Home Meds: Home Meds Acetaminophen [Tylenol] 650 mg PO TID PRN 04/11/17 [History] Aspirin [Ecotrin EC] 81 mg PO DAILY 04/11/17 [History] Gabapentin [Neurontin] 200 mg PO BID 04/11/17 [History] Insulin Aspart [NovoLOG] 18 unit SUBCUT BIDAC 04/11/17 [History] Insulin Detemir [Levemir] 34 unit SQ BID 04/11/17 [History] Metoprolol Tartrate 50 mg PO BID 07/25/17 [History] NIFEdipine [Nifedipine ER] 30 mg PO .NOON 07/25/17 [History] Omeprazole 20 mg PO DAILY 11/26/17 [History] atorvaSTATin Calcium [Atorvastatin Calcium] 40 mg PO .NOON 11/26/17 [History] Bumetanide 1 mg PO BID 02/16/18 [History] cephALEXin [Keflex] 500 mg PO Q8H 7 Days #21 cap 02/17/18 [Rx] Past Medical History HEENT History: Reports: Impaired Vision Other HEENT History: wears glasses Cardiovascular History: Reports: High Cholesterol, Hypertension Respiratory History: Reports: Intubation, Previous Gastrointestinal History: Reports: None Genitourinary History: Reports: Chronic Renal Insuffiency, Diabetic Nephropathy Musculoskeletal History: Reports: Osteoarthritis Neurological History: Reports: CVA, Neuropathy, Diabetic Other Neuro History: may 2017 - CVA, no deficits Psychiatric History: Reports: None Endocrine/Metabolic History: Reports: Diabetes, Type II, Obesity/BMI 30+ Hematologic History: Reports: None Immunologic History: Reports: None Oncologic (Cancer) History: Reports: None Dermatologic History: Reports: None - Infectious Disease History Infectious Disease History: Reports: None - Past Surgical History GI Surgical History: Reports: Cholecystectomy Musculoskeletal Surgical History: Reports: Hip Replacement Social & Family History - Family History Family Medical History: No Pertinent Family History - Caffeine Use Caffeine Use: Reports: Coffee, Soda - Living Situation & Occupation Living situation: Reports: with Family Occupation: Disabled ED ROS GENERAL - Review of Systems Review Of Systems: Comprehensive ROS is negative, except as noted in HPI. Constitutional: Reports: Fatigue. Denies: Fever, Chills Cardiovascular: Denies: Chest Pain, Blood Pressure Problem Neurological: Reports: Weakness ED EXAM, GENERAL - Physical Exam Exam: See Below General Appearance: Alert, WD/WN, Mild Distress (Mild) Head: Atraumatic, Normocephalic Neck: Normal Inspection Respiratory/Chest: No Respiratory Distress, Lungs Clear, Normal Breath Sounds, No Accessory Muscle Use, Chest Non-Tender Cardiovascular: Normal Peripheral Pulses, Regular Rate, Rhythm, No Edema, No Gallop, No JVD, No Murmur, No Rub GI/Abdominal: Normal Bowel Sounds, Soft, Non-Tender, No Distention Back Exam: Normal Inspection, Full Range of Motion Extremities: Normal Inspection, Other (Left AV graft positive thrill positive bruit) Skin Exam: Warm, Dry, Intact, No Rash #1 Interpretation EKG Date: 03/28/21 Time: 09:56 Rhythm: NSR [place]: Normal P-Wave: Present QRS: Normal ST-T: Normal QT: Normal (No acute ischemic changes) EKG Interpretation Comments: PVCs Course - Vital Signs Text/Narrative:: Patient is hypotensive with a systolic of 82, will bolus 10:48 AM, orthostatic vital signs show a positive tilt, will bolus 500 more mL Post bolus the patient no longer tilts with orthostatics, he reports that he is feeling better, we will discharge patient home have patient follow-up outpatient with PCP and encourage dialysis on Wednesday, will have patient return to the emergency department for any worsening condition Last Recorded V/S: Last Vital Signs Temp 97.1 F 03/28/21 09:47 Pulse 81 03/28/21 09:47 Resp 20 03/28/21 09:47 BP 115/59 L 03/28/21 09:47 Pulse Ox 93 L 03/28/21 09:47 Orthostatic Blood Pressure [ 135/98 Standing] Orthostatic Blood Pressure [ 103/60 Sitting] Orthostatic Blood Pressure [ 110/64 Supine] - Orders/Labs/Meds Orders: Active Orders 24 hr Category Date Time Status Blood Glucose Check, Bedside [] ONETIME Care 03/28/21 10:22 Active EKG Documentation Completion [] STAT Care 03/28/21 09:35 Active Orthostatic Vital Signs [] ASDIRECTED Care 03/28/21 10:43 Active Peripheral IV Care [RC] . DIRECTED Care 03/28/21 09:36 Active Sodium Chloride 0.9% [Normal Saline] 500 ml Med 03/28/21 10:15 Active IV .BOLUS Sodium Chloride 0.9% [Saline Flush] Med 03/28/21 09:35 Active 10 ml FLUSH ASDIRECTED PRN Peripheral IV Insertion Adult [OM.PC] Routine Oth 03/28/21 09:35 Ordered Saline Lock Insert [OM.PC] Stat Oth 03/28/21 09:35 Ordered Medication Orders Sodium Chloride (Normal Saline) 500 mls @ 9,999 mls/hr IV .BOLUS DL Last Admin: 03/28/21 10:08 Dose: 9,999 mls/hr Documented by: SUJATA Sodium Chloride (Sodium Chloride 0.9% 10 Ml Syringe) 10 ml FLUSH ASDIRECTED PRN PRN Reason: Keep Vein Open Last Admin: 03/28/21 10:53 Dose: 10 ml Documented by: JANNY Labs: Laboratory Tests 03/28/21 03/28/21 03/28/21 Range/Units 09:34 09:40 09:40 WBC 10.4 H (5.0-10.0) 10^3/uL RBC 5.41 (4.6-6.2) 10^6/uL Hgb 14.5 (14.0-18.0) g/dL Hct 46.1 (40.0-54.0) % MCV 85.2 (80-100) fL MCH 26.8 L (27.0-34.0) pg MCHC 31.5 L (33.0-35.0) g/dL Plt Count 231 (150-450) 10^3/uL Neut % (Auto) 70.8 (42.2-75.2) % Lymph % (Auto) 16.7 L (20.5-50.1) % [place] % (Auto) 7.8 (2-8) % Eos % (Auto) 4.4 H (1.0-3.0) % Baso % (Auto) 0.3 (0.0-1.0) % Sodium 138 (136-145) mmol/L Potassium 4.5 (3.5-5.1) mmol/L Chloride 101 (98-107) mmol/L Carbon Dioxide 29 (21-32) mmol/L Anion Gap 12.5 (7-13) mEq/L BUN 34 H (7-18) mg/dL Creatinine 4.52 H (0.70-1.30) mg/dL Est Cr Clr Drug Dosing 17.16 mL/min Estimated GFR (MDRD) 13 BUN/Creatinine Ratio 7.5 (No establ ref range) Glucose 201 H (70-99) mg/dL POC Glucose 186 H (70-99) mg/dL Calcium 7.9 L (8.5-10.1) mg/dL Total Bilirubin 0.4 (0.2-1.0) mg/dL AST 18 (15-37) U/L ALT 28 (16-63) U/L Alkaline Phosphatase 156 H (46-116) U/L Troponin I High Sens 11 (<=76) pg/mL Total Protein 7.8 (6.4-8.2) g/dL Albumin 2.9 L (3.4-5.0) g/dL Globulin 4.9 Albumin/Globulin Ratio 0.59 TSH, Ultra Sensitive 1.82 (0.36-3.74) uIU/mL Meds: Medications Generic Name Dose Route Start Last Admin Trade Name Freq PRN Reason Stop Dose Admin Sodium Chloride 500 mls @ 9,999 mls/hr 03/28/21 10:15 03/28/21 10:08 Normal Saline IV 9,999 mls/hr .BOLUS DL Administration Sodium Chloride 10 ml 03/28/21 09:35 03/28/21 10:53 Sodium Chloride 0.9% 10 Ml Syringe FLUSH 10 ml ASDIRECTED PRN Administration Keep Vein Open Discontinued Medications Generic Name Dose Route Start Last Admin Trade Name Toñoq PRN Reason Stop Dose Admin Acetaminophen 650 mg 03/28/21 10:48 03/28/21 10:53 Acetaminophen 325 Mg Tab PO 03/28/21 10:49 650 mg NOW ONE Administration Sodium Chloride 500 mls @ 999 mls/hr 03/28/21 10:47 03/28/21 10:52 Normal Saline IV 03/28/21 11:17 999 mls/hr .BOLUS ONE Administration Departure - Departure Time of Disposition: 11:25 Disposition: Home, Self-Care 01 Clinical Impression: Dehydration, Orthostatic hypotension - Discharge Information *PRESCRIPTION DRUG MONITORING PROGRAM REVIEWED*: No *COPY OF PRESCRIPTION DRUG MONITORING REPORT IN PATIENT NANETTE: No Instructions: Dehydration, Adult, [id number], Orthostatic Hypotension Forms: ED Department Discharge Sepsis Event Note (ED) - Focused Exam Vital Signs: Vital Signs Temp Pulse Resp BP Pulse Ox 03/28/21 09:47 97.1 F 81 20 115/59 L 93 L - My Orders Last 24 Hours: My Active Orders 03/28/21 09:35 EKG Documentation Completion [RC] STAT Sodium Chloride 0.9% [Saline Flush] 10 ml FLUSH ASDIRECTED PRN Peripheral IV Insertion Adult [OM.PC] Routine Saline Lock Insert [OM.PC] Stat 03/28/21 09:36 Peripheral IV Care [RC] . DIRECTED 03/28/21 10:15 Sodium Chloride 0.9% [Normal Saline] 500 ml IV .BOLUS 03/28/21 10:22 Blood Glucose Check, Bedside [RC] ONETIME 03/28/21 10:43 Orthostatic Vital Signs [RC] ASDIRECTED - Assessment/Plan Last 24 Hours: My Active Orders 03/28/21 09:35 EKG Documentation Completion [RC] STAT Sodium Chloride 0.9% [Saline Flush] 10 ml FLUSH ASDIRECTED PRN Peripheral IV Insertion Adult [OM.PC] Routine Saline Lock Insert [OM.PC] Stat 03/28/21 09:36 Peripheral IV Care [RC] . DIRECTED 03/28/21 10:15 Sodium Chloride 0.9% [Normal Saline] 500 ml IV .BOLUS 03/28/21 10:22 Blood Glucose Check, Bedside [RC] ONETIME 03/28/21 10:43 Orthostatic Vital Signs [RC] ASDIRECTED
[2021-03-28 09:47] VITALS: BP 115/59; PULSE 81
[2021-03-28] MEDS ORDERED: Sodium Chloride 0.9% 500 ML IV SCH (10:15)
[2021-03-28 10:19] LABS: ANION GAP 12.5 mEq/L (7-13)
--- NOTE | 2021-03-28 10:29 | CR ---
PROCEDURE INFORMATION: Exam: XR Chest Exam date and time: 03/28/2021 10:07 AM Age: 61 years old Clinical indication: Other: Fatigue TECHNIQUE: Imaging protocol: XR of the chest. Views: 1 view. COMPARISON: CR Chest 2V 04/18/2019 7:49 PM FINDINGS: Lungs: Minor atelectasis is present at the bases. The lungs are otherwise clear. Pleural spaces: Unremarkable. No pleural effusion. No pneumothorax. Heart/Mediastinum: The cardiomediastinal silhouette is stable in appearance allowing for differences in positioning. Diaphragm: There is considerable new elevation of the right hemidiaphragm. Bones/joints: Unremarkable. IMPRESSION: Considerable elevation of the right hemidiaphragm, new as compared with 04/18/2019, significance uncertain.
[2021-03-28] MEDS ORDERED: Sodium Chloride 0.9% 500 ML IV ONE (10:47)
[2021-03-28] MEDS ORDERED: Acetaminophen 325 MG Tab PO ONE (10:48)
== END 2021-03-28 11:37 | disposition home or self-care (01) ==
LOC: DL.ED 09:14
DX: E86.0 Dehydration (principal); I95.1 Orthostatic hypotension; I12.9 Hypertensive chronic kidney disease with stage 1 through stage 4 chronic kidney disease, or unspecified chronic kidney disease; E11.22 Type 2 diabetes mellitus with diabetic chronic kidney disease; N18.9 Chronic kidney disease, unspecified; E78.00 Pure hypercholesterolemia, unspecified; E11.40 Type 2 diabetes mellitus with diabetic neuropathy, unspecified; E11.21 Type 2 diabetes mellitus with diabetic nephropathy; M19.90 Unspecified osteoarthritis, unspecified site; E66.01 Morbid (severe) obesity due to excess calories; Z68.43 Body mass index [BMI] 50.0-59.9, adult; Z90.49 Acquired absence of other specified parts of digestive tract; Z79.4 Long term (current) use of insulin; Z79.82 Long term (current) use of aspirin; Z79.899 Other long term (current) drug therapy
CPT/HCPCS: 36415; 71045; 80053; 82947; 84443; 84484; 85025; 93005; 99285; A9270; J7030; J7040

== ENCOUNTER 2021-12-05 21:26 | Emergency (ER) | payer BC, OTHER ==
[2021-12-05] MEDS ORDERED: Sodium Chloride 0.9% 10 ML Syringe FLUSH PRN (21:39)
[2021-12-05 22:32] LABS: ANION GAP 11.8 mEq/L (7-13); CHLORIDE,CL 98 mmol/L (98-107); SODIUM,NA 132 mmol/L (136-145)
[2021-12-05 23:09] VITALS: BP 121/86; PULSE 115
[2021-12-05 23:18] LABS: CORONAVIRUS COVID-19 NAA NEGATIVE (NEGATIVE)
[2021-12-05] MEDS ORDERED: Aspirin 81 MG Tab.Chew PO ONE (23:26)
[2021-12-05] MEDS ORDERED: Heparin Sodium 5,000 Units/ML Vial IVPUSH ONE (23:28)
[2021-12-05] MEDS ORDERED: Heparin Sodium/0.45% NaCl 25,000 UNITS/500 ML BAG IV SCH (23:30)
== END 2021-12-06 00:24 ==
LOC: DL.ED 21:26
DX: I21.4 Non-ST elevation (NSTEMI) myocardial infarction (principal); R50.9 Fever, unspecified; E78.00 Pure hypercholesterolemia, unspecified; E11.40 Type 2 diabetes mellitus with diabetic neuropathy, unspecified; I12.9 Hypertensive chronic kidney disease with stage 1 through stage 4 chronic kidney disease, or unspecified chronic kidney disease; N18.9 Chronic kidney disease, unspecified; E66.9 Obesity, unspecified; Z68.30 Body mass index [BMI] 30.0-30.9, adult; Z79.82 Long term (current) use of aspirin; Z79.899 Other long term (current) drug therapy; Z79.4 Long term (current) use of insulin; Z20.822 Contact with and (suspected) exposure to COVID-19
CPT/HCPCS: 0240U; 36415; 71045; 80053; 81001; 83605; 83735; 83880; 84484; 85025; 86140; 87040; 87081; 87430; 93005; 93010; 96374; 99285; 99285-25; A9270-GY; J1644; J3490

== ENCOUNTER 2023-02-10 07:25 | Day surgery (SDC) | payer OTHER ==
[2023-02-10] MEDS ORDERED: Tropicamide 1% Ophth Soln 15 ML Bottle EYELF ONE (07:30)
[2023-02-10] MEDS ORDERED: Timolol Maleate 0.5% Ophth Soln 5 ML Bottle EYELF ONE (07:30)
[2023-02-10] MEDS ORDERED: Moxifloxacin 0.5% Ophth Soln 3 ML Bottle EYELF ONE (07:30)
[2023-02-10] MEDS ORDERED: Acetaminophen/Codeine 300-30 MG Tab PO PRN (07:30)
[2023-02-10] MEDS ORDERED: Cataract Ophth Solution EYELF ONE (07:30)
[2023-02-10] MEDS ORDERED: Povidone-Iodine 5% Sterile Ophth Soln 30 ML Bottle EYELF ONE ×2 (07:30→08:57)
[2023-02-10] MEDS ORDERED: Proparacaine 0.5% Ophth Soln 15 ML Bottle EYELF ONE ×2 (07:30→08:57)
[2023-02-10] MEDS ORDERED: Acetaminophen 325 MG Tab PO PRN (07:30)
[2023-02-10] MEDS ORDERED: Ondansetron 4 MG/2 ML SDV IVPUSH PRN (07:30)
[2023-02-10] MEDS ORDERED: Sodium Chloride 0.9% 10 ML Syringe FLUSH PRN (07:30)
[2023-02-10] MEDS ORDERED: Phenylephrine 10% Ophth Soln 5 ML Bot EYELF PRN (07:30)
[2023-02-10] MEDS ORDERED: Lidocaine 1% 30 ML SDV ONE (08:59)
[2023-02-10] MEDS ORDERED: Balanced Salt Solution Ophth Irrig 500 ML Bottle IOCULAR ONE (09:00)
[2023-02-10] MEDS ORDERED: Vancomycin 500 MG SDV EYELF ONE (09:01)
[2023-02-10] MEDS ORDERED: Chondroitin Sulfate/Hyaluronate Sodium Ophth Inj 0.75 ML Syringe EYELF ONE (09:02)
[2023-02-10] MEDS ORDERED: Apraclonidine 0.5% Ophth Soln 5 ML Bot EYELF ONE (09:12)
[2023-02-10] MEDS ORDERED: Dexamethasone/Neomycin/Polymyxin B Ophth Oint 3.5 GM Tube EYELF ONE (09:13)
[2023-02-10] MEDS ORDERED: Diclofenac Sodium 0.1% Ophth Soln 5 ML Bottle EYELF ONE (09:13)
[2023-02-10 09:44] VITALS: BP 157/87; PULSE 77
== END 2023-02-10 09:37 | disposition home or self-care (01) ==
LOC: DL.SDS 07:25
PROVIDERS: ATTEND Ophthalmology
DX: E11.36 Type 2 diabetes mellitus with diabetic cataract (principal); H25.812 Combined forms of age-related cataract, left eye; E11.319 Type 2 diabetes mellitus with unspecified diabetic retinopathy without macular edema; E78.5 Hyperlipidemia, unspecified; N40.0 Benign prostatic hyperplasia without lower urinary tract symptoms; K21.9 Gastro-esophageal reflux disease without esophagitis; G47.33 Obstructive sleep apnea (adult) (pediatric); I25.10 Atherosclerotic heart disease of native coronary artery without angina pectoris; I12.9 Hypertensive chronic kidney disease with stage 1 through stage 4 chronic kidney disease, or unspecified chronic kidney disease; E11.22 Type 2 diabetes mellitus with diabetic chronic kidney disease; N18.5 Chronic kidney disease, stage 5; Z86.73 Personal history of transient ischemic attack (TIA), and cerebral infarction without residual deficits; E66.9 Obesity, unspecified; Z68.35 Body mass index [BMI] 35.0-35.9, adult; Z96.643 Presence of artificial hip joint, bilateral; Z90.49 Acquired absence of other specified parts of digestive tract; Z79.4 Long term (current) use of insulin; Z99.2 Dependence on renal dialysis; Z79.899 Other long term (current) drug therapy
CPT/HCPCS: 66984; A9270; C1780; J3370; J3490

== ENCOUNTER 2023-02-24 08:07 | Day surgery (SDC) | payer OTHER ==
[2023-02-24] MEDS ORDERED: Timolol Maleate 0.5% Ophth Soln 5 ML Bottle EYERT ONE (08:30)
[2023-02-24] MEDS ORDERED: Ondansetron 4 MG/2 ML SDV IVPUSH PRN (08:30)
[2023-02-24] MEDS ORDERED: Acetaminophen/Codeine 300-30 MG Tab PO PRN (08:30)
[2023-02-24] MEDS ORDERED: Cataract Ophth Solution EYERT ONE (08:30)
[2023-02-24] MEDS ORDERED: Tropicamide 1% Ophth Soln 15 ML Bottle EYERT ONE (08:30)
[2023-02-24] MEDS ORDERED: Moxifloxacin 0.5% Ophth Soln 3 ML Bottle EYERT ONE (08:30)
[2023-02-24] MEDS ORDERED: Acetaminophen 325 MG Tab PO PRN (08:30)
[2023-02-24] MEDS ORDERED: Proparacaine 0.5% Ophth Soln 15 ML Bottle EYERT ONE ×2 (08:30→09:30)
[2023-02-24] MEDS ORDERED: Povidone-Iodine 5% Sterile Ophth Soln 30 ML Bottle EYERT ONE ×2 (08:30→09:31)
[2023-02-24] MEDS ORDERED: Sodium Chloride 0.9% 10 ML Syringe FLUSH PRN (08:30)
[2023-02-24] MEDS ORDERED: Phenylephrine 10% Ophth Soln 5 ML Bot EYERT PRN (08:30)
[2023-02-24] MEDS ORDERED: Apraclonidine 0.5% Ophth Soln 5 ML Bot EYERT ONE (09:31)
[2023-02-24] MEDS ORDERED: Diclofenac Sodium 0.1% Ophth Soln 5 ML Bottle EYERT ONE (09:31)
[2023-02-24] MEDS ORDERED: Dexamethasone/Neomycin/Polymyxin B Ophth Oint 3.5 GM Tube EYERT ONE (09:32)
[2023-02-24] MEDS ORDERED: Vancomycin 500 MG SDV EYERT ONE (09:32)
[2023-02-24] MEDS ORDERED: Balanced Salt Solution Ophth Irrig 500 ML Bottle IOCULAR ONE (09:32)
[2023-02-24] MEDS ORDERED: Lidocaine 1% 30 ML SDV ONE (09:32)
[2023-02-24] MEDS ORDERED: Chondroitin Sulfate/Hyaluronate Sodium Ophth Inj 0.75 ML Syringe EYERT ONE (09:33)
[2023-02-24 10:11] VITALS: BP 135/75; PULSE 81
== END 2023-02-24 10:11 | disposition home or self-care (01) ==
LOC: DL.SDS 08:07
PROVIDERS: ATTEND Ophthalmology
DX: E11.36 Type 2 diabetes mellitus with diabetic cataract (principal); H25.811 Combined forms of age-related cataract, right eye; E11.40 Type 2 diabetes mellitus with diabetic neuropathy, unspecified; E11.319 Type 2 diabetes mellitus with unspecified diabetic retinopathy without macular edema; I10 Essential (primary) hypertension; I25.10 Atherosclerotic heart disease of native coronary artery without angina pectoris; G47.33 Obstructive sleep apnea (adult) (pediatric); K21.9 Gastro-esophageal reflux disease without esophagitis; E78.00 Pure hypercholesterolemia, unspecified; E66.01 Morbid (severe) obesity due to excess calories; Z79.4 Long term (current) use of insulin; Z98.890 Other specified postprocedural states; Z90.49 Acquired absence of other specified parts of digestive tract; Z79.899 Other long term (current) drug therapy; Z79.82 Long term (current) use of aspirin; Z68.43 Body mass index [BMI] 50.0-59.9, adult
CPT/HCPCS: 00142; A9270-GY; J3370; J3490; V2632

== ENCOUNTER 2024-03-18 19:42 | Emergency (ER) | payer MEDICARE, OTHER ==
[2024-03-18] MEDS ORDERED: Sodium Chloride 0.9% 500 ML IV SCH (20:15)
[2024-03-18 20:21] LABS: BASOPHILS PERCENT AUTO 0.4 % (0.0-1.0); EOSINOPHILS PERCENT AUTO 1.7 % (1.0-3.0); HEMOGLOBIN 13.5 g/dL (14.0-18.0); LYMPHOCYTES PERCENT AUTO 8.5 % (20.5-50.1); MEAN CORPUSCULAR HEMOGLOBIN 27.8 pg (27.0-34.0); MEAN CORPUSCULAR HGB CONC 31.4 g/dL (33.0-35.0); MEAN CORPUSCULAR VOLUME 88.5 fL (80-100); MONOCYTES PERCENT AUTO 6.4 % (2-8); PLATELET COUNT,PLT 207 10^3/uL (150-450); RED BLOOD CELL COUNT 4.86 10^6/uL (4.6-6.2); WHITE BLOOD CELL COUNT,WBC 10.2 10^3/uL (5.0-10.0)
[2024-03-18] MEDS: Acetaminophen 500 MG Tab PO ONE (20:37)
[2024-03-18] MEDS: Sodium Chloride 0.9% 10 ML Syringe FLUSH PRN (20:38)
[2024-03-18] MEDS: Sodium Chloride 0.9% 500 ML IV SCH (20:41)
[2024-03-18 20:46] LABS: ANION GAP 19.3 mEq/L (7-13); BILIRUBIN TOTAL 0.6 mg/dL (0.2-1.0); BUN/CREATININE RATIO 6.7 (No establ ref range); CALCIUM 8.5 mg/dL (8.5-10.1); EST CRCL DRUG DOSING (CG) 8.64 mL/min; MAGNESIUM 2.2 mg/dL (1.8-2.4); POTASSIUM,K 5.3 mmol/L (3.5-5.1); PROTEIN TOTAL,TP 8.7 g/dL (6.4-8.2)
[2024-03-18 20:48] LABS: A/G RATIO 0.53; CREATININE 8.92 mg/dL (0.70-1.30)
[2024-03-18 20:49] LABS: LACTIC ACID 2.1 mmol/L (0.4-2.0)
[2024-03-18] MEDS: Piperacillin/Tazobactam 2.25 GM in Sodium Chloride 0.9% 50 ML IV ONE (21:13)
[2024-03-18] MEDS: Lidocaine 2% Jelly 10 ML Urojet ONE (21:16)
[2024-03-18 23:16] LABS: APPEARANCE,URINE SLIGHTLY CLOUDY (CLEAR); BILIRUBIN,URINE NEGATIVE (NEGATIVE); COLOR,URINE YELLOW (YELLOW); GLUCOSE,URINE 100 (NEGATIVE); KETONES,URINE NEGATIVE (NEGATIVE); LEUKOCYTE ESTERASE,URINE NEGATIVE (NEGATIVE); NITRITE,URINE NEGATIVE (NEGATIVE); OCCULT BLOOD,URINE MODERATE (NEGATIVE); PROTEIN,URINE >=300 (NEGATIVE); UROBILINOGEN,URINE 0.2 mg/dL (0.2-1.0)
[2024-03-18 23:30] LABS: AMORPHOUS SEDIMENT,URINE FEW /HPF (NOT SEEN); BACTERIA,URINE FEW /HPF (0-FEW/HPF); EPITHELIAL CELLS,URINE FEW /HPF (NOT SEEN); GRANULAR CASTS,URINE FEW; MUCUS,URINE FEW /LPF (NOT SEEN); RBC,URINE 30-40 /HPF (0-5)
[2024-03-19 01:41] VITALS: BP 150/78; PULSE 105
== END 2024-03-19 02:08 ==
LOC: DL.ED 19:42
DX: E11.621 Type 2 diabetes mellitus with foot ulcer (principal); A41.9 Sepsis, unspecified organism; R65.20 Severe sepsis without septic shock; J96.21 Acute and chronic respiratory failure with hypoxia; L97.529 Non-pressure chronic ulcer of other part of left foot with unspecified severity; E87.5 Hyperkalemia; E66.01 Morbid (severe) obesity due to excess calories; Z68.43 Body mass index [BMI] 50.0-59.9, adult; I13.2 Hypertensive heart and chronic kidney disease with heart failure and with stage 5 chronic kidney disease, or end stage renal disease; I50.9 Heart failure, unspecified; E87.20 Acidosis, unspecified; N18.6 End stage renal disease; E11.40 Type 2 diabetes mellitus with diabetic neuropathy, unspecified; Z86.73 Personal history of transient ischemic attack (TIA), and cerebral infarction without residual deficits; E11.21 Type 2 diabetes mellitus with diabetic nephropathy; Z99.2 Dependence on renal dialysis; Z79.4 Long term (current) use of insulin; Z79.82 Long term (current) use of aspirin; Z79.899 Other long term (current) drug therapy; Z79.51 Long term (current) use of inhaled steroids
CPT/HCPCS: 36415; 71046; 80053; 81001; 83605; 83735; 85025; 87040; 87077; 87186; 93005; 96361; 96365; 99285-25; A9270-GY; J2543; J3490; J7030

== ENCOUNTER 2024-04-09 19:37 | Emergency (ER) | payer MEDICARE, OTHER ==
[2024-04-09 20:11] LABS: HEMATOCRIT 36.6 % (40.0-54.0); HEMOGLOBIN 11.3 g/dL (14.0-18.0); MEAN CORPUSCULAR HEMOGLOBIN 27.6 pg (27.0-34.0); MEAN CORPUSCULAR HGB CONC 30.9 g/dL (33.0-35.0); MEAN CORPUSCULAR VOLUME 89.5 fL (80-100); PLATELET COUNT,PLT 325 10^3/uL (150-450); RED BLOOD CELL COUNT 4.09 10^6/uL (4.6-6.2)
[2024-04-09 20:13] LABS: BASOPHILS PERCENT AUTO 0.1 % (0.0-1.0); EOSINOPHILS PERCENT AUTO 2.1 % (1.0-3.0); LYMPHOCYTES PERCENT AUTO 8.7 % (20.5-50.1); MONOCYTES PERCENT AUTO 6.8 % (2-8); NEUTROPHILS PERCENT AUTO 82.3 % (42.2-75.2)
[2024-04-09] MEDS: Piperacillin/Tazobactam 2.25 GM in Sodium Chloride 0.9% 50 ML IV ONE (20:33)
[2024-04-09] MEDS: Sodium Chloride 0.9% 500 ML IV ONE (20:34)
[2024-04-09 20:45] LABS: ALBUMIN 2.1 g/dL (3.4-5.0); ANION GAP 17.7 mEq/L (7-13); BILIRUBIN TOTAL 0.4 mg/dL (0.2-1.0); C-REACTIVE PROTEIN 17.05 ng/dL (<=0.50); CALCIUM 7.8 mg/dL (8.5-10.1); CREATININE 10.03 mg/dL (0.70-1.30); EST CRCL DRUG DOSING (CG) 7.68 mL/min; MAGNESIUM 1.7 mg/dL (1.8-2.4); POTASSIUM,K 4.7 mmol/L (3.5-5.1); PROTEIN TOTAL,TP 8.1 g/dL (6.4-8.2)
[2024-04-09 20:55] LABS: A/G RATIO 0.35
[2024-04-09 21:56] LABS: BAND PERCENT MAN 7 %; EOSINOPHILS PERCENT MAN 6 % (1-3); LYMPHOCYTES PERCENT MAN 4 % (20-50); MONOCYTES PERCENT MAN 6 % (2-8); SEG NEUTROPHILS PERCENT MAN 77 % (42-75)
[2024-04-09 22:30] VITALS: BP 134/72; PULSE 105
== END 2024-04-09 22:15 ==
LOC: DL.ED 19:37
DX: E11.621 Type 2 diabetes mellitus with foot ulcer (principal); L97.429 Non-pressure chronic ulcer of left heel and midfoot with unspecified severity; I13.2 Hypertensive heart and chronic kidney disease with heart failure and with stage 5 chronic kidney disease, or end stage renal disease; I50.9 Heart failure, unspecified; N18.6 End stage renal disease; E78.00 Pure hypercholesterolemia, unspecified; K21.9 Gastro-esophageal reflux disease without esophagitis; E11.21 Type 2 diabetes mellitus with diabetic nephropathy; E11.22 Type 2 diabetes mellitus with diabetic chronic kidney disease; Z79.82 Long term (current) use of aspirin; Z79.4 Long term (current) use of insulin; Z79.51 Long term (current) use of inhaled steroids; Z79.899 Other long term (current) drug therapy; Z86.73 Personal history of transient ischemic attack (TIA), and cerebral infarction without residual deficits; Z95.5 Presence of coronary angioplasty implant and graft; Z90.49 Acquired absence of other specified parts of digestive tract; Z99.2 Dependence on renal dialysis
CPT/HCPCS: 36415; 71045; 80053; 83605; 83735; 85025; 86140; 87040; 96365; 99285; J2543; J3490; J7040; 99284

== ENCOUNTER 2024-04-28 11:18 | Emergency (ER) | payer MEDICARE, OTHER ==
[2024-04-28 11:43] VITALS: PULSE 105
[2024-04-28] MEDS ORDERED: Sodium Chloride 0.9% 10 ML Syringe FLUSH PRN (11:45)
[2024-04-28 12:11] LABS: BASOPHILS PERCENT AUTO 0.2 % (0.0-1.0); EOSINOPHILS PERCENT AUTO 4.1 % (1.0-3.0); HEMATOCRIT 35.5 % (40.0-54.0); HEMOGLOBIN 10.8 g/dL (14.0-18.0); LYMPHOCYTES PERCENT AUTO 10.6 % (20.5-50.1); MEAN CORPUSCULAR HEMOGLOBIN 27.6 pg (27.0-34.0); MEAN CORPUSCULAR HGB CONC 30.4 g/dL (33.0-35.0); MEAN CORPUSCULAR VOLUME 90.8 fL (80-100); MONOCYTES PERCENT AUTO 7.8 % (2-8); NEUTROPHILS PERCENT AUTO 77.3 % (42.2-75.2); PLATELET COUNT,PLT 203 10^3/uL (150-450); RED BLOOD CELL COUNT 3.91 10^6/uL (4.6-6.2); WHITE BLOOD CELL COUNT,WBC 11.1 10^3/uL (5.0-10.0)
[2024-04-28 12:33] LABS: ALANINE AMINOTRANSFERASE,ALT 43 U/L (16-63); ALBUMIN 2.5 g/dL (3.4-5.0); ALKALINE PHOSPHATASE 253 U/L (46-116); ANION GAP 6.8 mEq/L (7-13); ASPARTATE AMNIOTRANSFERASE,AST 15 U/L (15-37); BILIRUBIN TOTAL 0.5 mg/dL (0.2-1.0); C-REACTIVE PROTEIN 9.19 ng/dL (<=0.50); CALCIUM 8.4 mg/dL (8.5-10.1); CARBON DIOXIDE,CO2 32 mmol/L (21-32); CHLORIDE,CL 99 mmol/L (98-107); CREATININE 4.05 mg/dL (0.70-1.30); GLUCOSE RANDOM 176 mg/dL (70-99); MAGNESIUM 1.5 mg/dL (1.8-2.4); POTASSIUM,K 3.8 mmol/L (3.5-5.1); PROTEIN TOTAL,TP 8.6 g/dL (6.4-8.2); SODIUM,NA 134 mmol/L (136-145)
[2024-04-28 12:36] LABS: LACTIC ACID 1.3 mmol/L (0.4-2.0)
[2024-04-28 12:47] LABS: BLOOD UREA NITROGEN,BUN 15 mg/dL (7-18); BUN/CREATININE RATIO 3.7 (No establ ref range)
[2024-04-28 12:52] LABS: A/G RATIO 0.41; ESTIMATED GFR 16 mL/min (>=60)
[2024-04-28 13:01] VITALS: BP 123/69
[2024-04-28] MEDS: Acetaminophen 500 MG Tab PO ONE (13:14)
[2024-04-28] MEDS: Bacitracin Oint 1 GM U/D Packet TOP ONE (13:15)
== END 2024-04-28 13:34 | disposition home or self-care (01) ==
LOC: DL.ED 11:18
DX: A04.72 Enterocolitis due to Clostridium difficile, not specified as recurrent (principal); I13.0 Hypertensive heart and chronic kidney disease with heart failure and stage 1 through stage 4 chronic kidney disease, or unspecified chronic kidney disease; N18.30 Chronic kidney disease, stage 3 unspecified; I50.9 Heart failure, unspecified; K21.9 Gastro-esophageal reflux disease without esophagitis; E78.00 Pure hypercholesterolemia, unspecified; E11.21 Type 2 diabetes mellitus with diabetic nephropathy; E11.22 Type 2 diabetes mellitus with diabetic chronic kidney disease; Z86.73 Personal history of transient ischemic attack (TIA), and cerebral infarction without residual deficits; E11.40 Type 2 diabetes mellitus with diabetic neuropathy, unspecified; Z95.5 Presence of coronary angioplasty implant and graft; Z79.82 Long term (current) use of aspirin; Z79.4 Long term (current) use of insulin; Z79.899 Other long term (current) drug therapy; Z79.51 Long term (current) use of inhaled steroids; Z90.49 Acquired absence of other specified parts of digestive tract
CPT/HCPCS: 36415; 80053; 83605; 83735; 84145; 85025; 86140; 87040; 87077; 87186; 93005; 99284; A9270-GY; U0002

== ENCOUNTER 2024-06-08 17:07 | Emergency (ER) | payer MEDICARE, OTHER ==
[2024-06-08 18:37] LABS: BASOPHILS PERCENT AUTO 0.4 % (0.0-1.0); EOSINOPHILS PERCENT AUTO 3.6 % (1.0-3.0); HEMATOCRIT 33.9 % (40.0-54.0); HEMOGLOBIN 10.5 g/dL (14.0-18.0); LYMPHOCYTES PERCENT AUTO 11.4 % (20.5-50.1); MEAN CORPUSCULAR HEMOGLOBIN 26.9 pg (27.0-34.0); MEAN CORPUSCULAR VOLUME 86.9 fL (80-100); MONOCYTES PERCENT AUTO 7.6 % (2-8); PLATELET COUNT,PLT 298 10^3/uL (150-450); WHITE BLOOD CELL COUNT,WBC 9.8 10^3/uL (5.0-10.0)
[2024-06-08 19:26] LABS: LACTIC ACID 1.1 mmol/L (0.4-2.0)
[2024-06-08 19:33] LABS: PROTHROMBIN TIME 10.1 SEC (9.0-12.0); PTT,PARTIAL THROMBOPLSTIN TIME 28.3 SEC (22.0-34.0)
[2024-06-08 20:01] LABS: ALBUMIN 2.6 g/dL (3.4-5.0); ANION GAP 19.5 mEq/L (7-13); BILIRUBIN TOTAL 0.5 mg/dL (0.2-1.0); BUN/CREATININE RATIO 6.7 (No establ ref range); CALCIUM 8.2 mg/dL (8.5-10.1); EST CRCL DRUG DOSING (CG) 8.05 mL/min; MAGNESIUM 2.1 mg/dL (1.8-2.4); POTASSIUM,K 5.5 mmol/L (3.5-5.1); PROTEIN TOTAL,TP 8.4 g/dL (6.4-8.2)
[2024-06-08 20:03] LABS: A/G RATIO 0.45; CREATININE 9.57 mg/dL (0.70-1.30)
[2024-06-08] MEDS ORDERED: Calcium Gluconate 10% 1 GM/10 ML SDV IVPUSH ONE (21:34)
[2024-06-08 21:53] VITALS: BP 142/73; PULSE 115
[2024-06-08] MEDS: Sodium Chloride 0.9% 10 ML Syringe FLUSH PRN (21:54)
[2024-06-08] MEDS ORDERED: Glucagon,Human Recombinant 1 MG Vial IM PRN (22:48)
[2024-06-08] MEDS: Acetaminophen 500 MG Tab PO ONE (22:51)
[2024-06-08] MEDS: Insulin Regular, Human 100 Units/ML 3 ML Vial IV ONE (23:06)
[2024-06-08] MEDS: hydrALAZINE 20 MG/ML SDV IVPUSH ONE (23:08)
[2024-06-08] MEDS: Sodium Zirconium Cyclosilicate 5 GM Packet PO ONE (23:10)
[2024-06-08] MEDS: 50% Dextrose in Water 50 ML Syringe IVPUSH PRN (23:10)
== END 2024-06-08 23:57 ==
LOC: DL.ED 17:07
DX: U07.1 COVID-19 (principal); E87.5 Hyperkalemia; R79.89 Other specified abnormal findings of blood chemistry; R60.0 Localized edema; Z99.2 Dependence on renal dialysis; I13.0 Hypertensive heart and chronic kidney disease with heart failure and stage 1 through stage 4 chronic kidney disease, or unspecified chronic kidney disease; I50.9 Heart failure, unspecified; N18.9 Chronic kidney disease, unspecified; E11.22 Type 2 diabetes mellitus with diabetic chronic kidney disease; E11.21 Type 2 diabetes mellitus with diabetic nephropathy; K21.9 Gastro-esophageal reflux disease without esophagitis; E66.9 Obesity, unspecified; Z68.43 Body mass index [BMI] 50.0-59.9, adult; Z90.49 Acquired absence of other specified parts of digestive tract; Z87.891 Personal history of nicotine dependence; Z79.899 Other long term (current) drug therapy; Z79.4 Long term (current) use of insulin; Z79.2 Long term (current) use of antibiotics
CPT/HCPCS: 36415; 71045; 73630-LT; 80053; 82550; 82947; 83605; 83735; 84145; 84484; 85025; 85610; 85730; 87040; 93005; 93010; 96374; 96375; 99285; 99285-25; A9270-GY; J0360; J1815-GY; J3490